=== PATIENT | female | born 1935 | race Caucasian/White ===

== ENCOUNTER → 2023-07-12 11:41 | Outpatient (CLI) | payer MEDICARE, OTHER, SELFPAY ==
[2023-07-12 12:56] LABS: Add Manual Diff / Slide Review NO; Basophils Absolute Auto 100 /uL (0-100); Basophils Percent Auto 1.3 % (0-2); Eosinophils Absolute Auto 200 /uL (0-450); Eosinophils Percent Auto 1.5 % (2-4); Hematocrit 34.6 % (36-46); Lymphocytes Absolute Auto 1600 /uL (1100-4500); Lymphocytes Percent Auto 14.3 % (25-40); Mean Corpuscular HGB Conc 34.7 % (30-36); Mean Corpuscular Hemoglobin 33.3 PG (26-34); Monocytes Absolute Auto 700 /uL (0-900); Monocytes Percent Auto 6.8 % (3-14); Neutrophils Absolute Auto 8300 /uL (1500-7000); Neutrophils Percent Auto 76.1 % (50-75); Platelet Count 394 X10^3/uL (150-400); Red Cell Distribution Width 14.2 % (11.6-14.8)
[2023-07-12 14:11] LABS: Alanine Aminotransferase 10 IU/L (<35); Albumin 4.1 g/dL (3.5-5.0); Albumin Globulin Ratio 1.1 (1.0-2.8); Alkaline Phosphatase 109 U/L (38-126); Aspartate Aminotransferase 23 IU/L (14-36); BUN Creatinine Ratio 25.6 (6-22); Bilirubin Total 0.4 mg/dL (0.2-1.3); Blood Urea Nitrogen 43 mg/dL (7-17); Calcium 9.8 mg/dL (8.4-10.2); Carbon Dioxide 31 mmol/L (22-32); Chloride 95 mmol/L (98-107); Estimated Glomerular Filt Rate 29 mL/min (>60); Globulin 3.7 g/dL (1.7-4.1); Glucose 100 mg/dL (80-110); HEMOLYSIS < 15 (0-50); Potassium 5.2 mmol/L (3.4-5.1); Sodium 134 mmol/L (137-145); Total Protein 7.8 g/dL (6.3-8.2)
[2023-07-13 13:09] LABS: Creatinine Urine Random 20.5 mg/dL
[2023-07-13 13:43] LABS: Microalbumi Creatinin Ratio Ur 1146.3 ug/mg CR (<30); Microalbumin Urine Random 23.5 mg/dL (0-1.6)
== END ==
PROVIDERS: PCP Family Medicine; Referring Provider Family Medicine; Visit Provider Family Medicine
DX: I10 Essential (primary) hypertension (principal); N18.30 Chronic kidney disease, stage 3 unspecified; J44.9 Chronic obstructive pulmonary disease, unspecified; Z00.00 Encounter for general adult medical examination without abnormal findings
CPT/HCPCS: 36415; 80053; 82043; 82570; 85025

== ENCOUNTER → 2023-08-06 11:15 | Outpatient (CLI) | payer MEDICARE, OTHER, SELFPAY ==
[2023-08-06 14:49] LABS: BUN Creatinine Ratio 27.7 (6-22); Blood Urea Nitrogen 41 mg/dL (7-17); Calcium 9.4 mg/dL (8.4-10.2); Carbon Dioxide 28 mmol/L (22-32); Chloride 90 mmol/L (98-107); Estimated Glomerular Filt Rate 34 mL/min (>60); Glucose 85 mg/dL (80-110); HEMOLYSIS < 15 (0-50); Potassium 5.2 mmol/L (3.4-5.1); Sodium 128 mmol/L (137-145)
== END ==
PROVIDERS: PCP Family Medicine; Referring Provider Family Medicine; Visit Provider Family Medicine
DX: E87.5 Hyperkalemia (principal)
CPT/HCPCS: 36415; 80048

== ENCOUNTER → 2024-01-04 09:37 | Outpatient (CLI) | payer MEDICARE, OTHER, SELFPAY ==
[2024-01-04 11:06] LABS: Hematocrit 31.4 % (36-46); Hemoglobin 10.7 g/dL (12.0-16.0)
[2024-01-04 11:26] LABS: BUN Creatinine Ratio 17.3 (6-22); Blood Urea Nitrogen 28 mg/dL (7-17); Calcium 8.9 mg/dL (8.4-10.2); Carbon Dioxide 31 mmol/L (22-32); Chloride 91 mmol/L (98-107); Estimated Glomerular Filt Rate 30 mL/min (>60); Glucose 141 mg/dL (80-110); HEMOLYSIS < 15 (0-50); Potassium 4.5 mmol/L (3.4-5.1); Sodium 127 mmol/L (137-145)
[2024-01-04 14:04] LABS: Creatinine Urine Random 42.2 mg/dL; Protein (Total) Urine Random 116 mg/dL (0-12); Protein Creatinine Ratio Urine 2.74 GRAM/24H
== END ==
PROVIDERS: PCP Physician Assistant; Referring Provider Student in an Organized Health Care Education/Training Program; Visit Provider Student in an Organized Health Care Education/Training Program
DX: N05.9 Unspecified nephritic syndrome with unspecified morphologic changes (principal); D64.9 Anemia, unspecified; R80.9 Proteinuria, unspecified
CPT/HCPCS: 36415; 80048; 82570; 84156; 85014; 85018

== ENCOUNTER → 2024-02-21 09:05 | Outpatient (CLI) | payer MEDICARE, OTHER, SELFPAY ==
[2024-02-21 10:28] LABS: Hematocrit 32.8 % (36-46); Hemoglobin 11.1 g/dL (12.0-16.0); Mean Corpuscular Hemoglobin 32.2 PG (26-34); Mean Corpuscular Volume 94.6 fL (80-100); Platelet Count 396 X10^3/uL (150-400); Red Blood Cell Count 3.46 X10^6/uL (4.0-5.2); Red Cell Distribution Width 14.4 % (11.6-14.8); White Blood Cell Count 7.8 X10^3/uL (4.5-11.0)
[2024-02-21 12:02] LABS: Appearance Urine UA CLEAR; Bilirubin Urine UA NEGATIVE (NEGATIVE); Color Urine UA YELLOW; Glucose Urine UA NEGATIVE (Negative); Ketones Urine UA NEGATIVE (NEGATIVE); Leukocyte Esterase Urine UA TRACE (NEGATIVE); Nitrite Urine UA NEGATIVE (Negative); Occult Blood Urine UA NEGATIVE (Negative); Protein Urine UA 1+ (Negative); Urobilinogen Urine UA 0.2 E.U./dL (0.2)
[2024-02-21 13:49] LABS: Bacteria Urine Few (2-10); RBC Urine 0-1/HPF (0-5/HPF); Urine Volume 10mL (spun)
[2024-02-21 13:50] LABS: Culture Indicated Urine Specimen Cultured; Squamous Epithelial Cell Urine 1-5 /HPF (0-5/HPF); WBC Urine 5-10/HPF (0-5/HPF); White Blood Cell Casts Urine 0-1/LPF
[2024-02-21 17:41] LABS: Creatinine Urine Random 36.28 mg/dL; Protein (Total) Urine Random 101 mg/dL (0-12); Protein Creatinine Ratio Urine 2.78 GRAM/24H; Sodium Urine Random 83 mmol/L (30-90)
[2024-02-21 20:30] LABS: Vitamin D 25 Hydroxy (D3) 51.6 ng/mL (30.0-100.0)
[2024-02-22 13:16] LABS: Albumin 3.9 g/dL (3.5-5.0); BUN Creatinine Ratio 17.5 (6-22); Blood Urea Nitrogen 29 mg/dL (7-17); Calcium 8.9 mg/dL (8.4-10.2); Carbon Dioxide 32 mmol/L (22-32); Chloride 96 mmol/L (98-107); Estimated Glomerular Filt Rate 29 mL/min (>60); Glucose 187 mg/dL (80-110); HEMOLYSIS < 15 (0-50); Phosphorous 3.7 mg/dL (2.8-4.1); Potassium 4.4 mmol/L (3.4-5.1); Sodium 133 mmol/L (137-145)
[2024-02-22 13:19] LABS: HEMOLYSIS < 15 (0-50); Thyroid Stimulating Hormone 3.62 uIU/mL (0.47-4.68)
[2024-02-22 13:38] LABS: Osmolality Urine 304 mOsmol/kg (.); Osmolality, Serum 293 mOsmol/kg (280-301)
[2024-02-22 13:49] LABS: Cortisol AM (Before 10AM) 17.5 ug/dL (4.46-22.7)
[2024-02-22 20:13] LABS: Iron 79 ug/dL (37-170)
[2024-02-22 20:24] LABS: Percent Iron Saturation 27 % (15-50); Total Iron Binding Capacity 295 ug/dL (265-497); Transferrin 226 mg/dL (206-381)
== END ==
PROVIDERS: PCP Physician Assistant; Referring Provider Student in an Organized Health Care Education/Training Program; Visit Provider Internal Medicine Nephrology
DX: E87.1 Hypo-osmolality and hyponatremia (principal); E83.30 Disorder of phosphorus metabolism, unspecified; D70.9 Neutropenia, unspecified; N05.9 Unspecified nephritic syndrome with unspecified morphologic changes; D47.2 Monoclonal gammopathy; N18.4 Chronic kidney disease, stage 4 (severe); N30.00 Acute cystitis without hematuria; E03.9 Hypothyroidism, unspecified; N25.81 Secondary hyperparathyroidism of renal origin; D63.1 Anemia in chronic kidney disease; I12.9 Hypertensive chronic kidney disease with stage 1 through stage 4 chronic kidney disease, or unspecified chronic kidney disease
CPT/HCPCS: 36415; 80069; 81001; 82043; 82306; 82533; 82570; 83540; 83550; 83930; 83935; 83970; 84156; 84300; 84443; 85027; 87086

== ENCOUNTER → 2024-05-20 07:13 | Outpatient (CLI) | payer MEDICARE, OTHER, SELFPAY ==
[2024-05-20 09:16] LABS: Hematocrit 33.6 % (36-46); Hemoglobin 11.4 g/dL (12.0-16.0)
[2024-05-20 09:51] LABS: BUN Creatinine Ratio 15.5 (6-22); Blood Urea Nitrogen 25 mg/dL (7-17); Calcium 9.2 mg/dL (8.4-10.2); Carbon Dioxide 28 mmol/L (22-32); Chloride 94 mmol/L (98-107); Estimated Glomerular Filt Rate 31 mL/min (>60); Glucose 189 mg/dL (80-110); HEMOLYSIS < 15 (0-50); Potassium 4.6 mmol/L (3.4-5.1); Sodium 130 mmol/L (137-145)
[2024-05-20 09:59] LABS: Creatinine Urine Random 76.54 mg/dL; Protein (Total) Urine Random 164 mg/dL (0-12); Protein Creatinine Ratio Urine 2.14 GRAM/24H
== END ==
PROVIDERS: PCP Physician Assistant; Referring Provider Student in an Organized Health Care Education/Training Program; Visit Provider Student in an Organized Health Care Education/Training Program
DX: N05.9 Unspecified nephritic syndrome with unspecified morphologic changes (principal); D70.9 Neutropenia, unspecified; D63.1 Anemia in chronic kidney disease; N25.81 Secondary hyperparathyroidism of renal origin; R80.9 Proteinuria, unspecified
CPT/HCPCS: 36415; 80048; 82570; 83970; 84156; 85014; 85018

== ENCOUNTER 2024-11-05 14:15 | Outpatient (RCR) | payer MEDICARE, OTHER, SELFPAY ==
[2024-06-27 17:15] VITALS: BMI 21.9
== END 2024-11-05 16:15 ==
LOC: PUL 14:15
PROVIDERS: PCP Physician Assistant; Referring Provider Student in an Organized Health Care Education/Training Program; Visit Provider Student in an Organized Health Care Education/Training Program
DX: R09.02 Hypoxemia (principal)
CPT/HCPCS: G0237; G0238

== ENCOUNTER → 2024-12-16 12:01 | Outpatient (CLI) | payer MEDICARE, OTHER, SELFPAY ==
[2024-06-27 17:15] VITALS: BMI 21.9
[2024-12-16 13:19] LABS: Hematocrit 35.6 % (36-46)
[2024-12-16 13:30] LABS: BUN Creatinine Ratio 13.6 (6-22); Blood Urea Nitrogen 19 mg/dL (7-17); Calcium 9.8 mg/dL (8.4-10.2); Carbon Dioxide 31 mmol/L (22-32); Chloride 95 mmol/L (98-107); Estimated Glomerular Filt Rate 36 mL/min (>60); Glucose 105 mg/dL (80-110); HEMOLYSIS 20 (0-50); Sodium 133 mmol/L (137-145)
[2024-12-16 13:48] LABS: Potassium 5.7 mmol/L (3.4-5.1)
[2024-12-16 14:03] LABS: Creatinine Urine Random 52.59 mg/dL; Protein (Total) Urine Random 187 mg/dL (0-12); Protein Creatinine Ratio Urine 3.55 GRAM/24H
== END ==
PROVIDERS: PCP Physician Assistant; Referring Provider Student in an Organized Health Care Education/Training Program; Visit Provider Student in an Organized Health Care Education/Training Program
DX: N05.9 Unspecified nephritic syndrome with unspecified morphologic changes (principal); D70.9 Neutropenia, unspecified; D63.1 Anemia in chronic kidney disease; N25.81 Secondary hyperparathyroidism of renal origin; R80.9 Proteinuria, unspecified
CPT/HCPCS: 36415; 80048; 82570; 83970; 84156; 85014; 85018

== ENCOUNTER → 2024-12-26 07:43 | Outpatient (CLI) | payer MEDICARE, OTHER, SELFPAY ==
[2024-06-27 17:15] VITALS: BMI 21.9
[2024-12-26 08:19] LABS: HEMOLYSIS < 15 (0-50); Potassium 4.4 mmol/L (3.4-5.1)
== END ==
PROVIDERS: PCP Physician Assistant; Referring Provider Student in an Organized Health Care Education/Training Program; Visit Provider Student in an Organized Health Care Education/Training Program
DX: E87.5 Hyperkalemia (principal)
CPT/HCPCS: 36415; 84132

== ENCOUNTER → 2025-02-17 07:17 | Outpatient (CLI) | payer MEDICARE, OTHER, SELFPAY ==
[2024-06-27 17:15] VITALS: BMI 21.9
--- NOTE | 2025-02-17 07:18 | DI.CT.S_ITS ---
PROCEDURE: CT CHEST WO CON INDICATIONS: Hypoxia, XR with possible fibrosis vs edema TECHNIQUE: Noncontrast 5 mm thick sections acquired from the pulmonary apices to the posterior costophrenic angles. 1 mm lung window, 5 mm thick coronal and sagittal and 7 mm axial MIP reformats were then acquired. For radiation dose reduction, the following was used: automated exposure control, adjustment of mA and/or kV according to patient size. COMPARISON: [facility], CR, XR CHEST 2V, 08/07/2024, 12:13. [facility], CR, XR CHEST 2V, 12/02/2024, 16:15. FINDINGS: Image quality: Diagnostic. Lower Neck: No enlarged lymph nodes. Thyroid: No thyroid nodules which require sonographic follow up, per consensus guidelines. Axillae: No enlarged lymph nodes. Chest Wall: Unremarkable. Bones: Unremarkable. Lungs and Pleura: Consolidation of the left lower lobe . Centrilobular nodules in the lower lobes. Diffuse central bronchial thickening with multiple secretions. Volume loss and bronchiectasis in the right middle lobe and lingula. Small pleural effusions. Smooth interstitial thickening. Heart: Heart size is enlarged. No pericardial effusion. Thoracic Vessels: The aorta and pulmonary arteries demonstrate normal size. Mediastinum and Dawn: No enlarged lymph nodes. Esophagus: No wall thickening. Moderate hiatal hernia. Upper Abdomen: Visualized upper abdomen solid organs and bowel loops appear normal. IMPRESSION: Consolidation of the left lower lobe, with associated centrilobular nodules in the lower lobes. Findings may indicate aspiration pneumonia versus community-acquired pneumonia with superimposed infectious/inflammatory bronchiolitis. Recommend short-term follow-up (1-2 months) to ensure resolution and exclude malignancy. 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 Moderate pulmonary edema and small pleural effusions. Dictated by: Irineo Mcginnis M.D. on 02/17/2025 at 9:29 Approved by: Irineo Mcginnis M.D. on 02/17/2025 at 9:32
[2025-02-17 08:19] LABS: Hematocrit 30.5 % (36-46); Hemoglobin 10.3 g/dL (12.0-16.0)
[2025-02-17 08:50] LABS: BUN Creatinine Ratio 16.3 (6-22); Blood Urea Nitrogen 25 mg/dL (7-17); Calcium 8.7 mg/dL (8.4-10.2); Carbon Dioxide 31 mmol/L (22-32); Chloride 96 mmol/L (98-107); Estimated Glomerular Filt Rate 32 mL/min (>60); Glucose 116 mg/dL (70-99); HEMOLYSIS 21 (0-50); Potassium 4.5 mmol/L (3.4-5.1); Sodium 135 mmol/L (137-145)
[2025-02-18 06:39] LABS: Parathyroid Hormone Int 33 pg/mL (15-65)
[2025-02-18 09:04] LABS: Creatinine Urine Random 38.29 mg/dL; Protein (Total) Urine Random 74 mg/dL (0-12); Protein Creatinine Ratio Urine 1.93 GRAM/24H
== END ==
PROVIDERS: PCP Physician Assistant; Referring Provider Student in an Organized Health Care Education/Training Program; Visit Provider Student in an Organized Health Care Education/Training Program
DX: R91.8 Other nonspecific abnormal finding of lung field (principal); J47.9 Bronchiectasis, uncomplicated; J90 Pleural effusion, not elsewhere classified; J81.1 Chronic pulmonary edema; I51.7 Cardiomegaly; K44.9 Diaphragmatic hernia without obstruction or gangrene; R09.02 Hypoxemia; N05.9 Unspecified nephritic syndrome with unspecified morphologic changes; D70.9 Neutropenia, unspecified; D63.1 Anemia in chronic kidney disease; N25.81 Secondary hyperparathyroidism of renal origin; R80.9 Proteinuria, unspecified
CPT/HCPCS: 36415; 71250; 80048; 82570; 83970; 84156; 85014; 85018

== ENCOUNTER → 2025-04-14 08:09 | Outpatient (CLI) | payer MEDICARE, OTHER, SELFPAY ==
[2025-02-20 21:08] VITALS: BMI 19.5
--- NOTE | 2025-04-14 08:12 | DI.RAD.S_ITS ---
PROCEDURE: XR CHEST 2V INDICATIONS: fu pneumonia TECHNIQUE: 2 views of the chest were acquired. COMPARISON: [facility], CR, XR CHEST 1V, 02/20/2025, 13:47. FINDINGS: Surgical changes and devices: For Lungs and pleura: Moderate diffuse increased prominence of the pulmonary vasculature. Chronic appearing scarring of the right costophrenic angle. The lungs are otherwise clear without evidence of focal consolidation. No definite pleural effusions or pneumothorax. Mediastinum: The heart is enlarged. Mediastinal contours are otherwise normal. Bones and chest wall: No suspicious bony abnormalities. Soft tissues appear unremarkable. IMPRESSION: Chronic appearing changes including cardiomegaly and diffuse increased prominence of the pulmonary vasculature as well as scarring of the right lateral costophrenic angle. No definite evidence of acute cardiopulmonary process. Dictated by: Raffi Navarro M.D. on 04/14/2025 at 10:34 Approved by: Raffi Navarro M.D. on 04/14/2025 at 10:35
[2025-04-14 09:54] LABS: NT-proBNP (BNP-Adult 18+) 2950 pg/mL (<450)
== END ==
PROVIDERS: PCP Family Medicine; Referring Provider Internal Medicine; Visit Provider Internal Medicine
DX: I50.9 Heart failure, unspecified (principal); J96.11 Chronic respiratory failure with hypoxia; J15.69 Pneumonia due to other Gram-negative bacteria; J44.9 Chronic obstructive pulmonary disease, unspecified; R13.12 Dysphagia, oropharyngeal phase; I51.7 Cardiomegaly
CPT/HCPCS: 36415; 71046; 83880

== ENCOUNTER → 2025-08-13 09:51 | Outpatient (CLI) | payer MEDICARE, OTHER, SELFPAY ==
[2025-02-20 21:08] VITALS: BMI 19.5
--- NOTE | 2025-08-13 12:26 | ST.SWALLOW ---
Visit Care Team Role Provider Type Harshal Aleman MD Attending Provider Physician Family Provider Primary Care Provider Referring Provider Specialty: Family Practice Address: [address] [place], [place] [address], [address] Email: Modified Barium Swallow Study BRAKE REPAIRER HYDRAULIC Modified Barium Swallow Study Start: 08/13/25 11:01 Freq: Status: Active Protocol: Document 08/13/25 11:02 LNK (Rec: 08/13/25 12:25 LNK Desktop) Modified Barium Swallow Study Total Time Visit Start Time 10:00 Visit Stop Time 10:45 Total Visit Minutes [address] Holly Reason for Referral Dysphagia; silent aspiration Setting Setting Outpatient Care Patient Information Identification Type Name,Date of Patient History 89 y/o with PMH of COPD, hypoxemic respiratory failure since requiring home oxygen, recurrent pneumonia, HTN, anxiety, depression, suspected ILD, 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 Pt had a prior MBSS on while an inpt for recurrent dyspnea. The results of that MBSS indicated moderate to severe oropharyngeal dysphagia. Pt was described as at a high aspiration risk of secretions and residual foods/ liquids within pharynx. Aspiration was observed with out reflexive cough noted. She reported difficulty swallowing liquids, pills and solids. She has a history of recurrent pneumonia and weight loss. pt is currently in swallow therapy for training in preventative exercises and compensatory strategies to improve swallowing safety and efficiency. BRAKE REPAIRER HYDRAULIC requested that pt have repeat MBSS to determine the efficacy of pharyngeal exercises and safe swallow strategies. Subjective Pt was seated in the flouroscopy chair with directions Observations and procedures explained for her. She indicated he understood and agreed to proceed. Patient Positioning Position View Lateral Imaging Lateral View Textures Administered Trials Presented Thin Liquid via Spoon (IDDSI 0),Thin Liquid via Cup ( IDDSI 0),Extremely Thick Liquid via Spoon (IDDSI 4), Regular (IDDSI 7) Barium Tablet Yes The IDDSI Framework Protocol: IDDSI.1 Oral Impairment Source: The Modified Barium Swallow Impairment Profile (MBSImP??) Lip Closure Interlabial escape; no progression to anterior lip Tongue Control Cohesive bolus between tongue to palatal seal During Bolus Hold Bolus Preparation/ Disorganized chewing/mashing with solid pieces of bolus Mastication unchewed Bolus Transport/ Delayed initiation of tongue motion Lingual Motion Oral Residue Residue collection on oral structures Location Tongue,Lateral sulci Initiation of Bolus head at pyriforms Pharyngeal Swallow Additional Oral *OME and DKS were observed to be WFL. Impairment *Dentition consisted a a few upper teeth and 3 lower Observations teeth. *Mastication observed with anterior munching pattern with solid pieces of bolus unchewed *Reduced bolus formation, control and delayed AP transition. *Initiation of swallow delayed Pharyngeal Impairment Source: The Modified Barium Swallow Impairment Profile (MBSImP??) Soft Palate Trace column of contrast between soft palate & Elevation pharyngeal wall Laryngeal Elevation Part.sup.move.thyroid cart/part.approx.arytenoids to epiglot.petiole Anterior Hyoid No anterior movement Excursion Epiglottic Movement Partial inversion Laryngeal Vestibular Incomplete; narrow column air/contrast in laryngeal Closure vestibule Pharyngeal Stripping Present - diminished Wave Pharyngoesophageal Partial distention/partial duration; partial Segment Opening obstruction of flow Tongue Base Wide column of contrast/air betwn tongue base & post. Retraction pharyngeal wall Pharyngeal Residue Minimal to no pharyngeal clearance Location Diffuse (>3 areas) Additional *Weak tongue base retraction and hyolaryngeal elevation Pharyngeal and movement. Weak pharyngeal musculature overall Impairment *Weak posterior pharyngeal strength, reducing bolus Observations control *Epiglottic inversion inconsistent: No inversion to full observed with weak seal of the laryngeal vestibule *Significant diffuse pharyngeal pooling observed *Laryngeal penetration of pharyngeal residue *No tracheal aspiration observed *Reduced extension/duration of UES with partial obstruction of bolus flow *In the lateral position a barium tablet was retained in the valeculla. Cued effortful swallow was effective in clearing tablet to the esophagus *Pt observed to use double swallow strategy as instructed by BRAKE REPAIRER HYDRAULIC A/P View The IDDSI Framework Protocol: IDDSI.1 A/P View Observations Additional A-P No AP trials were attempted Observations Clinical Impressions Dysphagia Type Oral,Pharyngeal Findings *Mild oral dysphagia with moderate pharyngeal phase observed *Laryngeal penetration of pharyngeal residue/secretions observed *Pt is moderate aspiration risk of secretions and residual foods/liquids within pharynx - this is an improvement from MBSS result of 02/24/25 *Double swallow was observed spontaneously with minimal effect on pharyngeal residue (semi-solid and solid trials) *Effortful swallow strategy (repeated) was effective in residue clearance. Multiple swallows were required ( cued) Current safe swallow strategies effective. Recommend to continue *Weak cough Rehabilitation Good Potential Patient Appropriate Yes: Continue current ST POC for Therapy Recommendations Diet Liquids Order Thin (IDDSI 0) Diet Order Soft & Bite-sized (IDDSI 6) Medication Whole in Carrier,Crushed in Carrier Recommendation Aspiration Precautions Recommended Upright at 90 Degrees,Small Bites/Sips Precautions Treatment Plan Therapy Outpatient Speech Therapy Recommendations Therapy Strategy Small Bites and Sips Recommendations Additional Effortful swallow and double swallow strategies Strategies Recommended
== END ==
LOC: RAD 09:52
PROVIDERS: Family Provider Family Medicine; PCP Family Medicine; Referring Provider Family Medicine; Visit Provider Family Medicine
DX: R13.10 Dysphagia, unspecified (principal)
CPT/HCPCS: 74230; 92611

== ENCOUNTER 2025-09-10 13:45 | Outpatient (RCR) | payer MEDICARE, OTHER, SELFPAY ==
[2025-02-20 21:08] VITALS: BMI 19.5
--- NOTE | 2025-07-23 18:34 | ST.OPIE ---
Visit Care Team Role Provider Type Harshal Aleman MD Family Provider Physician Primary Care Provider Specialty: Family Practice Address: [address] [place] [address], [id number] Email: Nahun Jacobs MD Attending Provider Physician Referring Provider Specialty: Pulmonology Address: [address] [place] [address] [address], [place], [address] Email: [email or web address] Speech-Language Pathology Initial Evaluation THIRD RIGGER Clinical Swallow Evaluation Start: 07/23/25 17:52 Freq: Status: Active Protocol: Document 07/23/25 17:52 SS (Rec: 07/23/25 18:34 SS [email or web address]) Clinical Swallow Evaluation Session Time Visit Start Time 14:30 Visit Stop Time 15:15 Total Visit Minutes 45 Visit Information Visit Number 1 Plan of Care Dates 07/23/25-10/22/25 Insurance Medicare (kx modifier after x19 visits) Information Referral Referring Provider Nahun Jacobs MD Reason for Referral Dysphagia Setting Assessment Location Outpatient Care Visit Type Note Type Initial evaluation Next Note Type Next Note Type Treatment Note Patient Information Identification Type Name History Abbie Gray is an 89-year-old female, referred for a clinical swallow evaluation by Dr. Nahun Jacobs following MBSS completed in February 2025. Pt was hospitalized from February 20 to Feb 25 2025 with multifocal pneumonia secondary to ongoing frequent daily aspiration with acute on chronic hypoxic respiratory failure. 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 Chest x-ray showed a large hiatal hernia which is predisposing dysphagia risk factor. Pt denied GERD, esophageal issues, and changes to voice. Pt endorses changes in swallowing around two years ago, which have gradually become worse. She denied overt s/ sx of aspiration of sensation of solids sticking in her throat. She reported unintentional weight loss of about 20 lbs over the past two years. MBSS was completed on 02/24/25 with the following results: ? Moderate to severe oropharyngeal dysphagia. Pt is high aspiration risk of secretions and residual foods/ liquids within pharynx. Double swallow (cued) is beneficial in reducing secretions/residual. Weak cough. ? Additionally, pt demonstrated ?frequent penetration into the laryngeal vestibule of contrast residue/ secretions and tracheal aspiration observed with no reflexive cough; cued cough did not clear aspirated contrast.? Please see full MBSS report. Subjective Pt arrived ot he session on time with her granddaughter Observations . She lives with family. Pt had NC in place of supplemental oxygen. She was alert and oriented and able to relate case history. Reported by Patient/Caregiver Other Symptoms Difficulty swallowing liquids,Difficulty swallowing pills,Difficulty swallowing solids,History of aspiration or pneumonia,Weight loss Comment Pt denied overt s/sx of aspiration and it appears that aspiration is silent given MBSS report. She does not sensate to pharyngeal residue. Pt was seen by home health following hospital stay and has been completing exercises. Additionally, she is careful to cut her food and uses a double-swallow with all intake. BASELINE LEVEL OF FUNCTION Solids: Regular (self-selects softer items) Liquids: Thin Medications: Whole in puree carrier Functional Oral Intake Scale (FOIS): FOIS level 6 FOIS [place]: Level 1 = no oral intake, Level 2 = tube dependent with minimal/inconsistent oral intake, Level 3 = tube supplements with consistent oral intake, Level 4 = total oral intake of a single consistency, Level 5 = total oral intake of multiple consistencies requiring special preparation, Level 6 = total oral intake with no special preparation, but must avoid specific foods or liquid items, Level 7 = total oral intake with no restrictions Current Diet Regular (IDDSI 7) Baseline Feeding Independent in self-feeding Method Type of Patient EAT-10 Questionnaire (e.g., EAT-10, MDADI, etc. ) Results The Eating Assessment Tool (EAT-10) was administered. This tool is a symptom-specific outcome instrument for dysphagia. It consists of ten statements regarding the patient?s swallow and the patient scores each on a scale of 0-4, with 0 indicating no problem and 4 indicating a severe problem. A score of >3/40 could indicate a swallowing impairment that warrants further assessment/treatment. The patient scored a 8/40, indicating the need for further assessment. The IDDSI Framework Protocol: IDDSI.1 Objective Assessment Mental Status Alert,Responsive,Cooperative Oral Integrity WFL Dentition Missing teeth Lip Function Within normal limits Tongue Function Within normal limits Jaw Function Within normal limits Hard/Soft Palate Within normal limits Function Respiratory Mild impairment Sufficiency Comment On supplemental oxygen via NC. Food and Liquid Trials Position During Upright (90 degrees) Assessment Liquids Trialed Thin (IDDSI 0) Solid Trials Purred (IDDSI 4),Soft & Bite-sized (IDDSI 6),Regular ( IDDSI 7) Administration Type Cup single sip,Controlled cup sip,Self-feeding Oral Impairment Mildly impaired Oral Phase Comments Per MBSS report: Lip Closure: Interlabial escape; no progression to anterior lip Tongue Control During Bolus Hold: Cohesive bolus between tongue to palatal seal Bolus Preparation/Mastication: Disorganized chewing/ mashing with solid pieces of bolus unchewed Bolus Transport/Lingual Motion: Delayed initiation of tongue motion Oral Residue: Residue collection on oral structures Initiation of Pharyngeal Swallow: Bolus head at pyriforms During trials, pt demonstrated adequate bolus retrieval and mild anterior loss of liquids. She exhibited mildly prolonged bolus manipulation and reduced oral clearance resulting in moderate oral residue. Pt cleared independently with liquid wash. Pharyngeal Severely impaired Impairment Pharyngeal Phase Per MBSS report: Comments Soft Palate Elevation: No bolus between soft palate & pharyngeal wall Laryngeal Elevation: Partial superior movement of thyroid cartilage and partial approximation of arytenoids to epiglottic petiole Anterior Hyoid Excursion: No anterior movement Epiglottic Movement: No inversion (ranging from partial inversion to no inversion) Laryngeal Vestibular: Closure Incomplete; narrow column air/ contrast in laryngeal vestibule Pharyngeal Stripping Wave: Present - diminished Pharyngoesophageal Segment Opening: Complete distention & complete duration; no obstruction of flow Tongue Base Retraction: Wide column of contrast/air between tongue base & posterior pharyngeal wall Pharyngeal Residue: Collection of residue within/on pharyngeal structures Additionally, frequent penetration into the laryngeal vestibule of contrast residue/secretions was noted. Tracheal aspiration observed with no reflexive cough; cued cough did not clear aspirated contrast. While pt did not demonstrate overt s/sx of aspiration or sensate to pharyngeal residue during trials today, pt has history of reduced pharyngeal sensation and silent aspiration given MBSS results. Fatigue/Endurance Mild fatigue Strategies Attempted Other Response/Comments Use of multiple swallows was effective during MBSS in reducing pharyngeal residue, though not completely. Neela Swallow No Protocol Results Known silent aspiration The IDDSI Framework Protocol: IDDSI.1 Findings Swallowing Function Oropharyngeal phase dysphagia Severity of Swallow Moderately-severely impaired Impairment Contributing Factors Reduced oral strength/coordination/sensation, to Swallow Mastication inefficiency,Impaired oral-pharyngeal Impairment transport,Delayed swallow initiation,Reduced laryngeal excursion,Impaired airway protection,Excessive pharyngeal residue Prognosis Fair Based on Age,History of aspiration/aspiration pneumonia, Comorbidities,Duration of symptoms/severity Comment Pt presents with mild oral dysphagia and moderate- severe pharyngeal dysphagia. Oral phase of swallow characterized by interlabial escape, disorganized mastication, delayed initiation of tongue motion, and oral residue. Pharyngeal phase of swallow was characterized by diminished pharyngeal stripping wave, reduced tongue base retraction, reduced laryngeal elevation and excursion, and inconsistent epiglottic inversion. This resulted in collection of pharyngeal residue primarily at the base of tongue, posterior pharyngeal wall, valleculae, and pyriform sinuses, frequent penetration, and silent aspiration. Swallow safety and efficiency are compromised. Based on pt?s current fair oral health status and compromised immune function, pt remains at a high risk of pulmonary compromise associated with aspiration at this time. Pt appears to be at a moderate risk for malnutrition/ dehydration given reduced appetite and weight loss. Diet modification/nonoral nutrition not indicated. Swallow prognosis is fair, given chronic nature of pt?s dysphagia and present comorbidities. Pt appears to be a good candidate for behavioral swallow rehabilitation for training in preventative exercises and compensatory strategies to improve swallowing safety and efficiency . Impact on Safety and Risk for aspiration,Risk for inadequate nutrition/ Functioning hydration Recommendations Instrumental Yes Assessment Swallowing Treatment Yes Frequency 1x/week Duration 3 months Recommended Solids Regular (IDDSI 7) Recommended Liquids Thin (IDDSI 0) Other Pt would benefit from repeat MBSS, though pt is Recommendations reluctant to complete at this time. Safety Precautions/ Remain upright (90 degrees) during all oral intake, Swallowing Upright position at least 30 minutes after meals,Small Recommendations bites and sips when eating,Slow rate; swallow between bites,No straw,Multiple swallows,Alternate liquids and solids,Strict oral care after intake,Check for pocketing Medication As Tolerated,Whole in Carrier,Crushed in Carrier Recommendations Referrals Recommended Dietary Referrals Education Patient/Caregiver Described results of evaluation,Patient expressed Education understanding of evaluation,Patient expressed agreement with goals & treatment plans Goals Short-term Goals 1. Patient will complete pharyngeal swallowing exercises as instructed by the THIRD RIGGER with the use of written supports and verbal cueing in order to improve swallow function and efficiency; including, but not limited to, effortful swallow, Michel, Chin Tuck Against Resistance (CTAR), Shaker, and supraglottic swallow to improve pharyngeal contraction. 2. Patient will complete daily exercises as evidenced by patient report and/or HEP tracker in order to improve swallow function. 3. Patient will use compensatory meal strategies with 90% accuracy to increase safety with PO intake per pt report. Long-term Goals 1. Patient will safely tolerate least restrictive diet consistency to allow for safe consumption of daily meals without s/sx of aspiration. 2. Patient will improve self-perception of swallowing from a baseline of on the EAT-10 following participation in [facility] rehabilitative [facility]
--- NOTE | 2025-07-23 18:34 | ST.OPPOC ---
Physical, Occupational & Speech Therapy At [facility] Visit Care Team Role Provider Type Harshal Aleman MD Family Provider Physician Primary Care Provider Address: [address] [place] [address], [place], [address] Nahun Jacobs MD Attending Provider Physician Referring Provider Address: [address] [place] [address] [address], [place], [address] Speech Pathology Plan of Care Plan of Care Dates 07/23/25-10/22/25 Referring Provider Nahun Jacobs MD Patient History Abbie Gray is an 89-year-old female, referred for a clinical swallow evaluation by Dr Yuni Jacobs following MBSS completed in February 2025. Pt was hospitalized from February 20 to Feb 25 2025 with multifocal pneumonia secondary to ongoing frequent daily aspiration with acute on chronic hypoxic respiratory failure. 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 Chest x-ray showed a large hiatal hernia which is predisposing dysphagia risk factor. Pt denied GERD, esophageal issues, and changes to voice. Pt endorses changes in swallowing around two years ago, which have gradually become worse. She denied overt s/sx of aspiration of sensation of solids sticking in her throat. She reported unintentional weight loss of about 20 lbs over the past two years. MBSS was completed on 02/24/25 with the following results: ?Moderate to severe oropharyngeal dysphagia. Pt is high aspiration risk of secretions and residual foods/liquids within pharynx. Double swallow (cued) is beneficial in reducing secretions/residual. Weak cough.? Additionally, pt demonstrated ?frequent penetration into the laryngeal vestibule of contrast residue/secretions and tracheal aspiration observed with no reflexive cough; cued cough did not clear aspirated contrast.? Please see full MBSS report. MBS Comments *Moderate to severe oropharyngeal dysphagia *Pt is high aspiration risk of secretions and residual foods/liquids within pharynx *Double swallow (cued) is beneficial in reducing secretions/residual *Weak cough ST/swallow therapy recommended targeting base of tongue and safe swallow strategies Short-term Goals 1. Patient will complete pharyngeal swallowing exercises as instructed by the BUCKSHOT SWAGE OPERATOR with the use of written supports and verbal cueing in order to improve swallow function and efficiency; including, but not limited to, effortful swallow , Michel, Chin Tuck Against Resistance (CTAR ), Shaker, and supraglottic swallow to improve pharyngeal contraction. 2. Patient will complete daily exercises as evidenced by patient report and/or HEP tracker in order to improve swallow function. 3. Patient will use compensatory meal strategies with 90% accuracy to increase safety with PO intake per pt report. Long-term Goals 1. Patient will safely tolerate least restrictive diet consistency to allow for safe consumption of daily meals without s/sx of aspiration. 2. Patient will improve self-perception of swallowing from a baseline of on the EAT-10 following participation in skilled rehabilitative services Comment: Electronically Signed by: CAROLINA Blanton 07/23/25 1821 If you are in agreement with this Plan of Care, please return a signed and dated copy. I have reviewed this Plan of Care and certify that the skilled therapy services above are required to meet the patient?s needs. Physician Signature Date Printed Name and Credentials Clinical Instructor Signature Printed Name and Credentials
--- NOTE | 2025-07-23 18:43 | ST.OPPOC ---
Addendum entered and electronically signed by Daryl Nielsen 07/23/25 18:45: POC sent to referring provider. Original Note: Physical, Occupational & Speech Therapy At [facility] Visit Care Team Role Provider Type Harshal Aleman MD Family Provider Physician Primary Care Provider Address: [address] [place] [address], [address] Nahun Jacobs MD Attending Provider Physician Referring Provider Address: [address] [place] [address] [address], [place], [address] Speech Pathology Plan of Care Plan of Care Dates 07/23/25-10/22/25 Referring Provider Nahun Jacobs MD Patient History Abbie Gray is an 89-year-old female, referred for a clinical swallow evaluation by Dr Yuni Jacobs following MBSS completed in February 2025. Pt was hospitalized from February 20 to Feb 25 2025 with multifocal pneumonia secondary to ongoing frequent daily aspiration with acute on chronic hypoxic respiratory failure. 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 Chest x-ray showed a large hiatal hernia which is predisposing dysphagia risk factor. Pt denied GERD, esophageal issues, and changes to voice. Pt endorses changes in swallowing around two years ago, which have gradually become worse. She denied overt s/sx of aspiration of sensation of solids sticking in her throat. She reported unintentional weight loss of about 20 lbs over the past two years. MBSS was completed on 02/24/25 with the following results: ?Moderate to severe oropharyngeal dysphagia. Pt is high aspiration risk of secretions and residual foods/liquids within pharynx. Double swallow (cued) is beneficial in reducing secretions/residual. Weak cough.? Additionally, pt demonstrated ?frequent penetration into the laryngeal vestibule of contrast residue/secretions and tracheal aspiration observed with no reflexive cough; cued cough did not clear aspirated contrast.? Please see full MBSS report. MBS Comments *Moderate to severe oropharyngeal dysphagia *Pt is high aspiration risk of secretions and residual foods/liquids within pharynx *Double swallow (cued) is beneficial in reducing secretions/residual *Weak cough ST/swallow therapy recommended targeting base of tongue and safe swallow strategies Short-term Goals 1. Patient will complete pharyngeal swallowing exercises as instructed by the MAINTAINABILITY ENGINEER with the use of written supports and verbal cueing in order to improve swallow function and efficiency; including, but not limited to, effortful swallow , Michel, Chin Tuck Against Resistance (CTAR ), Shaker, and supraglottic swallow to improve pharyngeal contraction. 2. Patient will complete daily exercises as evidenced by patient report and/or HEP tracker in order to improve swallow function. 3. Patient will use compensatory meal strategies with 90% accuracy to increase safety with PO intake per pt report. Long-term Goals 1. Patient will safely tolerate least restrictive diet consistency to allow for safe consumption of daily meals without s/sx of aspiration. 2. Patient will improve self-perception of swallowing from a baseline of on the EAT-10 following participation in skilled rehabilitative services Comment: Electronically Signed by: CAROLINA Blanton 07/23/25 [id number] If you are in agreement with this Plan of Care, please return a signed and dated copy. I have reviewed this Plan of Care and certify that the skilled therapy services above are required to meet the patient?s needs. Physician Signature Date Printed Name and Credentials Clinical Instructor Signature Printed Name and Credentials
--- NOTE | 2025-07-30 15:09 | ST.IPDYTX ---
Visit Care Team Role Provider Type Harshal Aleman MD Family Provider Physician Primary Care Provider Specialty: Family Practice Address: [address] [place] [address], [place], [address] Email: Nahun Jacobs MD Attending Provider Physician Referring Provider Specialty: Pulmonology Address: [address] [place] [address] [address], [place], [address] Email: [email or web address] Dysphagia Treatment UNDER PRESSER Dysphagia Treatment Start: 07/23/25 17:52 Freq: Status: Active Protocol: Document 07/30/25 14:53 SS (Rec: 07/30/25 15:05 SS [email or web address]) Dysphagia Treatment Session Time Visit Start Time 13:45 Visit Stop Time 14:20 Total Visit Minutes 35 Visit Information Visit Number 2 Plan of Care Dates 07/23/25-10/22/25 Insurance Medicare (kx modifier after x19 visits) Information Setting Assessment Location Outpatient Care Visit Type Note Type Treatment Note Next Note Type Next Note Type Treatment Note Patient Information Identification Type Name Subjective Pt arrived to the session on time with her Observations granddaughter. Pt had NC in place for supplemental oxygen. She was engaged and motivated to participate in the session. Treatment Liquids Trialed Thin (IDDSI 0) Solids Trialed Purred (IDDSI 4) Administration Type Tea Spoon,Cup Single Sip,Controlled Cup Sip,Self- Feeding Pharyngeal Double Swallow,Effortful Swallow,Alternate Liquids/ Strategies Solids Treatment Activities Education re: MBSS results and safe swallowing strategies. Introduced rehabilitative exercises on this date to target oropharyngeal dysphagia. Reviewed HEP at end of session and provided handouts for improved understanding and recall. Initiated form for EMST-75 Medicare coverage. The IDDSI Framework Protocol: IDDSI.1 Assessment Patient Response to Good Treatment Rehab Potential Fair Assessment of UNDER PRESSER provided education re: normal swallow anatomy and Improvement physiology and the results of the MBSS. Utilized a visual diagram to improve pt?s understanding. Pt expressed understanding re: results. Educated pt re: recommended safe swallow precautions to reduce the risk of aspiration, including small bites/ sips, slow rate, alternating liquids and solids, upright positioning during PO intake, limiting distractions, and avoiding talking while eating. Pt verbalized understanding. Introduced rehabilitative exercises on this date to target oropharyngeal dysphagia. Instructed pt in the Effortful Swallow to improve tongue to palate contact, base of tongue retraction, hyolaryngeal elevation and excursion, pharyngeal constriction, and opening of the upper esophageal sphincter for improved swallowing safety and efficiency . Provided education re: form and goal of the exercise for decreased pharyngeal residue and improved laryngeal vestibule closure. Bolus-driven effortful swallows completed with the following consistencies: Thin (about 5 ml): 21/21 successful swallows; average of 1-2 swallows per bolus. Puree (about 5 ml): 35/35 successful swallows; average of 2-3 swallows per bolus. No strong post-swallow cough was observed; however, overt s/sx of aspiration cannot be ruled out as pt presented with silent aspiration on MBSS. Pt benefited from UNDER PRESSER cueing and modeling during the exercise to slow her rate and press her tongue against the roof of his mouth. UNDER PRESSER provided education in utilizing 2 swallows if needed. Utilized visual diagram to explain how residue could build and the importance of clearing materials prior to taking another bite. Reviewed HEP at the conclusion of the session, with pt verbalizing understanding. HEP Recommendation: use safe swallowing strategies with intake, oral care TID (before and after meals), effortful swallow 30-50 reps with thin liquid and/or puree. Completed about half of the form required for Medicare coverage of EMST-75 for increased cough strength and airway protection. Plan to complete in next session. Additionally, pt expressed interest in repeat MBSS to trial strategies to reduce aspiration and determine most effective strategies. UNDER PRESSER to request PCP place order. Pt participated well in the treatment session on this date. Extensive education re: MBSS results, recommendations, and rehabilitative exercises provided. Pt expressed understanding and motivation to participate in HEP. Plan for pt to implement HEP and report back progress in the following session. Plan to complete EMST-75 form and advance effortful swallows if pt is consistent with exercises provided today. Continue targeting oropharyngeal dysphagia at a frequency of once a week given pt report and progress with HEP. Recommendations Liquids Order Thin (IDDSI 0) Diet Order Regular (IDDSI 7) Medication As Tolerated,Whole in Carrier,Crushed in Carrier Recommendations Additional Dietary No Straws Needs Aspiration Precautions Recommended Upright at 90 Degrees,Frequent Rest Periods,Small Bites Precautions /Sips,Effortful Swallow,Double Swallow,Check for Pocketing Treatment Plan Appropriate for Yes Continued Therapy Dysphagia Goals STG1. Patient will complete pharyngeal swallowing exercises as instructed by the UNDER PRESSER with the use of written supports and verbal cueing in order to improve swallow function and efficiency; including, but not limited to, effortful swallow, Michel, Chin Tuck Against Resistance (CTAR), Shaker, and supraglottic swallow to improve pharyngeal contraction. STG2. Patient will complete daily exercises as evidenced by patient report and/or HEP tracker in order to improve swallow function. STG3. Patient will use compensatory meal strategies with 90% accuracy to increase safety with PO intake per pt report. LTG1. Patient will safely tolerate least restrictive diet consistency to allow for safe consumption of daily meals without s/sx of aspiration. LTG2. Patient will improve self-perception of swallowing from a baseline of on the EAT-10 following participation in [facility] rehabilitative services.
--- NOTE | 2025-08-06 16:11 | ST.IPDYTX ---
Visit Care Team Role Provider Type Harshal Aleman MD Family Provider Physician Primary Care Provider Specialty: Family Practice Address: [address] [place], [place] [address], [place], [address] Email: Nahun Jacobs MD Attending Provider Physician Referring Provider Specialty: Pulmonology Address: [address] [place] [address] [address], [place], [address] Email: [email or web address] Dysphagia Treatment DEPARTMENT MGR Dysphagia Treatment Start: 07/23/25 17:52 Freq: Status: Active Protocol: Document 08/06/25 16:03 SS (Rec: 08/06/25 16:11 SS [email or web address]) Dysphagia Treatment Session Time Visit Start Time 14:30 Visit Stop Time 14:55 Total Visit Minutes 25 Visit Information Visit Number 3 Plan of Care Dates 07/23/25-10/22/25 Insurance Medicare (kx modifier after x19 visits) Information Setting Assessment Location Outpatient Care Visit Type Note Type Treatment Note Next Note Type Next Note Type Treatment Note Patient Information Identification Type Name Subjective Pt arrived to the session on time with her Observations granddaughter. Pt had NC in place for supplemental oxygen. She was engaged and motivated to participate in the session. Treatment Liquids Trialed Thin (IDDSI 0) Administration Type Cup Single Sip,Controlled Cup Sip,Self-Feeding Pharyngeal Double Swallow,Effortful Swallow Strategies Treatment Activities Continued rehabilitative exercises on this date to target oropharyngeal dysphagia, specifically effortful swallows. Reviewed HEP at end of session and provided handouts for improved understanding and recall. Completed form for EMST-75 Medicare coverage. The IDDSI Framework Protocol: IDDSI.1 Assessment Patient Response to Good Treatment Rehab Potential Fair Assessment of DEPARTMENT MGR facilitated discussion re: pt?s swallowing since Improvement the last session. Pt reported she has been cognizant of using recommended swallowing strategies. She was able to complete effortful swallows every other day. Encouraged pt to complete HEP twice a day, which she was agreeable to. Continued rehabilitative exercises on this date to target oropharyngeal dysphagia. Instructed pt in the Effortful Swallow to improve tongue to palate contact, base of tongue retraction, hyolaryngeal elevation and excursion, pharyngeal constriction, and opening of the upper esophageal sphincter for improved swallowing safety and efficiency . Provided education re: form and goal of the exercise for decreased pharyngeal residue and improved laryngeal vestibule closure. Bolus-driven effortful swallows completed with the following consistencies: Thin (about 5 ml): 4/4 successful swallows; average of 1-2 swallows per bolus. After 4 repetitions, pt?s oxygen dropped from mid 90 to mid 70 SpO2, which is abnormal for her. It took about 3-4 minutes for it to return to baseline. Attempted another repetition, though oxygen level dropped again. Discontinued exercise and stopped session early. Completed form for Medicare coverage of EMST-75 for increased cough strength and airway protection. Plan for pt to sign and submit next session. Additionally, called PCP re: repeat MBSS order, but unable to get through. Provided family with name of study to request and will re-attempt. Reviewed HEP at the conclusion of the session, with pt verbalizing understanding. HEP Recommendation: use safe swallowing strategies with intake, oral care TID (before and after meals), effortful swallow 30-50 reps with thin liquid and/or puree. Limited session today given reduced oxygen levels and pt expressed increased stridor with inhalation. Recommended pt and family bring this up to PCP, which they were agreeable to. Pt expressed understanding and motivation to participate in HEP. Plan for pt to implement HEP and report back progress in the following session. Continue targeting oropharyngeal dysphagia at a frequency of once a week given pt report and progress with HEP. Recommendations Liquids Order Thin (IDDSI 0) Diet Order Regular (IDDSI 7) Medication As Tolerated,Whole in Carrier,Crushed in Carrier Recommendations Additional Dietary No Straws Needs Aspiration Precautions Recommended Upright at 90 Degrees,Frequent Rest Periods,Small Bites Precautions /Sips,Effortful Swallow,Double Swallow,Check for Pocketing Treatment Plan Placement [facility] Recommendation after Discharge Appropriate for Yes Continued Therapy Dysphagia Goals STG1. Patient will complete pharyngeal swallowing exercises as instructed by the DEPARTMENT MGR with the use of written supports and verbal cueing in order to improve swallow function and efficiency; including, but not limited to, effortful swallow, Michel, Chin Tuck Against Resistance (CTAR), Shaker, and supraglottic swallow to improve pharyngeal contraction. STG2. Patient will complete daily exercises as evidenced by patient report and/or HEP tracker in order to improve swallow function. STG3. Patient will use compensatory meal strategies with 90% accuracy to increase safety with PO intake per pt report. LTG1. Patient will safely tolerate least restrictive diet consistency to allow for safe consumption of daily meals without s/sx of aspiration. LTG2. Patient will improve self-perception of swallowing from a baseline of on the EAT-10 following participation in [facility] rehabilitative services.
--- NOTE | 2025-08-13 16:09 | ST.IPDYTX ---
Visit Care Team Role Provider Type Harshal Aleman MD Family Provider Physician Primary Care Provider Specialty: Family Practice Address: [address] [place], [place] [address], [place], [address] Email: Nahun Jacobs MD Attending Provider Physician Referring Provider Specialty: Pulmonology Address: [address] [place] [address] [address], [place], [address] Email: [email or web address] LOG CUT OFF SAWYER Dysphagia Treatment LOG CUT OFF SAWYER Dysphagia Treatment Start: 07/23/25 17:52 Freq: Status: Active Protocol: Document 08/13/25 15:17 SS (Rec: 08/13/25 15:19 SS [email or web address]) Dysphagia Treatment Session Time Visit Start Time 13:45 Visit Stop Time 14:28 Total Visit Minutes 43 Visit Information Visit Number 4 Plan of Care Dates 07/23/25-10/22/25 Insurance Medicare (kx modifier after x19 visits) Information Setting Assessment Location Outpatient Care Visit Type Note Type Treatment Note Next Note Type Next Note Type Treatment Note Patient Information Identification Type Name Subjective Pt arrived to the session on time with her daughter and Observations granddaughter. Pt had NC in place for supplemental oxygen. She was engaged and motivated to participate in the session. Treatment Liquids Trialed Thin (IDDSI 0) Solids Trialed Purred (IDDSI 4) Administration Type Cup Single Sip,Controlled Cup Sip,Self-Feeding Pharyngeal Double Swallow,Effortful Swallow Strategies Treatment Activities Reviewed repeat MBSS results. Continued rehabilitative exercises on this date to target oropharyngeal dysphagia, specifically effortful swallows. Reviewed HEP at end of session and provided handouts for improved understanding and recall. Submitted form for [facility] Medicare coverage. The IDDSI Framework Protocol: IDDSI.1 Assessment Patient Response to Good Treatment Rehab Potential Fair Assessment of LOG CUT OFF SAWYER reviewed results from repeat MBSS. No change with Improvement oral phase function, but pt did demonstrate increased epiglottic movement. Additionally, while frequent penetration into the laryngeal vestibule was observed, no aspiration was observed across the study. Pt was able to independently utilize multiple swallows to clear pharyngeal residue. When she utilized effortful swallows, she demonstrated increased pharyngeal clearance. Recommendations were to continue current diet level and utilize multiple swallows and effortful swallows to increase swallowing safety and efficiency. Pt and family expressed understanding of education. Continued rehabilitative exercises on this date to target oropharyngeal dysphagia. Instructed pt in the Effortful Swallow to improve tongue to palate contact, base of tongue retraction, hyolaryngeal elevation and excursion, pharyngeal constriction, and opening of the upper esophageal sphincter for improved swallowing safety and efficiency . Provided education re: form and goal of the exercise for decreased pharyngeal residue and improved laryngeal vestibule closure. Bolus-driven effortful swallows completed with the following consistencies: Thin (small sips via cup): 10/11 successful swallows; average of 1-2 swallows per bolus. 1x immediate post- swallow weak cough. Encouraged pt to utilize strong cough to improve airway clearance. Given cueing, she was bale to produce subjectively stronger cough. Puree via tsp: 15/15 successful swallows; average of 2- 3 swallows per bolus. Pt was able to independently utilize multiple swallows to increase clearing of pharyngeal residue. Submitted form for Medicare coverage of EMST-75 for increased cough strength and airway protection. Will initiate use once pt receives the device. Reviewed HEP at the conclusion of the session, with pt verbalizing understanding. HEP Recommendation: use safe swallowing strategies with intake, oral care TID (before and after meals), effortful swallow 30-50 reps with thin liquid and/or puree. Pt is demonstrating some improvement with swallowing safety and efficiency as indicated during repeat MBSS, with no aspiration and reduced pharyngeal residue noted . Pt expressed understanding and motivation to participate in HEP. Plan for pt to implement HEP and report back progress in the following session. Plan to introduce CTAR next session as pt reported she completes effortful swallows at least twice a day. Continue targeting oropharyngeal dysphagia at a frequency of once a week given pt report and progress with HEP. Recommendations Liquids Order Thin (IDDSI 0) Diet Order Regular (IDDSI 7) Medication Whole in Carrier,Crushed in Carrier Recommendations Additional Dietary No Straws Needs Aspiration Precautions Recommended Upright at 90 Degrees,Frequent Rest Periods,Small Bites Precautions /Sips,Effortful Swallow,Double Swallow,Check for Pocketing Treatment Plan Placement [facility] Recommendation after Discharge Appropriate for Yes Continued Therapy Dysphagia Goals STG1. Patient will complete pharyngeal swallowing exercises as instructed by the LOG CUT OFF SAWYER with the use of written supports and verbal cueing in order to improve swallow function and efficiency; including, but not limited to, effortful swallow, Michel, Chin Tuck Against Resistance (CTAR), Shaker, and supraglottic swallow to improve pharyngeal contraction. STG2. Patient will complete daily exercises as evidenced by patient report and/or HEP tracker in order to improve swallow function. STG3. Patient will use compensatory meal strategies with 90% accuracy to increase safety with PO intake per pt report. LTG1. Patient will safely tolerate least restrictive diet consistency to allow for safe consumption of daily meals without s/sx of aspiration. LTG2. Patient will improve self-perception of swallowing from a baseline of on the EAT-10 following participation in [facility] rehabilitative services.
--- NOTE | 2025-08-20 12:56 | ST.IPDYTX ---
Visit Care Team Role Provider Type Harshal Aleman MD Family Provider Physician Primary Care Provider Specialty: Family Practice Address: [address] [place], [place] [address], [address] Email: Nahun Jacobs MD Attending Provider Physician Referring Provider Specialty: Pulmonology Address: [address] [place] [address] [address], [place], [address] Email: [email or web address] AWNING [email or web address] Dysphagia Treatment AWNING ERECTOR Dysphagia Treatment Start: 07/23/25 17:52 Freq: Status: Active Protocol: Document 08/20/25 12:47 SS (Rec: 08/20/25 12:56 SS [email or web address]) Dysphagia Treatment Session Time Visit Start Time 12:05 Visit Stop Time 12:42 Total Visit Minutes 37 Visit Information Visit Number 5 Plan of Care Dates 07/23/25-10/22/25 Insurance Medicare (kx modifier after x19 visits) Information Setting Assessment Location Outpatient Care Visit Type Note Type Treatment Note Next Note Type Next Note Type Treatment Note Patient Information Identification Type Name Subjective Pt arrived to the session on time with her daughter, Observations granddaughter, and son. Pt had NC in place for supplemental oxygen. She was engaged and motivated to participate in the session. Treatment Liquids Trialed Thin (IDDSI 0) Solids Trialed Purred (IDDSI 4),Soft & Bite-sized (IDDSI 6) Administration Type Cup Single Sip,Controlled Cup Sip,Self-Feeding Pharyngeal Double Swallow,Effortful Swallow Strategies Treatment Activities Continued rehabilitative exercises on this date to target oropharyngeal dysphagia, specifically effortful swallows. Advanced to soft and bite-sized texture. Reviewed HEP at end of session. The IDDSI Framework Protocol: IDDSI.1 Assessment Patient Response to Good Treatment Rehab Potential Fair Assessment of Facilitated discussion re: oral intake and HEP since Improvement the last session. Pt reported she has been consistently using multiple swallows with all PO intake and has noticed reduced sensation of pharyngeal residue. She has been competing her HEP sporadically throughout the day. Encouraged pt to complete all reps in one sitting to maximize benefits. Pt agreeable. Additionally, pt with intermittent wet vocal quality throughout the session, with and without intake. Encouraged pt to use a strong throat clear to clear mucous or residue likely contacting her vocal folds. Pt with clear vocal quality following TC, with material likely cleared. Continued rehabilitative exercises on this date to target oropharyngeal dysphagia. Instructed pt in the Effortful Swallow to improve tongue to palate contact, base of tongue retraction, hyolaryngeal elevation and excursion, pharyngeal constriction, and opening of the upper esophageal sphincter for improved swallowing safety and efficiency . Bolus-driven effortful swallows completed with the following consistencies: Thin (small sips via cup): 20/20 successful swallows; average of 1-2 swallows per bolus. Puree via tsp: 28/28 successful swallows; average of 2 swallows per bolus. Soft and bite-sized via tsp: 34/34 successful swallows; average of 2-3 swallows per bolus. Pt was again able to independently utilize multiple swallows to increase clearing of pharyngeal residue. Reviewed HEP at the conclusion of the session, with pt verbalizing understanding. HEP Recommendation: use safe swallowing strategies with intake, oral care TID (before and after meals), effortful swallow 30-50 reps with thin liquid, puree, and soft and bite-sized. Pt was motivated to participate today and has been implementing AWNING ERECTOR recommendations at home. Plan for pt to implement HEP daily and report back progress in the following session. AWNING ERECTOR reached out to [employer] to inquire about order status for EMST-75. Continue targeting oropharyngeal dysphagia at a frequency of once a week given pt report and progress with HEP. Recommendations Recommendations Continue Current Diet Liquids Order Thin (IDDSI 0) Diet Order Soft & Bite-sized (IDDSI 6) Medication Whole in Carrier,Crushed in Carrier Recommendations Additional Dietary No Straws Needs Aspiration Precautions Recommended Upright at 90 Degrees,Frequent Rest Periods,Small Bites Precautions /Sips,Effortful Swallow,Double Swallow,Check for Pocketing Treatment Plan Placement [facility] Recommendation after Discharge Appropriate for Yes Continued Therapy Dysphagia Goals STG1. Patient will complete pharyngeal swallowing exercises as instructed by the AWNING ERECTOR with the use of written supports and verbal cueing in order to improve swallow function and efficiency; including, but not limited to, effortful swallow, Michel, Chin Tuck Against Resistance (CTAR), Shaker, and supraglottic swallow to improve pharyngeal contraction. STG2. Patient will complete daily exercises as evidenced by patient report and/or HEP tracker in order to improve swallow function. STG3. Patient will use compensatory meal strategies with 90% accuracy to increase safety with PO intake per pt report. LTG1. Patient will safely tolerate least restrictive diet consistency to allow for safe consumption of daily meals without s/sx of aspiration. LTG2. Patient will improve self-perception of swallowing from a baseline of on the EAT-10 following participation in [facility] rehabilitative services.
--- NOTE | 2025-08-27 14:49 | ST.PROG ---
Visit Care Team Role Provider Type Harshal Aleman MD Family Provider Physician Primary Care Provider Address: [address] [place] [id number] Nahun Jacobs MD Attending Provider Physician Referring Provider Address: [address] [place] [address] [address] [address] Visit Care Team Role Provider Type Harshal Aleman MD Family Provider Physician Primary Care Provider Specialty: Family Practice Address: [address] [place] [address] Email: Nahun Jacobs MD Attending Provider Physician Referring Provider Specialty: Pulmonology Address: [address] [place] [address] [address] [address] Email: [email or web address] [email or web address] PORTFOLIO MANAGER Dysphagia Treatment CREDIT PORTFOLIO MANAGER Dysphagia Treatment Start: 07/23/25 17:52 Freq: Status: Active Protocol: Document 08/27/25 14:30 SS (Rec: 08/27/25 14:49 SS [email or web address]) Dysphagia Treatment Session Time Visit Start Time 13:45 Visit Stop Time 14:25 Total Visit Minutes 40 Visit Information Visit Number 6 Plan of Care Dates 07/23/25-10/22/25 Insurance Medicare (kx modifier after x19 visits) Information Setting Assessment Location Outpatient Care Visit Type Note Type Progress Note Next Note Type Next Note Type Treatment Note Patient Information Identification Type Name Subjective Pt arrived to the session on time with her Observations granddaughter. Pt had NC in place for supplemental oxygen. She was engaged and motivated to participate in the session. Treatment Solids Trialed Soft & Bite-sized (IDDSI 6) Administration Type Self-Feeding Pharyngeal Double Swallow,Effortful Swallow,Small Bites and Sips, Strategies Alternate Liquids/Solids Treatment Activities Continued rehabilitative exercises on this date to target oropharyngeal dysphagia, specifically effortful swallows with soft and bite-sized texture. Introduced Chin Tuck against Resistance. Reviewed HEP at end of session. Progress note completed today. The IDDSI Framework Protocol: IDDSI.1 Assessment Patient Response to Good Treatment Rehab Potential Fair Assessment of Facilitated discussion re: swallowing function and HEP Improvement since the last session. Pt reported she has been consistently using recommended strategies and has noticed reduced globus sensation and no coughing with intake. She has been completing effortful swallows with all intake which she finds very helpful. Clear vocal quality today. Continued rehabilitative exercises on this date to target oropharyngeal dysphagia. Instructed pt in the Effortful Swallow to improve tongue to palate contact, base of tongue retraction, hyolaryngeal elevation and excursion, pharyngeal constriction, and opening of the upper esophageal sphincter for improved swallowing safety and efficiency . Bolus-driven effortful swallows completed with the following consistencies: Soft and bite-sized via tsp: 37/37 successful swallows; average of 2-3 swallows per bolus. Pt was able to independently utilize multiple swallows to increase clearing of pharyngeal residue. No overt s/ sx of laryngeal penetration/aspiration. Introduced isometric and isokinetic Chin Tuck Against Resistance (CTAR) with the goal of strengthening suprahyoid and submental musculature for improved hyolaryngeal elevation and excursion. Provided education re: accurate form for completing the exercise . Provided pt with a ball to complete the exercises. Pt completed isometric CTAR for 10-seconds x 5 reps. Pt completed isokinetic CTAR 10 reps x 3 sets. One minute of rest completed between each set. Pt endorsed feeling appropriately challenged at the end of both exercises. She benefited from CREDIT PORTFOLIO MANAGER cueing, modeling, and verbal instruction during the task. Reviewed HEP at the conclusion of the session, with pt verbalizing understanding. Encouraged pt/family to reach out to [employer] to inquire about order status for EMST-75 as CREDIT PORTFOLIO MANAGER has not received a response yet. Pt has been seen for 5 treatment sessions since initiation of care. Treatment has included education re : normal swallow anatomy and physiology, the results of the MBSS, recommended safe swallow precautions to reduce the risk of aspiration. Additionally, it included rehabilitative exercises to target oropharyngeal dysphagia including Effortful Swallow. Completed form for EMST-75 targeting cough strength and airway protection and awaiting confirmation/shipment of device. Chin Tuck Against Resistance introduced today. Pt has benefited from education re: form and goal of exercises and CREDIT PORTFOLIO MANAGER cueing and modeling during exercises. Since the start of care, pt has improved in self- perception of swallowing. Pt also endorses reduced overt s/sx of aspiration during meals and decreased instances of solids sticking in her throat. This is consistent with results of repeat MBSS completed on demonstrating reduced aspiration risk (no laryngeal aspiration observed) and increased pharyngeal clearance with use of multiple swallows. Additionally, pt has been participating in HEP, although continues to require reinforcement to implement exercises daily. Pt continues to present with oropharyngeal dysphagia. She would benefit from continues speech therapy services at a frequency of 1x/week for 8-10 weeks to address oropharyngeal dysphagia, improve swallowing safety and efficiency, and improve overall quality of life. Prognosis for treatment continues to be good given pt motivation and progress made since initiation of care. Recommendations Recommendations Continue Current Diet Liquids Order Thin (IDDSI 0) Diet Order Soft & Bite-sized (IDDSI 6) Medication Whole in Carrier,Crushed in Carrier Recommendations Additional Dietary No Straws Needs Aspiration Precautions Recommended Upright at 90 Degrees,Frequent Rest Periods,Small Bites Precautions /Sips,Effortful Swallow,Double Swallow,Check for Pocketing Treatment Plan Placement [facility] Facility,[facility] Care Facility Recommendation after Discharge Appropriate for Yes Continued Therapy Therapy See above. Recommendations Dysphagia Goals STG1. Patient will complete pharyngeal swallowing exercises as instructed by the CREDIT PORTFOLIO MANAGER with the use of written supports and verbal cueing in order to improve swallow function and efficiency; including, but not limited to, effortful swallow, Michel, Chin Tuck Against Resistance (CTAR), Shaker, and supraglottic swallow to improve pharyngeal contraction. 08/27/25: Goal progressing. STG2. Patient will complete daily exercises as evidenced by patient report and/or HEP tracker in order to improve swallow function. 08/27/25: Goal progressing. STG3. Patient will use compensatory meal strategies with 90% accuracy to increase safety with PO intake per pt report. 08/27/25: Goal progressing. LTG1. Patient will safely tolerate least restrictive diet consistency to allow for safe consumption of daily meals without s/sx of aspiration. 08/27/25: Goal progressing. LTG2. Patient will improve self-perception of swallowing from a baseline of on the EAT-10 following participation in [facility] rehabilitative services. 08/27/25: Goal progressing.
--- NOTE | 2025-09-02 16:59 | ST.IPDYTX ---
Visit Care Team Role Provider Type Harshal Aleman MD Family Provider Physician Primary Care Provider Specialty: Family Practice Address: [address] [place], [place] [address], [place], [address] Email: Nahun Jacobs MD Attending Provider Physician Referring Provider Specialty: Pulmonology Address: [address] [place] [address] [address], [place], [address] Email: [email or web address] FISHING TOOL SUPERVISOR Dysphagia Treatment FISHING TOOL SUPERVISOR Dysphagia Treatment Start: 07/23/25 17:52 Freq: Status: Active Protocol: Document 09/02/25 16:51 SS (Rec: 09/02/25 16:59 SS [email or web address]) Dysphagia Treatment Session Time Visit Start Time 16:15 Visit Stop Time 16:45 Total Visit Minutes 30 Visit Information Visit Number 7 Plan of Care Dates 07/23/25-10/22/25 Insurance Medicare (kx modifier after x19 visits) Information Setting Assessment Location Outpatient Care Visit Type Note Type Treatment Note Next Note Type Next Note Type Treatment Note Patient Information Identification Type Name Subjective Pt arrived to the session on time with her Observations granddaughter. Pt had NC in place for supplemental oxygen. She was engaged and motivated to participate in the session. She reported she felt more fatigued than usual today, so session length was shorter. Treatment Liquids Trialed Thin (IDDSI 0) Solids Trialed Purred (IDDSI 4),Soft & Bite-sized (IDDSI 6) Administration Type Self-Feeding Pharyngeal Double Swallow,Effortful Swallow,Small Bites and Sips, Strategies Alternate Liquids/Solids Treatment Activities Continued rehabilitative exercises on this date to target oropharyngeal dysphagia, specifically effortful swallows with puree soft and bite-sized texture. Reviewed HEP at end of session. FISHING TOOL SUPERVISOR reached out to [employer] to inquire re: EMST75 progress and sent DME Prescription Form to pt's PCP as it has not been signed yet. The IDDSI Framework Protocol: IDDSI.1 Assessment Patient Response to Good Treatment Rehab Potential Fair Assessment of Facilitated discussion re: swallowing function and HEP Improvement since the last session. Pt reported she has been consistently and has been completing effortful swallows with most intake. She continues to notice minimal overt s/sx of laryngeal penetration/aspiration or sensation of laryngeal residue Continued rehabilitative exercises on this date to target oropharyngeal dysphagia. Instructed pt in the Effortful Swallow to improve tongue to palate contact, base of tongue retraction, hyolaryngeal elevation and excursion, pharyngeal constriction, and opening of the upper esophageal sphincter for improved swallowing safety and efficiency . Bolus-driven effortful swallows completed with the following consistencies: Thin via cup sip: 51/51 successful swallows; average of 2 swallows per bolus. Puree via tsp: 35/35 successful swallows; average of 2 swallows per bolus. Soft and bite-sized via tsp: 37/37 successful swallows; average of 2-3 swallows per bolus. Pt was able to independently utilize multiple swallows to increase clearing of pharyngeal residue. No overt s/ sx of laryngeal penetration/aspiration. Pt politely declined to participate in Chin Tuck Against Resistance (CTAR) stating that it was too fatiguing for her to complete two exercises. FISHING TOOL SUPERVISOR send DME prescription form to pt?s PCP per [employer] customer account manager who stated order has been received, but prescription has not been signed yet. Discussed reducing frequency of treatment to every other week as pt is now independently completing HEP daily. Pt will consider as it is very fatiguing for her to travel from her home, especially with her current oxygen needs. Continue current protocol at frequency of once a week given pt progress. Recommendations Recommendations Continue Current Diet Liquids Order Thin (IDDSI 0) Diet Order Soft & Bite-sized (IDDSI 6) Medication Whole in Carrier,Crushed in Carrier Recommendations Additional Dietary No Straws Needs Aspiration Precautions Recommended Upright at 90 Degrees,Frequent Rest Periods,Small Bites Precautions /Sips,Effortful Swallow,Double Swallow,Check for Pocketing Treatment Plan Placement [facility] Facility,[facility] Care Facility Recommendation after Discharge Appropriate for Yes Continued Therapy Therapy See above. Recommendations Dysphagia Goals STG1. Patient will complete pharyngeal swallowing exercises as instructed by the FISHING TOOL SUPERVISOR with the use of written supports and verbal cueing in order to improve swallow function and efficiency; including, but not limited to, effortful swallow, Michel, Chin Tuck Against Resistance (CTAR), Shaker, and supraglottic swallow to improve pharyngeal contraction. 08/27/25: Goal progressing. STG2. Patient will complete daily exercises as evidenced by patient report and/or HEP tracker in order to improve swallow function. 08/27/25: Goal progressing. STG3. Patient will use compensatory meal strategies with 90% accuracy to increase safety with PO intake per pt report. 08/27/25: Goal progressing. LTG1. Patient will safely tolerate least restrictive diet consistency to allow for safe consumption of daily meals without s/sx of aspiration. 08/27/25: Goal progressing. LTG2. Patient will improve self-perception of swallowing from a baseline of on the EAT-10 following participation in [facility] rehabilitative services. 08/27/25: Goal progressing.
--- NOTE | 2025-09-10 15:15 | ST.IPDYTX ---
Visit Care Team Role Provider Type Harshal Aleman MD Family Provider Physician Primary Care Provider Specialty: Family Practice Address: [address] [place], [place] [address], [address] Email: Nahun Jacobs MD Attending Provider Physician Referring Provider Specialty: Pulmonology Address: [address] [place] [address] [address], [address] Email: [email or web address] SONOGRAPHER Dysphagia Treatment CARDIOVASCULAR SONOGRAPHER Dysphagia Treatment Start: 07/23/25 17:52 Freq: Status: Active Protocol: Document 09/10/25 14:20 SS (Rec: 09/10/25 14:28 SS [email or web address]) Dysphagia Treatment Session Time Visit Start Time 13:45 Visit Stop Time 14:15 Total Visit Minutes 30 Visit Information Visit Number 8 Plan of Care Dates 07/23/25-10/22/25 Insurance Medicare (kx modifier after x19 visits) Information Setting Assessment Location Outpatient Care Visit Type Note Type Treatment Note Next Note Type Next Note Type Treatment Note Patient Information Identification Type Name Subjective Pt arrived to the session on time with her Observations granddaughter. Pt had NC in place for supplemental oxygen. She was engaged and motivated to participate in the session. She reported she has been more tired the past month or so and asked for shorter duration. Treatment Treatment Activities Reviewed safe swallowing strategies and recommended rehabilitative exercises on this date. Re-administered EAT-10. Discussed POC as pt expressed it conitnues to be difficult for her to leave her home and attend sessions in-person. The IDDSI Framework Protocol: IDDSI.1 Assessment Patient Response to Good Treatment Rehab Potential Fair Assessment of Facilitated discussion re: swallowing function and HEP Improvement since the last session. Pt reported she has been consistently completing effortful swallows with most of her intake. She denied overt s/sx of laryngeal penetration/aspiration or sensation of laryngeal residue over the past week. Pt stated it takes her a great deal of effort to attend in-person sessions, and would like to potentially discontinue services while continuing to implement strategies and exercises at home. CARDIOVASCULAR SONOGRAPHER in agreement with plan. Pt asked for POC to remain open until she can discuss this with family. CARDIOVASCULAR SONOGRAPHER reviewed recommended safe swallow precautions to reduce the risk of aspiration, including small bites/ sips, slow rate, alternating liquids and solids, upright positioning during PO intake, limiting distractions, and avoiding talking while eating. Reviewed rationale and form of recommended rehabilitative exercises, including the Effortful Swallow and Chin Tuck Against Resistance (CTAR). Pt verbalized understanding. Handouts provided to ensure recall of information. Pt has been seen for 8 speech therapy visits addressing oropharyngeal dysphagia in since the start of care. She has attended at a frequency of once a week and has been motivated and engaged throughout. Treatment included education re: normal swallowing anatomy and physiology, results of her MBSS, and training in safe swallow precautions to reduce the risk of aspiration. Additionally, treatment has included training in rehabilitative exercises to target oropharyngeal dysphagia including isometric and isokinetic Chin Tuck Against Resistance (CTAR) and the Effortful Swallow. CARDIOVASCULAR SONOGRAPHER has been attempting to obtain EMST-75, though insurance processing has been delayed. Pt has benefited from education re: form and goal of the exercises and CARDIOVASCULAR SONOGRAPHER cueing and modeling during the exercises. Since the start of care, pt has improved in self- perception of swallowing to a current perception of 4/ 40 (previously 8/40). Pt also endorses improvement in swallowing during meals, which is consistent with results of recent repeat MBSS (see full report). Pt has been diligent in daily HEP practice and plans to continue competing her HEP daily to maintain the gains she had made. The plan is to discharge the pt from speech therapy services as she has met her LTG and STG goals targeting dysphagia. Recommend she request a referral from her PCP if she notes changes with her swallowing, which pt was agreeable to. Recommendations Recommendations Continue Current Diet Liquids Order Thin (IDDSI 0) Diet Order Soft & Bite-sized (IDDSI 6) Medication Whole in Carrier,Crushed in Carrier Recommendations Additional Dietary No Straws Needs Aspiration Precautions Recommended Upright at 90 Degrees,Frequent Rest Periods,Small Bites Precautions /Sips,Effortful Swallow,Double Swallow,Check for Pocketing Treatment Plan Placement [facility] Recommendation after Discharge Appropriate for Yes Continued Therapy Therapy See above. Recommendations Dysphagia Goals STG1. Patient will complete pharyngeal swallowing exercises as instructed by the CARDIOVASCULAR SONOGRAPHER with the use of written supports and verbal cueing in order to improve swallow function and efficiency; including, but not limited to, effortful swallow, Michel, Chin Tuck Against Resistance (CTAR), Shaker, and supraglottic swallow to improve pharyngeal contraction. 08/27/25: Goal progressing. 09/10/25: Goal met. STG2. Patient will complete daily exercises as evidenced by patient report and/or HEP tracker in order to improve swallow function. 08/27/25: Goal progressing. 09/10/25: Goal met. STG3. Patient will use compensatory meal strategies with 90% accuracy to increase safety with PO intake per pt report. 08/27/25: Goal progressing. 09/10/25: Goal met. LTG1. Patient will safely tolerate least restrictive diet consistency to allow for safe consumption of daily meals without s/sx of aspiration. 08/27/25: Goal progressing. 09/10/25: Goal met. LTG2. Patient will improve self-perception of swallowing from a baseline of on the EAT-10 following participation in [facility] rehabilitative services. 08/27/25: Goal progressing. 09/10/25: Goal met.
--- NOTE | 2025-10-06 15:44 | ST.OPDC.SWTH ---
Visit Care Team Role Provider Type Harshal Aleman MD Family Provider Physician Primary Care Provider Specialty: Family Practice Address: [address] [place], [place] [address], [address] Email: Nauhn Jacobs MD Attending Provider Physician Referring Provider Specialty: Pulmonology Address: [address] [place] [address] [id number], [address] Email: [email or web address] Dysphagia Treatment [employer] Dysphagia Treatment Start: 07/23/25 17:52 Freq: Status: Active Protocol: Document 09/10/25 14:20 SS (Rec: 09/10/25 14:28 SS [email or web address]) Dysphagia Treatment Session Time Visit Start Time 13:45 Visit Stop Time 14:15 Total Visit Minutes 30 Visit Information Visit Number 8 Plan of Care Dates 07/23/25-10/22/25 Insurance Medicare (kx modifier after x19 visits) Information Setting Assessment Location Outpatient Care Visit Type Note Type Treatment Note Next Note Type Next Note Type Treatment Note Patient Information Identification Type Name Subjective Pt arrived to the session on time with her Observations granddaughter. Pt had NC in place for supplemental oxygen. She was engaged and motivated to participate in the session. She reported she has been more tired the past month or so and asked for shorter duration. Treatment Treatment Activities Reviewed safe swallowing strategies and recommended rehabilitative exercises on this date. Re-administered EAT-10. Discussed POC as pt expressed it conitnues to be difficult for her to leave her home and attend sessions in-person. The IDDSI Framework Protocol: IDDSI.1 Assessment Patient Response to Good Treatment Rehab Potential Fair Assessment of Facilitated discussion re: swallowing function and HEP Improvement since the last session. Pt reported she has been consistently completing effortful swallows with most of her intake. She denied overt s/sx of laryngeal penetration/aspiration or sensation of laryngeal residue over the past week. Pt stated it takes her a great deal of effort to attend in-person sessions, and would like to potentially discontinue services while continuing to implement strategies and exercises at home. EM[employer]OYMENT INSTRUCTIONAL ASSOCIATE in agreement with plan. Pt asked for POC to remain open until she can discuss this with family. EM[employer]MENT INSTRUCTIONAL ASSOCIATE reviewed recommended safe swallow precautions to reduce the risk of aspiration, including small bites/ sips, slow rate, alternating liquids and solids, upright positioning during PO intake, limiting distractions, and avoiding talking while eating. Reviewed rationale and form of recommended rehabilitative exercises, including the Effortful Swallow and Chin Tuck Against Resistance (CTAR). Pt verbalized understanding. Handouts provided to ensure recall of information. Pt has been seen for 8 speech therapy visits addressing oropharyngeal dysphagia in since the start of care. She has attended at a frequency of once a week and has been motivated and engaged throughout. Treatment included education re: normal swallowing anatomy and physiology, results of her MBSS, and training in safe swallow precautions to reduce the risk of aspiration. Additionally, treatment has included training in rehabilitative exercises to target oropharyngeal dysphagia including isometric and isokinetic Chin Tuck Against Resistance (CTAR) and the Effortful Swallow. EMPLOYMENT INSTRUCTIONAL ASSOCIATE has been attempting to obtain EMST-75, though insurance processing has been delayed. Pt has benefited from education re: form and goal of the exercises and EM[employer]OYMENT INSTRUCTIONAL ASSOCIATE cueing and modeling during the exercises. Since the start of care, pt has improved in self- perception of swallowing to a current perception of 4/ 40 (previously 8/40). Pt also endorses improvement in swallowing during meals, which is consistent with results of recent repeat MBSS (see full report). Pt has been diligent in daily HEP practice and plans to continue competing her HEP daily to maintain the gains she had made. The plan is to discharge the pt from speech therapy services as she has met her LTG and STG goals targeting dysphagia. Recommend she request a referral from her PCP if she notes changes with her swallowing, which pt was agreeable to. * EM[employer]OYMENT INSTRUCTIONAL ASSOCIATE called pt's daughter to follow up on whether pt would like to continue services. Pt is currently seeing a home health [employer]OY[employer] INSTRUCTIONAL [employer]OCIATE following her hospitalization and is using EMST-75 device that had arrived. Pt's daughter is aware that pt may request new order from PCP and resume services as needed in the future. Pt account discharged at this time.* Recommendations Recommendations Continue Current Diet Liquids Order Thin (IDDSI 0) Diet Order Soft & Bite-sized (IDDSI 6) Medication Whole in Carrier,Crushed in Carrier Recommendations Additional Dietary No Straws Needs Aspiration Precautions Recommended Upright at 90 Degrees,Frequent Rest Periods,Small Bites Precautions /Sips,Effortful Swallow,Double Swallow,Check for Pocketing Treatment Plan Placement [facility] Recommendation after Discharge Appropriate for Yes Continued Therapy Therapy See above. Recommendations Dysphagia Goals STG1. Patient will complete pharyngeal swallowing exercises as instructed by the EMPLOYMENT INSTRUCTIONAL ASSOCIATE with the use of written supports and verbal cueing in order to improve swallow function and efficiency; including, but not limited to, effortful swallow, Michel, Chin Tuck Against Resistance (CTAR), Shaker, and supraglottic swallow to improve pharyngeal contraction. 08/27/25: Goal progressing. 09/10/25: Goal met. STG2. Patient will complete daily exercises as evidenced by patient report and/or HEP tracker in order to improve swallow function. 08/27/25: Goal progressing. 09/10/25: Goal met. STG3. Patient will use compensatory meal strategies with 90% accuracy to increase safety with PO intake per pt report. 08/27/25: Goal progressing. 09/10/25: Goal met. LTG1. Patient will safely tolerate least restrictive diet consistency to allow for safe consumption of daily meals without s/sx of aspiration. 08/27/25: Goal progressing. 09/10/25: Goal met. LTG2. Patient will improve self-perception of swallowing from a baseline of on the EAT-10 following participation in [facility] rehabilitative services. 08/27/25: Goal progressing. 09/10/25: Goal met.
== END 2025-10-07 11:12 | disposition home or self-care (01) ==
LOC: SP 13:45
PROVIDERS: Family Provider Family Medicine; PCP Family Medicine; Referring Provider Internal Medicine; Visit Provider Internal Medicine
DX: R13.12 Dysphagia, oropharyngeal phase (principal); J15.69 Pneumonia due to other Gram-negative bacteria
CPT/HCPCS: 92526; 92610

== ENCOUNTER 2025-09-14 16:56 | Inpatient (IN) | payer MEDICARE, OTHER, SELFPAY ==
[2025-08-25 13:23] VITALS: BMI 19.5
[2025-09-14] VITALS (19 sets, daily range): BP systolic 99–133; BP diastolic 55–64; PULSE 54–65; RESP 13–27; TEMP 36.7; O2SAT 90–98; BMI 19.5; BMI 20.8
--- NOTE | 2025-09-14 17:18 | DI.RAD.S_ITS ---
PROCEDURE: XR CHEST 1V INDICATIONS: Chest Pain TECHNIQUE: One view of the chest was acquired. COMPARISON: [facility], CR, XR CHEST 1V, 06/29/2025, 15:58. [facility], CR, XR CHEST 2V, 04/14/2025, 7:20. FINDINGS: Surgical changes and devices: None. Lungs and pleura: Interval increase of bilateral hilar fullness with new patchy left airspace opacities. Left greater than right costophrenic angle blunting suggestive of small pleural effusions. No pneumothorax. Mediastinum: Mediastinal contours appear normal. Similar prominence of the heart on portable imaging. Bones and chest wall: No suspicious bony lesions. Overlying soft tissues appear unremarkable. IMPRESSION: Interval worsening of bilateral hilar fullness and left greater than right patchy airspace opacities with suggestion of small left greater than right pleural effusions, which is concerning for an infectious or inflammatory. Dictated by: Ciro Hanks M.D. on 09/14/2025 at 18:36 Approved by: Ciro Hanks M.D. on 09/14/2025 at 18:40
[2025-09-14 18:17] LABS: Base Excess VBG 4.7 mmol/L (0-4); HCO3 VBG 30 mmol/L (24-28); Oxygen Saturation VBG 76 % (70-75); PCO2 VBG 46.1 mmHg (45-50); PO2 VBG 41 mmHg (35-45); Total CO2 VBG 29 mmol/L (24-29); pH VBG 7.42 (7.33-7.43)
--- NOTE | 2025-09-14 18:39 | ED.SOB ---
HPI - SOB/Dyspnea General Chief Complaint: Weakness Stated Complaint: Couch x 3 days Time Seen by Provider: 09/14/25 18:29 Source: family and EMS Mode of arrival: Family Vehicle Limitations: no limitations History of Present Illness HPI Narrative: This 89-year-old female with a history of COPD respiratory failure CHF who presents to the emergency room with 2-3 days of increasing shortness of breath with a nonproductive cough of dark green sputum. Patient denied any fever and hemoptysis any orthopnea or pedal edema. Emergency department patient is able to speak in full sentences. Related Data Home Medications ?Medication ?Instructions ?Recorded ?Confirmed mirtazapine 15 mg tablet (Remeron) 15 mg PO BEDTIME 07/12/23 08/27/25 amlodipine 5 mg tablet (Norvasc) 5 mg PO 2XD 06/27/24 08/27/25 mv-mn-folic 200 mcg-vit K 15 2 cap PO DAILY 06/27/24 08/27/25 mcg-lutein 5 mg-zeaxanthin 1 mg capsule (PreserVision AREDS 2 Plus Multivit) lorazepam 0.5 mg tablet (Ativan) 0.5 mg PO BEDTIME PRN Sleep 06/28/24 08/27/25 carvedilol 25 mg tablet 25 mg PO BID 02/10/25 08/27/25 candesartan 16 mg tablet 16 mg PO DAILY 02/20/25 08/27/25 hydralazine 25 mg tablet 50 mg PO BEDTIME 07/13/25 08/27/25 acetazolamide 125 mg tablet 125 mg PO DAILY 08/27/25 08/27/25 Previous Rx's ?Medication ?Instructions ?Recorded furosemide 40 mg tablet 40 mg PO DAILY #30 tabs 06/29/25 Supplemental oxygen 2 - 4 l inhalation DAILY #1 ea 08/21/25 Oxygen #1 ea 08/27/25 Allergies Allergy/AdvReac Type Severity Reaction Status Date / Time levofloxacin Allergy Intermediate Rash Verified 09/14/25 17:09 amoxicillin (From Augmentin) AdvReac stomach Verified 09/14/25 17:09 ache clavulanic acid (From AdvReac stomach Verified 09/14/25 17:09 Augmentin) ache Review of Systems Review of Systems Narrative: GENERAL: Denies chills, fatigue, malaise, fever, sweats. HEENT: Denies sinus pain, ear pain, sore throat, difficulty swallowing, dizziness. RESPIRATORY: See HPI CARDIOVASCULAR: Denies chest pain, palpitations, orthopnea, edema, GASTROINTESTINAL: Denies nausea, vomiting, abdominal pain, diarrhea, constipation, melena. : Denies dysuria, frequency, incontinence, hematuria, urinary retention. MUSCULOSKELETAL: denies weakness, joint pain, or bony pain SKIN: Denies rash, skin lesions, or other NEUROLOGIC: Denies weakness, headache, numbness, change in speech, confusion, seizures, incoordination. PSYCHIATRIC: No concerning psychosocial issues. 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 Hypertension (~2018) MGUS (monoclonal gammopathy of unknown significance) COPD (chronic obstructive pulmonary disease) CKD (chronic kidney disease) stage 3, GFR 30-59 ml/min Surgical History Anesthesia History of colonoscopy (~2006) History of section History of nasal septoplasty (~2015) History of hysterectomy (~1981) History of exploratory laparotomy (~1984) Family History Father COPD (chronic obstructive pulmonary disease) Mother Cancer Sister Diabetes mellitus Grandfather Stroke Grandmother History of heart disease Grandfather History of heart disease Grandmother History of heart disease Social History household members: children Smoking Status: Never smoker alcohol intake: never Smoking Status: Never smoker alcohol intake frequency: holidays/special occasions only Exam Narrative Exam Narrative: GENERAL: [] year old patient appears stated age. Well-developed patient, in mild distress. HEAD: Atraumatic. Normocephalic. EYES: Pupils equal round and reactive. Extraocular motions intact. No scleral icterus. No injection or drainage. ENT: Nose without bleeding, purulent drainage. Throat without erythema, tonsillar hypertrophy or exudate. Airway patent. NECK: Trachea midline. Non tender CARDIOVASCULAR: Regular rate and rhythm without murmurs, gallops, or rubs. RESPIRATORY: Lungs with diminished breath sounds GASTROINTESTINAL: Abdomen soft, non-tender, nondistended. EXTREMITIES: No edema or joint tenderness. BACK: Nontender without deformity or crepitance. No flank tenderness. NEURO: AOx3. SKIN: No rash or erythema of visible areas Initial Vital Signs Initial Vital Signs: Vital Signs Temperature 98.0 F 09/14/25 17:09 Pulse Rate 61 09/14/25 17:09 Respiratory Rate 22 09/14/25 17:09 Blood Pressure 131/62 09/14/25 17:09 Pulse Oximetry 96 09/14/25 17:09 Oxygen Delivery Method Room Air 09/14/25 17:09 Course Orders Ordered: ED Orders 09/14/25 17:17 Urinalysis and Microscopic Stat 09/14/25 17:18 XR chest 1V Stat EKG-12 Lead Stat 09/14/25 18:08 Complete Blood Count AUTO DIFF Stat Comprehensive Metabolic Panel Stat Lactate (Lactic Acid) Stat Lipase Stat Magnesium Stat NT-proBNP (BNP-Adult 18+) Stat PTT Partial Thromboplastin Jay Stat Prothrombin Time INR Stat Troponin & CK Cardiac Panel Stat 09/14/25 18:12 Venous Blood Gas Routine 09/14/25 18:37 Blood Culture Stat 09/14/25 18:41 Covid-19 + FLU A/B + RSV - PCR Stat 09/14/25 19:58 CT chest wo con Stat 09/14/25 21:00 Packed Cells Stat Type and Screen Stat Discontinued Medications Albuterol/Ipratropium (Albuterol/Ipratropium 3 Ml Ampul) 3 ml INH NOW ONE Stop: 09/14/25 18:37 Last Admin: 09/14/25 19:12 Dose: 3 ml Documented By: CHETAN Aspirin (Aspirin 81 Mg Chew Tab) 324 mg PO NOW ONE Stop: 09/14/25 17:18 Last Admin: 09/14/25 18:32 Dose: Not Given Documented By: ELODIA Benzocaine (Benzocaine/Menthol 1 [place] Pkt) 1 each PO NOW ONE Stop: 09/14/25 18:47 Last Admin: 09/14/25 19:00 Dose: Not Given Documented By: CHETAN Dexamethasone (Dexamethasone 10 Mg/Ml Vial) 10 mg IV NOW ONE Stop: 09/14/25 18:37 Last Admin: 09/14/25 19:13 Dose: 10 mg Documented By: CHETAN Ceftriaxone Sodium 1,000 mg/ (Sodium Chloride) 100 mls @ 200 mls/hr IV NOW ONE Stop: 09/14/25 21:02 Azithromycin 500 mg/ Dextrose 250 mls @ 250 mls/hr IV NOW ONE Stop: 09/14/25 21:02 Vital Signs Vital signs: Vital Signs - 8 hr 09/14/25 17:09 09/14/25 17:53 09/14/25 17:54 Temperature 98.0 F Pulse Rate 61 61 Respiratory Rate 22 Blood Pressure 131/62 128/60 Pulse Oximetry 96 92 Oxygen Delivery Method Room Air 09/14/25 18:00 09/14/25 18:00 09/14/25 18:30 Temperature Pulse Rate 61 59 L Respiratory Rate Blood Pressure 129/60 Pulse Oximetry 97 95 Oxygen Delivery Method 09/14/25 18:31 09/14/25 18:31 09/14/25 19:00 Temperature Pulse Rate 60 Respiratory Rate Blood Pressure 116/56 L 133/64 Pulse Oximetry 93 Oxygen Delivery Method 09/14/25 19:00 Temperature Pulse Rate 61 Respiratory Rate 20 Blood Pressure Pulse Oximetry 90 L Oxygen Delivery Method MDM - SOB/Dyspnea Lab Data 09/14/25 18:08 09/14/25 18:08 Labs: Lab Results 09/14/25 09/14/25 09/14/25 Range/Units 18:08 18:12 18:41 WBC 12.6 H (4.5-11.0) X10^3/uL RBC 2.14 L (4.0-5.2) X10^6/uL Hgb 6.8 L* (12.0-16.0) g/dL Hct 19.6 L* (36-46) % MCV 91.6 (80-100) fL MCH 31.7 (26-34) PG MCHC 34.6 (30-36) % RDW 15.1 H (11.6-14.8) % Plt Count 424 H (150-400) X10^3/uL Neut % (Auto) 90.3 H (50-75) % Lymph % (Auto) 3.7 L (25-40) % [place] % (Auto) 4.9 (3-14) % Eos % (Auto) 0.6 L (2-4) % Baso % (Auto) 0.5 (0-2) % Neut # (Auto) 63081 H (1111-5381) /uL Lymph # (Auto) 500 L (8726-6527) /uL [place] # (Auto) 600 (0-900) /uL Eos # (Auto) 100 (0-450) /uL Baso # (Auto) 100 (0-100) /uL RBC Morphology See below Anisocytosis 1+ H PT 10.0 (9.4-12.5) SECONDS INR 0.9 (0.9-1.3) APTT 29 (25.1-36.5) SECONDS VBG pH 7.42 (7.33-7.43) VBG pCO2 46.1 (45-50) mmHg VBG pO2 41 (35-45) mmHg VBG HCO3 30 H (24-28) mmol/L VBG Total CO2 29 (24-29) mmol/L VBG O2 Saturation 76 H (70-75) % VBG Base Excess 4.7 H (0-4) mmol/L Sodium 122 L (137-145) mmol/L Potassium 4.1 (3.4-5.1) mmol/L Chloride 83 L (98-107) mmol/L Carbon Dioxide 33 H (22-32) mmol/L BUN 45 H (7-17) mg/dL Creatinine 2.35 H (0.52-1.04) mg/dL Estimated GFR 19 L (>60) mL/min BUN/Creatinine Ratio 19.1 (6-22) Glucose 112 H (70-99) mg/dL Lactate 0.6 L (0.7-2.1) mmol/L Calcium 8.3 L (8.4-10.2) mg/dL Magnesium 2.5 H (1.6-2.3) mg/dL Total Bilirubin 0.2 (0.2-1.3) mg/dL AST 22 (14-36) IU/L ALT 5 (<35) IU/L Alkaline Phosphatase 101 (38-126) U/L Total Creatine Kinase < 20 L (30-135) U/L Troponin I 0.013 (0.01-0.034) ng/mL NT-Pro-B Natriuret Pep 79278 H (<450) pg/mL Total Protein 7.0 (6.3-8.2) g/dL Albumin 3.6 (3.5-5.0) g/dL Globulin 3.4 (1.7-4.1) g/dL Albumin/Globulin Ratio 1.1 (1.0-2.8) Lipase 58 (23-300) U/L SARS-CoV-2 (PCR) Negative (Negative) Influenza A (RT-PCR) Flu a negative (NEGATIVE) Influenza B (RT-PCR) Flu b negative (NEGATIVE) RSV (PCR) Negative (Negative) MDM Narrative Medical decision making narrative: Patient had a 12 lead EKG reveals sinus rhythm with nonspecific STT wave changes patient had a chest x-ray read by the radiologist as interstitial changes. Patient had a CT of the chest read by the radiologist as multifocal bronchopneumonia and also superimposed moderate pulmonary edema with small pleural effusions. Patient had a CBC remarkable for a white count of 12.6 and hemoglobin 6.8 kg in the chemistry remarkable for a sodium of 122 [place] was [id number] lactic acid was normal troponin was negative COVID and flu were negative. In the emergency department the patient was given a bolus of fluid. When I got back results of the test patient was given Rocephin and Zithromax for community-acquired pneumonia patient also received a DuoNeb treatment and IV dexamethasone. I will also give the patient 40 of IV Lasix for her underlying CHF. Patient is typed and crossed for 1 unit of packed red blood cells. At this point the patient will need to be admitted to the hospital for further evaluation and treatment I will speak to the hospitalist to admit the patient differential diagnosis pneumonia CHF pleural effusion Discharge Plan Departure Patient Disposition: Admitted as Observation Clinical Impression: Multifocal pneumonia, CHF exacerbation, Symptomatic anemia, Hyponatremia
[2025-09-14 18:50] LABS: INR 0.9 (0.9-1.3); Prothrombin Time 10.0 SECONDS (9.4-12.5)
[2025-09-14 18:53] LABS: PTT Partial Thromboplastin Tim 29 SECONDS (25.1-36.5)
[2025-09-14 18:54] LABS: Alanine Aminotransferase 5 IU/L (<35); Albumin 3.6 g/dL (3.5-5.0); Albumin Globulin Ratio 1.1 (1.0-2.8); Alkaline Phosphatase 101 U/L (38-126); Blood Urea Nitrogen 45 mg/dL (7-17); Calcium 8.3 mg/dL (8.4-10.2); Carbon Dioxide 33 mmol/L (22-32); Chloride 83 mmol/L (98-107); Creatine Kinase < 20 U/L (30-135); Estimated Glomerular Filt Rate 19 mL/min (>60); Globulin 3.4 g/dL (1.7-4.1); Glucose 112 mg/dL (70-99); HEMOLYSIS 17 (0-50); Lactate (Lactic Acid) 0.6 mmol/L (0.7-2.1); Lipase 58 U/L (23-300); Magnesium 2.5 mg/dL (1.6-2.3); Potassium 4.1 mmol/L (3.4-5.1); Sodium 122 mmol/L (137-145); Total Protein 7.0 g/dL (6.3-8.2)
[2025-09-14 18:55] LABS: Lymphocytes Absolute Auto 500 /uL (1100-4500); Mean Corpuscular HGB Conc 34.6 % (30-36); Mean Corpuscular Hemoglobin 31.7 PG (26-34); Mean Corpuscular Volume 91.6 fL (80-100); Platelet Count 424 X10^3/uL (150-400)
[2025-09-14 19:06] LABS: NT-proBNP (BNP-Adult 18+) 10300 pg/mL (<450); Troponin I 0.013 ng/mL (0.01-0.034)
[2025-09-14 19:09] LABS: Add Manual Diff / Slide Review SLIDE REVIEW
[2025-09-14 19:10] LABS: Hematocrit 19.6 % (36-46); Hemoglobin 6.8 g/dL (12.0-16.0)
[2025-09-14 19:11] LABS: Anisocytosis 1+
[2025-09-14] MEDS: ALBUTEROL/IPRATROPIUM 3 ML AMPUL INH ×2 (19:12→23:35)
[2025-09-14 19:29] LABS: Influenza A - CEPHEID Flu A NEGATIVE (NEGATIVE); Influenza B - CEPHEID Flu B NEGATIVE (NEGATIVE)
[2025-09-14 19:38] LABS: COVID-19 CEPHEID 4-PLEX PCR Negative (Negative)
--- NOTE | 2025-09-14 19:58 | DI.CT.S_ITS ---
PROCEDURE: CT CHEST WO CON INDICATIONS: pneumonia vs effusion TECHNIQUE: Noncontrast 5 mm thick sections acquired from the pulmonary apices to the posterior costophrenic angles. 1 mm lung window, 5 mm thick coronal and sagittal and 7 mm axial MIP reformats were then acquired. For radiation dose reduction, the following was used: automated exposure control, adjustment of mA and/or kV according to patient size. COMPARISON: [facility], CT, CT ANGIO CHEST PE PROTOCOL, 06/29/2025, 16:23. [facility], CR, XR CHEST 1V, 06/29/2025, 15:58. [facility], CR, XR CHEST 1V, 09/14/2025, 17:32. [facility], CT, CT CHEST WO CON, 02/24/2025, 9:38. FINDINGS: Image quality: Diagnostic. Lower Neck: No enlarged lymph nodes. Thyroid: No thyroid nodules which require sonographic follow up, per consensus guidelines. Axillae: No enlarged lymph nodes. Chest Wall: Unremarkable. Bones: Unremarkable. Lungs and Pleura: There is smooth interstitial thickening with central bronchial thickening. Superimposed multifocal consolidation, with tree-in-bud nodules and centrilobular nodules. This is in a non dependent distribution. Small pleural effusions. Heart: Heart size is enlarged. No pericardial effusion. Thoracic Vessels: The aorta and pulmonary arteries demonstrate normal size. Mediastinum and Dawn: No enlarged lymph nodes. Esophagus: No wall thickening. Moderate hiatal hernia. Upper Abdomen: Visualized upper abdomen solid organs and bowel loops appear normal. IMPRESSION: Multifocal bronchopneumonia. Differential includes aspiration pneumonia, but is less likely given the non dependent distribution. Superimposed moderate pulmonary edema and small pleural effusions. Dictated by: Irineo Mcginnis M.D. on 09/14/2025 at 20:34 Approved by: Irineo Mcginnis M.D. on 09/14/2025 at 20:36
--- NOTE | 2025-09-14 21:28 | PC.NURSE ---
Assumed pt care from MEGAN Dahl. pt a/ox4, ABC's intact on 2L nasal cannula, pt on cardiac technologist, updated on POC, pt agreeable to blood transfusion, call light within reach
[2025-09-14] MEDS: FUROSEMIDE 40 MG/4 ML VIAL IV (21:38)
[2025-09-14] MEDS: AZITHROMYCIN 500 MG in DEXTROSE 5% IN WATER 250 ML 250 MG IV (21:50)
[2025-09-14 22:20] LABS: Appearance Urine UA CLEAR; Bilirubin Urine UA NEGATIVE (NEGATIVE); Color Urine UA YELLOW; Glucose Urine UA NEGATIVE (Negative); Ketones Urine UA NEGATIVE (NEGATIVE); Leukocyte Esterase Urine UA NEGATIVE (NEGATIVE); Nitrite Urine UA NEGATIVE (Negative); Occult Blood Urine UA NEGATIVE (Negative); Protein Urine UA NEGATIVE (Negative); Specific Gravity Urine UA 1.010 (1.000-1.035); Urobilinogen Urine UA 0.2 E.U./dL (0.2)
[2025-09-14 22:21] LABS: pH Urine UA 6.0 (4.5-8.0)
[2025-09-15] VITALS (36 sets, daily range): BP systolic 101–150; BP diastolic 52–68; PULSE 53–92; RESP 13–24; TEMP 36.7–36.9; O2SAT 93–99
[2025-09-15 00:28] LABS: Culture Indicated Urine Cult Not Indicated
--- NOTE | 2025-09-15 01:31 | PC.NURSE ---
pt tolerating blood transfusion
[2025-09-15] MEDS: FUROSEMIDE 40 MG/4 ML VIAL IV ×3 (04:39→21:16)
[2025-09-15 05:26] LABS: Add Manual Diff / Slide Review NO; Hematocrit 25.1 % (36-46); Hemoglobin 8.8 g/dL (12.0-16.0); Lymphocytes Absolute Auto 200 /uL (1100-4500); Mean Corpuscular HGB Conc 35.2 % (30-36); Mean Corpuscular Hemoglobin 31.7 PG (26-34); Mean Corpuscular Volume 90.1 fL (80-100); Platelet Count 391 X10^3/uL (150-400)
[2025-09-15 05:51] LABS: Blood Urea Nitrogen 42 mg/dL (7-17); Calcium 8.4 mg/dL (8.4-10.2); Carbon Dioxide 33 mmol/L (22-32); Chloride 86 mmol/L (98-107); Estimated Glomerular Filt Rate 21 mL/min (>60); Glucose 121 mg/dL (70-99); HEMOLYSIS < 15 (0-50); Potassium 4.0 mmol/L (3.4-5.1); Sodium 124 mmol/L (137-145)
--- NOTE | 2025-09-15 06:27 | PM.HP.1 ---
History of Present Illness History of Present Illness Date Patient Seen: 09/14/25 Time Patient Seen: 23:15 Chief complaint: Cough x 3 days Narrative: 89-year-old female medical history of MDS, chronic anemia COPD not oxygen dependent, CHF, hypertension, presents with complaint of shortness of breath. Per the patient report, over the last 2 to 3 days, the patient has been having increased shortness of breath and a productive cough with some greenish sputum. The patient also has increasing wheezing and lower extreme edema. The patient however denies any fever, chills, nausea, vomiting, diarrhea, chest p productive cough ain or syncope. In the emergency room, the patient was hemodynamically stable but was requiring 1 to 2 L oxygen per nasal cannula. Labs shows a WBC of 12.6 hemoglobin 6.8 sodium 122 creatinine 2.35 BNP of 10,300 troponin 0.01. Influenza and COVID RSV are negative. The patient was given IV Lasix along with 1 unit of packed red blood cells. IV dexamethasone milligram as well as DuoNebs were given. Rocephin and azithromycin given. 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 Hypertension (~2018) MGUS (monoclonal gammopathy of unknown significance) COPD (chronic obstructive pulmonary disease) CKD (chronic kidney disease) stage 3, GFR 30-59 ml/min Surgical History Anesthesia History of colonoscopy (~2006) History of section History of nasal septoplasty (~2015) History of hysterectomy (~1981) History of exploratory laparotomy (~1984) Family History Father COPD (chronic obstructive pulmonary disease) Mother Cancer Sister Diabetes mellitus Grandfather Stroke Grandmother History of heart disease Grandfather History of heart disease Grandmother History of heart disease Social History household members: children Smoking Status: Never smoker alcohol intake: never Meds Home Medications and Allergies Home Medications ?Medication ?Instructions ?Recorded ?Confirmed ?Type mirtazapine 15 mg tablet (Remeron) 15 mg PO BEDTIME 07/12/23 08/27/25 History amlodipine 5 mg tablet (Norvasc) 5 mg PO 2XD 06/27/24 08/27/25 History mv-mn-folic 200 mcg-vit K 15 2 cap PO DAILY 06/27/24 08/27/25 History mcg-lutein 5 mg-zeaxanthin 1 mg capsule (PreserVision AREDS 2 Plus Multivit) lorazepam 0.5 mg tablet (Ativan) 0.5 mg PO BEDTIME PRN Sleep 06/28/24 08/27/25 History carvedilol 25 mg tablet 25 mg PO BID 02/10/25 08/27/25 History candesartan 16 mg tablet 16 mg PO DAILY 02/20/25 08/27/25 History furosemide 40 mg tablet 40 mg PO DAILY #30 tabs 06/29/25 08/27/25 Rx hydralazine 25 mg tablet 50 mg PO BEDTIME 07/13/25 08/27/25 History Supplemental oxygen 2 - 4 l inhalation DAILY #1 ea 08/21/25 08/27/25 Rx Oxygen #1 ea 08/27/25 08/27/25 Rx acetazolamide 125 mg tablet 125 mg PO DAILY 08/27/25 08/27/25 History Allergies Allergy/AdvReac Type Severity Reaction Status Date / Time levofloxacin Allergy Intermediate Rash Verified 09/14/25 17:09 amoxicillin (From Augmentin) AdvReac stomach Verified 09/14/25 17:09 ache clavulanic acid (From AdvReac stomach Verified 09/14/25 17:09 Augmentin) ache Review of Systems Review of Systems ROS: Yes All systems reviewed with the patient and are negative except as otherwise documented Exam Vital Signs (past 8 hours): - 09/14/25 22:30 09/14/25 22:30 09/14/25 23:00 Temperature Pulse Rate 58 L 54 L Respiratory Rate 15 13 Blood Pressure 111/56 L Pulse Oximetry 96 96 Oxygen Delivery Method Nasal Cannula Oxygen Flow Rate 2 Fraction of Inspired Oxygen 09/14/25 23:00 09/14/25 23:30 09/14/25 23:30 Temperature Pulse Rate 60 Respiratory Rate 15 Blood Pressure 99/55 L 117/56 L Pulse Oximetry 94 Oxygen Delivery Method Nasal Cannula Oxygen Flow Rate 2 Fraction of Inspired Oxygen 09/14/25 23:35 09/15/25 00:00 09/15/25 00:00 Temperature Pulse Rate 59 L 56 L Respiratory Rate 20 14 Blood Pressure 111/53 L Pulse Oximetry 95 96 Oxygen Delivery Method Nasal Cannula Oxygen Flow Rate 2 Fraction of Inspired Oxygen 28 09/15/25 00:30 09/15/25 00:30 09/15/25 01:00 Temperature Pulse Rate 55 L Respiratory Rate 13 Blood Pressure 106/54 L 101/52 L Pulse Oximetry 96 Oxygen Delivery Method Nasal Cannula Oxygen Flow Rate 2 Fraction of Inspired Oxygen 09/15/25 01:00 09/15/25 01:13 09/15/25 01:13 Temperature 98.1 F Pulse Rate 53 L 54 L Respiratory Rate 13 17 Blood Pressure 104/54 L 104/54 L Pulse Oximetry 95 Oxygen Delivery Method Oxygen Flow Rate Fraction of Inspired Oxygen 09/15/25 01:13 09/15/25 01:30 09/15/25 01:30 Temperature 98.1 F Pulse Rate 54 L 61 61 Respiratory Rate 14 16 16 Blood Pressure 128/61 Pulse Oximetry 95 94 Oxygen Delivery Method Oxygen Flow Rate Fraction of Inspired Oxygen 09/15/25 01:30 09/15/25 02:00 09/15/25 02:00 Temperature Pulse Rate 62 Respiratory Rate 15 Blood Pressure 128/61 129/62 Pulse Oximetry 94 Oxygen Delivery Method Nasal Cannula Oxygen Flow Rate 2 Fraction of Inspired Oxygen 09/15/25 02:30 09/15/25 02:30 09/15/25 03:00 Temperature Pulse Rate 61 Respiratory Rate 15 Blood Pressure 127/60 131/63 Pulse Oximetry 96 Oxygen Delivery Method Oxygen Flow Rate Fraction of Inspired Oxygen 09/15/25 03:00 09/15/25 03:30 09/15/25 03:30 Temperature Pulse Rate 62 62 Respiratory Rate 15 16 Blood Pressure 131/60 Pulse Oximetry 95 95 Oxygen Delivery Method Nasal Cannula Nasal Cannula Oxygen Flow Rate 2 2 Fraction of Inspired Oxygen 09/15/25 04:00 09/15/25 04:00 09/15/25 04:09 Temperature 98.1 F Pulse Rate 62 Respiratory Rate 16 Blood Pressure 134/61 Pulse Oximetry 95 Oxygen Delivery Method Oxygen Flow Rate Fraction of Inspired Oxygen 09/15/25 04:30 09/15/25 04:30 09/15/25 05:00 Temperature Pulse Rate 62 Respiratory Rate 15 Blood Pressure 130/61 129/63 Pulse Oximetry 95 Oxygen Delivery Method Oxygen Flow Rate Fraction of Inspired Oxygen 09/15/25 05:00 09/15/25 05:30 09/15/25 05:30 Temperature Pulse Rate 62 62 Respiratory Rate 16 18 Blood Pressure 132/63 Pulse Oximetry 95 94 Oxygen Delivery Method Nasal Cannula Oxygen Flow Rate 2 Fraction of Inspired Oxygen 09/15/25 06:00 09/15/25 06:00 Temperature Pulse Rate 62 Respiratory Rate 16 Blood Pressure 133/64 Pulse Oximetry 96 Oxygen Delivery Method Nasal Cannula Oxygen Flow Rate 2 Fraction of Inspired Oxygen Fraction of Inspired Oxygen 28 SaO2/FiO2 Ratio 339 Oxygen Delivery Method Nasal Cannula Oxygen Flow Rate 2 Narrative Exam Narrative: Physical Exam: GENERAL: The patient is not in any acute distressed. Awake and alert. HEENT: Nonicteric sclerae, PERRLA, EOMI. Oropharynx clear. Moist mucous membranes. Conjunctivae appear well perfused. HEART: Regular rate and rhythm without murmurs. 1+ lower extremities edema. LUNGS: Clear to auscultation bilaterally. No wheezing, crackles or rhonchi ABDOMEN: Soft, positive bowel sounds, nontender. SKIN: No rash, no excessive bruising, petechiae, or purpura. NEUROLOGIC: AxO x 3. Cranial nerves II-XII intact without motor/sensory deficit. Objective Labs 09/15/25 05:15 09/15/25 05:15 Labs: Laboratory Results - last 24 hr 09/14/25 09/14/25 09/14/25 18:08 18:12 18:41 WBC 12.6 H RBC 2.14 L Hgb 6.8 L* Hct 19.6 L* MCV 91.6 MCH 31.7 MCHC 34.6 RDW 15.1 H Plt Count 424 H Neut % (Auto) 90.3 H Lymph % (Auto) 3.7 L [place] % (Auto) 4.9 Eos % (Auto) 0.6 L Baso % (Auto) 0.5 Neut # (Auto) 01153 H Lymph # (Auto) 500 L [place] # (Auto) 600 Eos # (Auto) 100 Baso # (Auto) 100 RBC Morphology See below Anisocytosis 1+ H PT 10.0 INR 0.9 APTT 29 VBG pH 7.42 VBG pCO2 46.1 VBG pO2 41 VBG HCO3 30 H VBG Total CO2 29 VBG O2 Saturation 76 H VBG Base Excess 4.7 H Sodium 122 L Potassium 4.1 Chloride 83 L Carbon Dioxide 33 H BUN 45 H Creatinine 2.35 H Estimated GFR 19 L BUN/Creatinine Ratio 19.1 Glucose 112 H Lactate 0.6 L Calcium 8.3 L Magnesium 2.5 H Total Bilirubin 0.2 AST 22 ALT 5 Alkaline Phosphatase 101 Total Creatine Kinase < 20 L Troponin I 0.013 NT-Pro-B Natriuret Pep 04515 H Total Protein 7.0 Albumin 3.6 Globulin 3.4 Albumin/Globulin Ratio 1.1 Lipase 58 Urine Color Urine Appearance Urine pH Ur Specific [place] Urine Protein Urine Glucose (UA) Urine Ketones Urine Occult Blood Urine Nitrate Urine Bilirubin Urine Urobilinogen Ur Leukocyte Esterase Urine RBC Urine WBC Ur Squamous Epith Cells Urine Bacteria Ur Culture Indicated? Vol Urine Centrifuged SARS-CoV-2 (PCR) Negative Influenza A (RT-PCR) Flu a negative Influenza B (RT-PCR) Flu b negative RSV (PCR) Negative Blood Type Antibody Screen Antibody Identification Crossmatch 09/14/25 09/14/25 09/14/25 21:21 21:21 22:14 WBC RBC Hgb Hct MCV MCH MCHC RDW Plt Count Neut % (Auto) Lymph % (Auto) [place] % (Auto) Eos % (Auto) Baso % (Auto) Neut # (Auto) Lymph # (Auto) [place] # (Auto) Eos # (Auto) Baso # (Auto) RBC Morphology Anisocytosis PT INR APTT VBG pH VBG pCO2 VBG pO2 VBG HCO3 VBG Total CO2 VBG O2 Saturation VBG Base Excess Sodium Potassium Chloride Carbon Dioxide BUN Creatinine Estimated GFR BUN/Creatinine Ratio Glucose Lactate Calcium Magnesium Total Bilirubin AST ALT Alkaline Phosphatase Total Creatine Kinase Troponin I NT-Pro-B Natriuret Pep Total Protein Albumin Globulin Albumin/Globulin Ratio Lipase Urine Color Yellow Urine Appearance Clear Urine pH 6.0 Ur Specific [place] 1.010 Urine Protein Negative Urine Glucose (UA) Negative Urine Ketones Negative Urine Occult Blood Negative Urine Nitrate Negative Urine Bilirubin Negative Urine Urobilinogen 0.2 Ur Leukocyte Esterase Negative Urine RBC None seen Urine WBC 0-1/hpf Ur Squamous Epith Cells None seen Urine Bacteria Few (2-10) H Ur Culture Indicated? Cult not indicated Vol Urine Centrifuged 10ml (spun) SARS-CoV-2 (PCR) Influenza A (RT-PCR) Influenza B (RT-PCR) RSV (PCR) Blood Type O Negative Antibody Screen Positive A Antibody Identification Anti-C Anti-D Crossmatch See Detail 09/15/25 05:15 WBC 10.7 RBC 2.79 L Hgb 8.8 L Hct 25.1 L MCV 90.1 MCH 31.7 MCHC 35.2 RDW 14.9 H Plt Count 391 Neut % (Auto) 97.5 H Lymph % (Auto) 2.1 L [place] % (Auto) 0.3 L Eos % (Auto) 0.0 L Baso % (Auto) 0.1 Neut # (Auto) 82241 H Lymph # (Auto) 200 L [place] # (Auto) 0 Eos # (Auto) 0 Baso # (Auto) 0 RBC Morphology Anisocytosis PT INR APTT VBG pH VBG pCO2 VBG pO2 VBG HCO3 VBG Total CO2 VBG O2 Saturation VBG Base Excess Sodium 124 L Potassium 4.0 Chloride 86 L Carbon Dioxide 33 H BUN 42 H Creatinine 2.22 H Estimated GFR 21 L BUN/Creatinine Ratio 18.9 Glucose 121 H Lactate Calcium 8.4 Magnesium Total Bilirubin AST ALT Alkaline Phosphatase Total Creatine Kinase Troponin I NT-Pro-B Natriuret Pep Total Protein Albumin Globulin Albumin/Globulin Ratio Lipase Urine Color Urine Appearance Urine pH Ur Specific [place] Urine Protein Urine Glucose (UA) Urine Ketones Urine Occult Blood Urine Nitrate Urine Bilirubin Urine Urobilinogen Ur Leukocyte Esterase Urine RBC Urine WBC Ur Squamous Epith Cells Urine Bacteria Ur Culture Indicated? Vol Urine Centrifuged SARS-CoV-2 (PCR) Influenza A (RT-PCR) Influenza B (RT-PCR) RSV (PCR) Blood Type Antibody Screen Antibody Identification Crossmatch Assessment & Plan Assessment & Plan narrative: Acute on chronic heart failure exacerbation. Unclear type. The patient to medical telemetry as inpatient. Continue IV Lasix with strict I's and O and daily weight. Monitor renal function. Multifocal pneumonia. Continue IV azithromycin and ceftriaxone. Of note the patient is septic at this time. Possible COPD exacerbation. Continue Solu-Medrol and DuoNebs. Patient received IV Decadron in the ER. Acute respiratory failure with hypoxemia. Likely due to above. Treat as above and wean oxygen as able. Currently patient is on 1 to 2 L of oxygen. Hyponatremia. Likely secondary to hypervolemia. IV Lasix and monitor sodium level. Chronic anemia. Hemoglobin 8.6 at baseline. Today 6.9. Likely due to underlying MDS. Patient got 1 unit packed red blood cell in the ER. In addition patient does have chronic renal insufficiency. Will monitor for any bleeding and recheck hemoglobin after transfusion. Hypertension. Monitor blood pressure and resume home medication accordingly DVT prophylaxis SCDs. CODE STATUS full code. Disposition likely home in 2 to 3 days. - As the provider of this telehealth evaluation, requested by the patient's evaluating physician, I attest that I introduced myself to the patient, provided my credentials and determined that telemedicine via a real-time, 2 way interactive audio and video platform is an appropriate and effective means of providing this service. - I reviewed the patient's chart and had a discussion with the member of the patient's treatment team. - The patient and I mutually agreed with continuation of this evaluation via telemedicine. The patient consented for the telemedicine evaluation. - This virtual encounter was taken place from [place] by Dr. Kurt Rodriguez. The patient was evaluated at [facility]. The encounter was approximately 35 minutes. The nurse was present during the entire time of the encounter and was able to assists with exam/stethoscope. Time-Based Coding :: [TOTAL MINUTES] spent with patient and on the chart (including review of chart, obtaining history, exam, reviewing outside data, placing orders, documenting exam and treatment plan, and counseling patient) on [DATE].
--- NOTE | 2025-09-15 07:23 | PC.NURSE ---
report given to MEGAN Keller
[2025-09-15] MEDS: methylPREDNISolone succ 125 MG/2 ML VIAL 40 MG IV ×3 (08:23→21:22)
[2025-09-15] MEDS: ALBUTEROL/IPRATROPIUM 3 ML AMPUL INH ×2 (12:18→19:20)
--- NOTE | 2025-09-15 14:05 | PC.NURSE ---
Pt arrived from ED on stretcher at 1325, transferred to bed with help of slider board. A&Ox4, VSS on 4L NC. No c/o pain, breath sounds diminished, bowel sounds present, CMS+ throughout. Purewick connected. Patient and family oriented to room and call light. Bed in low position, bed alarm activated, call light within reach.
--- NOTE | 2025-09-15 15:44 | ST.IPCSEOM ---
Visit Care Team Role Provider Type Harshal Aleman MD Family Provider Physician Primary Care Provider Specialty: Family Practice Address: [address] [place] [address], [id number] Email: Oscar Bonilla MD Emergency Provider Physician Referring Provider Specialty: Emergency Medicine Address: [address] [place] [address], [facility] Phone: Fax: Email: [email or web address] Rodriguez MD Admit Provider Physician Attending Provider Specialty: Internal Medicine Address: [address] [place] [address], [id number] Email: [email or web address] Current Diagnoses Heart failure, unspecified (09/14/25) Past Medical History (Last Reviewed 02/25/25 @ 08:47 by Mao Ball MD) Anemia (Medical) Cataracts, bilateral (Medical ~2018) Chronic cough (Medical ~1985) CKD (chronic kidney disease) stage 3, GFR 30-59 ml/min (Medical) CKD stage G4/A3, 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 (Medical) 07/12/2023: GFR 29, microalbumin/Cr ug/mg COPD (chronic obstructive pulmonary disease) (Medical) Hearing loss (Medical ~2017) History of recurrent ear infection (Medical) Hypertension (Medical ~2018) MGUS (monoclonal gammopathy of unknown significance) (Medical) Recurrent sinusitis (Medical) Speech-Language Pathology Swallow Evaluation [employer] [facility] Clinical Swallow Evaluation Start: 09/15/25 15:06 Freq: Status: Active Protocol: Document 09/15/25 15:07 SS (Rec: 09/15/25 15:44 SS [email or web address]) Clinical Swallow Evaluation Session Time Visit Start Time 14:25 Visit Stop Time 14:55 Total Visit Minutes 30 Visit Information Visit Number [address] Otoniel Hinojosa MD Reason for Referral Chronic dysphagia Setting Assessment Location Acute Care Visit Type Note Type Initial evaluation Next Note Type Next Note Type Treatment Note Patient Information Identification Type Name,Date of History Per H&P: 89-year-old female medical history of MDS, chronic anemia COPD not oxygen dependent, CHF, hypertension, presents with complaint of shortness of breath. Per the patient report, over the last 2 to 3 days, the patient has been having increased shortness of breath and a productive cough with some greenish sputum. The patient also has increasing wheezing and lower extreme edema. The patient however denies any fever, chills, nausea, vomiting, diarrhea, chest p productive cough ain or syncope. In the emergency room, the patient was hemodynamically stable but was requiring 1 to 2 L oxygen per nasal cannula. Labs shows a WBC of 12.6 hemoglobin 6.8 sodium 122 creatinine 2.35 BNP of 10,300 troponin 0.01. Influenza and COVID RSV are negative. The patient was given IV Lasix along with 1 unit of packed red blood cells. IV dexamethasone milligram as well as DuoNebs were given. Rocephin and azithromycin given. Pt admitted for multifocal pneumonia. She is well known to this [employer] [facility]. Previously completed treatment targeting dysphagia from 07/23 to 09/10/25. Over the course of treatment, pt had improved in self-perception of swallowing to a perception of 4/40 at time of discharge (previously 8/40) on EAT-10. Pt also endorses improvement in swallowing during meals. Repeat MBSS completed on 08/13. Per MBSS report, pt demonstrated mild oral dysphagia with moderate pharyngeal phase. Laryngeal penetration of pharyngeal residue/secretions observed. Pt at moderate aspiration risk of secretions and residual foods/liquids within pharynx, though this is an improvement from MBSS result of 02/24/25. Double swallow and Effortful swallows were effective in clearing pharyngeal residue. Cough was observed to be weak. Subjective Pt reclined in bed upon [employer] [facility] arrival with daughter at Observations bedside. pt agreeable to [employer] [facility] evaluation and remembers this [employer] [facility], stating I've been making sure to swallow hard a few times like you told me. Pt had NC in place for supplemental oxygen (2L 99%). Reported by Patient/Caregiver Other Symptoms Coughing,Difficulty swallowing liquids,Difficulty swallowing solids,History of aspiration or pneumonia, Weight loss Comment BASELINE LEVEL OF FUNCTION Solids: Soft and bite-sized Liquids: Thin Medications: Whole with liquid wash Functional Oral Intake Scale (FOIS): FOIS level 5 FOIS [place]: Level 1 = no oral intake, Level 2 = tube dependent with minimal/inconsistent oral intake, Level 3 = tube supplements with consistent oral intake, Level 4 = total oral intake of a single consistency, Level 5 = total oral intake of multiple consistencies requiring special preparation, Level 6 = total oral intake with no special preparation, but must avoid specific foods or liquid items, Level 7 = total oral intake with no restrictions Pt reported occasional coughing with thin liquids, particularly if she forgets to use single small sips. She reported ongoing globus sensation, but is able to recall to use multiple swallows and effortful swallow most of the time. Current Diet Soft & Bite-sized (IDDSI 6) Baseline Feeding Independent in self-feeding Method The IDDSI Framework Protocol: IDDSI.1 Objective Assessment Mental Status Alert,Responsive,Cooperative Oral Integrity WFL Dentition Missing teeth,Inadequate dentition for mastication Lip Function Within normal limits Tongue Function Within normal limits Jaw Function Within normal limits Hard/Soft Palate Within normal limits Function Respiratory Mild impairment Sufficiency Comment On supplemental oxygen at baseline. See above. Oral health is good. Pt reports completing oral care 2-3 times daily. Food and Liquid Trials Position During Upright (90 degrees) Assessment Liquids Trialed Thin (IDDSI 0) Solid Trials Purred (IDDSI 4),Soft & Bite-sized (IDDSI 6) Administration Type Cup single sip,Controlled cup sip,Self-feeding Oral Impairment Mildly impaired Oral Phase Comments Per MBSS report on 08/13/25: Lip Closure: Interlabial escape; no progression to anterior lip Tongue Control During Bolus Hold: Cohesive bolus between tongue to palatal seal Bolus Preparation/Mastication: Disorganized chewing/ mashing with solid pieces of bolus unchewed Bolus Transport/Lingual Motion: Delayed initiation of tongue motion Oral Residue: Residue collection on oral structures Initiation of Pharyngeal Swallow: Bolus head at pyriforms During trials, pt demonstrated adequate bolus retrieval without anterior loss of liquids. She exhibited mildly prolonged bolus manipulation with soft and bite-sized texture and reduced oral clearance resulting in small amount of oral residue with solids. Pt cleared independently with liquid wash. Pharyngeal Moderately impaired Impairment Pharyngeal Phase Per MBSS report: Comments Soft Palate Elevation: Trace column of contrast between soft palate & pharyngeal wall Laryngeal Elevation: Partial superior movement of thyroid cartilage and partial approximation of arytenoids to epiglottic petiole Anterior Hyoid Excursion: No anterior movement Epiglottic Movement: partial inversion Laryngeal Vestibular Closure: Incomplete; narrow column air/ contrast in laryngeal vestibule Pharyngeal Stripping Wave: Present - diminished Pharyngoesophageal Segment Opening: Partial distention & partial duration; partial obstruction of flow Tongue Base Retraction: Wide column of contrast/air between tongue base & posterior pharyngeal wall Pharyngeal Residue: Minimal to no pharyngeal clearance Laryngeal penetration of pharyngeal residue observed without tracheal aspiration. Across trials, pt did not demonstrate overt s/sx of aspiration, though reported occasional globus sensation . She intuitively took single small sips of thin liquid and used slow rate across trials. She was able to use effortful swallows and swallow multiple times independently as previously recommended by [employer] [facility]. Fatigue/Endurance Mild fatigue The IDDSI Framework Protocol: IDDSI.1 Findings Swallowing Function Oropharyngeal phase dysphagia Severity of Swallow Moderately impaired Impairment Contributing Factors Reduced oral strength/coordination/sensation, to Swallow Mastication inefficiency,Impaired oral-pharyngeal Impairment transport,Delayed swallow initiation,Reduced laryngeal excursion,Impaired airway protection,Excessive pharyngeal residue Prognosis Fair Based on Bed bound,Age,History of aspiration/aspiration pneumonia,Comorbidities,Duration of symptoms/severity Comment Pt presents with mild oral dysphagia and moderate pharyngeal dysphagia per MBSS results on 08/13/25. Subjectively, no change in overall swallowing function noted since pt was discharged for [employer] [facility] services. Oral phase of swallow characterized by disorganized mastication (2/2 dentition), delayed initiation of tongue motion, and oral residue. Pharyngeal phase of swallow was characterized by diminished pharyngeal stripping wave, reduced tongue base retraction, reduced laryngeal elevation and excursion, and inconsistent epiglottic inversion. This resulted in collection of pharyngeal residue and frequent penetration. Use of Effortful swallows and double swallows to clear residue and increase airway protection were shown to be effective on MBSS. Swallow safety and efficiency are compromised. Based on pt?s current good oral health status and compromised immune function, pt remains at a moderate- high risk of pulmonary compromise associated with aspiration at this time. Pt appears to be at a moderate risk for malnutrition/dehydration given reduced appetite and weight loss. Dietitian order placed. Recommend pt continue to consume soft and bite-sized solids and thin liquids. Given no change to swallowing function since MBSS was completed a month ago, chronic nature of pt?s dysphagia, and present comorbidities, recommend 1-2 additional treatment sessions to ensure diet tolerance and completion of HEP. Pt may benefit from initiation of use of EMST-75 to improve airway protection and cough strength. Impact on Safety and Risk for aspiration,Risk for inadequate nutrition/ Functioning hydration Recommendations Instrumental No Assessment Swallowing Treatment Yes Frequency Daily (1-2 times) Duration During admission Recommended Solids Soft & Bite-sized (IDDSI 6) Recommended Liquids Thin (IDDSI 0) Other Recommend expiratory muscle strength training (EMST) Recommendations with pressure threshold device to increase activation of submental musculature and improve airway protection. Safety Precautions/ 1 to 1 distant supervision,Reduce distractions,Remain Swallowing upright (90 degrees) during all oral intake,Upright Recommendations position at least 30 minutes after meals,Small bites and sips when eating,Slow rate; swallow between bites, Multiple swallows Medication Whole in Carrier,Crushed in Carrier Recommendations Discharge Home with Home Health,Outpatient therapy Recommendations Referrals Recommended Dietary Referrals Education Patient/Caregiver Described results of evaluation,Patient expressed Education understanding of evaluation,Patient expressed agreement with goals & treatment plans,Family/caregivers expressed understanding of evaluation,Family/caregivers expressed agreement with goals & treatment plans Goals Short-term Goals 1. Patient will use compensatory meal strategies with 90% accuracy to increase safety with PO intake per pt report. 2. Patient will complete EMST-75 training with correct technique at a prescribed resistance level, completing 5 sets of 5 repetitions with min verbal/visual cues, to improve airway protection and cough strength. Long-term Goals 1. Patient will safely tolerate least restrictive diet consistency to allow for safe consumption of daily meals without s/sx of aspiration.
--- NOTE | 2025-09-15 16:11 | PM.PN.1 ---
Subjective Subjective Date Patient Seen: 09/15/25 Time Patient Seen: 16:11 Interval history: This is an 89-year-old female with a medical history of MDS, chronic anemia COPD not oxygen dependent, CHF, hypertension who presents with shortness of breath. Per the patient report, over the last 2 to 3 days, the patient has been having increased shortness of breath and a productive cough with some greenish sputum. The patient also has increasing wheezing and lower extreme edema. The patient however denies any fever, chills, nausea, vomiting, diarrhea, chest pain, productive cough or syncope. In the emergency room, the patient was hemodynamically stable but was requiring 1 to 2 L oxygen per nasal cannula. Labs shows a WBC of 12.6 hemoglobin 6.8 sodium 122 creatinine 2.35 BNP of 10,300 troponin 0.01. Influenza and COVID RSV are negative. The patient was given IV Lasix along with 1 unit of packed red blood cells. IV dexamethasone milligram as well as DuoNebs were given. Rocephin and azithromycin given. 09/15: She is quite distracted today by her family visit. She says she is feeling better and has no other questions. The hemoglobin has risen from 6.8 up to 8.8 after the blood transfusion. The sodium level is improving at 124. The creatinine is also improving at 2.22. The magnesium level remains high at 2.5. She already follows up with Nephrology for her CKD. She lives with her family here in [facility]. Assessment & Plan Acute on chronic heart failure exacerbation. -Continue IV Lasix with strict I's and O and daily weight. -Monitor renal function. Multifocal pneumonia. -Continue IV azithromycin and ceftriaxone. Possible COPD exacerbation. -Continue Solu-Medrol and DuoNebs. Patient received IV Decadron in the ER. Acute respiratory failure with hypoxemia. Likely due to above. -Treat as above and wean oxygen as able. Currently patient is on 1 to 2 L of oxygen. Hyponatremia. -Likely secondary to hypervolemia. -IV Lasix and monitor sodium level. Chronic anemia. -Hemoglobin 8.6 at baseline. On admission at 6.9. Likely due to underlying MDS. -Patient got 1 unit packed red blood cell in the ER. In addition patient does have chronic renal insufficiency. -Will monitor for any bleeding and recheck hemoglobin after transfusion. Hypertension. Monitor blood pressure and resume home medication accordingly DVT prophylaxis SCDs. CODE STATUS full code. Disposition likely home in 2 to 3 days Exam Vital Signs (past 8 hours): - 09/15/25 08:30 09/15/25 08:30 09/15/25 09:00 Temperature Pulse Rate 70 71 Respiratory Rate 19 24 Blood Pressure 150/68 H Pulse Oximetry 97 97 Oxygen Delivery Method Room Air Nasal Cannula Oxygen Flow Rate 3 Fraction of Inspired Oxygen 09/15/25 09:00 09/15/25 09:30 09/15/25 09:30 Temperature Pulse Rate 69 Respiratory Rate 23 Blood Pressure 127/65 136/63 Pulse Oximetry 99 Oxygen Delivery Method Oxygen Flow Rate 3 Fraction of Inspired Oxygen 09/15/25 09:35 09/15/25 10:00 09/15/25 10:00 Temperature Pulse Rate 68 66 Respiratory Rate 19 Blood Pressure 136/63 133/60 Pulse Oximetry 99 Oxygen Delivery Method Nasal Cannula Oxygen Flow Rate 3 Fraction of Inspired Oxygen 09/15/25 10:30 09/15/25 10:30 09/15/25 11:00 Temperature Pulse Rate 64 Respiratory Rate 20 Blood Pressure 135/63 130/61 Pulse Oximetry 99 Oxygen Delivery Method Oxygen Flow Rate Fraction of Inspired Oxygen 09/15/25 11:00 09/15/25 11:30 09/15/25 11:30 Temperature Pulse Rate 63 62 Respiratory Rate 18 20 Blood Pressure 131/67 Pulse Oximetry 97 98 Oxygen Delivery Method Nasal Cannula Oxygen Flow Rate 2 Fraction of Inspired Oxygen 09/15/25 12:00 09/15/25 12:00 09/15/25 12:20 Temperature Pulse Rate 61 63 Respiratory Rate 16 18 Blood Pressure 127/60 Pulse Oximetry 99 99 Oxygen Delivery Method Nasal Cannula Oxygen Flow Rate 2 Fraction of Inspired Oxygen 28 09/15/25 12:30 09/15/25 12:30 09/15/25 13:00 Temperature 98.1 F Pulse Rate 66 64 Respiratory Rate 17 16 Blood Pressure 129/60 125/60 Pulse Oximetry 97 98 Oxygen Delivery Method Oxygen Flow Rate Fraction of Inspired Oxygen 09/15/25 13:00 09/15/25 13:00 09/15/25 13:25 Temperature 98.4 F Pulse Rate 64 71 Respiratory Rate 16 21 Blood Pressure 125/60 150/59 H Pulse Oximetry 98 96 Oxygen Delivery Method Oxygen Flow Rate 4 Fraction of Inspired Oxygen 09/15/25 13:40 Temperature Pulse Rate Respiratory Rate Blood Pressure Pulse Oximetry Oxygen Delivery Method Nasal Cannula Oxygen Flow Rate Fraction of Inspired Oxygen Fraction of Inspired Oxygen 28 SaO2/FiO2 Ratio 353 Oxygen Delivery Method Nasal Cannula Oxygen Flow Rate 4 Narrative Exam Narrative: Alert and oriented x3. No apparent distress. Heart is regular rate and rhythm without murmur. Lungs are clear to auscultation bilaterally. Abdomen is soft, bowel sounds positive, nontender, no organomegaly. Extremities have no ankle edema. Objective Labs 09/15/25 05:15 09/15/25 05:15 Labs: Laboratory Results - last 24 hr 09/14/25 09/14/25 09/14/25 18:08 18:12 18:41 WBC 12.6 H RBC 2.14 L Hgb 6.8 L* Hct 19.6 L* MCV 91.6 MCH 31.7 MCHC 34.6 RDW 15.1 H Plt Count 424 H Neut % (Auto) 90.3 H Lymph % (Auto) 3.7 L Cecil % (Auto) 4.9 Eos % (Auto) 0.6 L Baso % (Auto) 0.5 Neut # (Auto) 95473 H Lymph # (Auto) 500 L Cecil # (Auto) 600 Eos # (Auto) 100 Baso # (Auto) 100 RBC Morphology See below Anisocytosis 1+ H PT 10.0 INR 0.9 APTT 29 VBG pH 7.42 VBG pCO2 46.1 VBG pO2 41 VBG HCO3 30 H VBG Total CO2 29 VBG O2 Saturation 76 H VBG Base Excess 4.7 H Sodium 122 L Potassium 4.1 Chloride 83 L Carbon Dioxide 33 H BUN 45 H Creatinine 2.35 H Estimated GFR 19 L BUN/Creatinine Ratio 19.1 Glucose 112 H Lactate 0.6 L Calcium 8.3 L Magnesium 2.5 H Total Bilirubin 0.2 AST 22 ALT 5 Alkaline Phosphatase 101 Total Creatine Kinase < 20 L Troponin I 0.013 NT-Pro-B Natriuret Pep 45199 H Total Protein 7.0 Albumin 3.6 Globulin 3.4 Albumin/Globulin Ratio 1.1 Lipase 58 Urine Color Urine Appearance Urine pH Ur Specific Spencer Urine Protein Urine Glucose (UA) Urine Ketones Urine Occult Blood Urine Nitrate Urine Bilirubin Urine Urobilinogen Ur Leukocyte Esterase Urine RBC Urine WBC Ur Squamous Epith Cells Urine Bacteria Ur Culture Indicated? Vol Urine Centrifuged SARS-CoV-2 (PCR) Negative Influenza A (RT-PCR) Flu a negative Influenza B (RT-PCR) Flu b negative RSV (PCR) Negative Blood Type Antibody Screen Antibody Identification Crossmatch 09/14/25 09/14/25 09/14/25 21:21 21:21 22:14 WBC RBC Hgb Hct MCV MCH MCHC RDW Plt Count Neut % (Auto) Lymph % (Auto) Cecil % (Auto) Eos % (Auto) Baso % (Auto) Neut # (Auto) Lymph # (Auto) Cecil # (Auto) Eos # (Auto) Baso # (Auto) RBC Morphology Anisocytosis PT INR APTT VBG pH VBG pCO2 VBG pO2 VBG HCO3 VBG Total CO2 VBG O2 Saturation VBG Base Excess Sodium Potassium Chloride Carbon Dioxide BUN Creatinine Estimated GFR BUN/Creatinine Ratio Glucose Lactate Calcium Magnesium Total Bilirubin AST ALT Alkaline Phosphatase Total Creatine Kinase Troponin I NT-Pro-B Natriuret Pep Total Protein Albumin Globulin Albumin/Globulin Ratio Lipase Urine Color Yellow Urine Appearance Clear Urine pH 6.0 Ur Specific Spencer 1.010 Urine Protein Negative Urine Glucose (UA) Negative Urine Ketones Negative Urine Occult Blood Negative Urine Nitrate Negative Urine Bilirubin Negative Urine Urobilinogen 0.2 Ur Leukocyte Esterase Negative Urine RBC None seen Urine WBC 0-1/hpf Ur Squamous Epith Cells None seen Urine Bacteria Few (2-10) H Ur Culture Indicated? Cult not indicated Vol Urine Centrifuged 10ml (spun) SARS-CoV-2 (PCR) Influenza A (RT-PCR) Influenza B (RT-PCR) RSV (PCR) Blood Type O Negative Antibody Screen Positive A Antibody Identification Anti-C Anti-D Crossmatch See Detail 09/15/25 05:15 WBC 10.7 RBC 2.79 L Hgb 8.8 L Hct 25.1 L MCV 90.1 MCH 31.7 MCHC 35.2 RDW 14.9 H Plt Count 391 Neut % (Auto) 97.5 H Lymph % (Auto) 2.1 L Cecil % (Auto) 0.3 L Eos % (Auto) 0.0 L Baso % (Auto) 0.1 Neut # (Auto) 63362 H Lymph # (Auto) 200 L Cecil # (Auto) 0 Eos # (Auto) 0 Baso # (Auto) 0 RBC Morphology Anisocytosis PT INR APTT VBG pH VBG pCO2 VBG pO2 VBG HCO3 VBG Total CO2 VBG O2 Saturation VBG Base Excess Sodium 124 L Potassium 4.0 Chloride 86 L Carbon Dioxide 33 H BUN 42 H Creatinine 2.22 H Estimated GFR 21 L BUN/Creatinine Ratio 18.9 Glucose 121 H Lactate Calcium 8.4 Magnesium Total Bilirubin AST ALT Alkaline Phosphatase Total Creatine Kinase Troponin I NT-Pro-B Natriuret Pep Total Protein Albumin Globulin Albumin/Globulin Ratio Lipase Urine Color Urine Appearance Urine pH Ur Specific Spencer Urine Protein Urine Glucose (UA) Urine Ketones Urine Occult Blood Urine Nitrate Urine Bilirubin Urine Urobilinogen Ur Leukocyte Esterase Urine RBC Urine WBC Ur Squamous Epith Cells Urine Bacteria Ur Culture Indicated? Vol Urine Centrifuged SARS-CoV-2 (PCR) Influenza A (RT-PCR) Influenza B (RT-PCR) RSV (PCR) Blood Type Antibody Screen Antibody Identification Crossmatch [facility] Medical History Chronic cough (~1985) Anemia Recurrent sinusitis History of recurrent ear infection Hearing loss (~2017) Cataracts, bilateral (~2018) CKD stage G4/A3, 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 Hypertension (~2018) MGUS (monoclonal gammopathy of unknown significance) COPD (chronic obstructive pulmonary disease) CKD (chronic kidney disease) stage 3, GFR 30-59 ml/min Surgical History Anesthesia History of colonoscopy (~2006) History of section History of nasal septoplasty (~2015) History of hysterectomy (~1981) History of exploratory laparotomy (~1984) Family History Father COPD (chronic obstructive pulmonary disease) Mother Cancer Sister Diabetes mellitus Grandfather Stroke Grandmother History of heart disease Grandfather History of heart disease Grandmother History of heart disease Social History household members: children Smoking Status: Never smoker alcohol intake: never Assessment & Plan Time-Based Coding :: [TOTAL MINUTES] spent with patient and on the chart (including review of chart, obtaining history, exam, reviewing outside data, placing orders, documenting exam and treatment plan, and counseling patient) on [DATE].
[2025-09-15] MEDS: AZITHROMYCIN 500 MG in DEXTROSE 5% IN WATER 250 ML 250 MG IV (21:15)
[2025-09-15] MEDS: MIRTAZAPINE 15 MG TABLET PO (21:16)
[2025-09-15] MEDS: MELATONIN 3 MG TABLET 6 MG PO (21:16)
[2025-09-16] VITALS (10 sets, daily range): BP systolic 117–136; BP diastolic 50–93; PULSE 64–69; RESP 17–32; TEMP 36–36.8; O2SAT 91–96
[2025-09-16] MEDS: methylPREDNISolone succ 125 MG/2 ML VIAL 40 MG IV ×4 (01:53→18:26)
[2025-09-16] MEDS: FUROSEMIDE 40 MG/4 ML VIAL IV ×3 (04:18→21:40)
[2025-09-16] MEDS: SODIUM CHLORIDE 0.9% FLUSH 10 ML IV ×3 (04:19→21:41)
[2025-09-16 06:49] LABS: Add Manual Diff / Slide Review NO; Hematocrit 25.2 % (36-46); Hemoglobin 8.7 g/dL (12.0-16.0); Lymphocytes Absolute Auto 300 /uL (1100-4500); Mean Corpuscular HGB Conc 34.5 % (30-36); Mean Corpuscular Hemoglobin 31.5 PG (26-34); Mean Corpuscular Volume 91.2 fL (80-100); Platelet Count 405 X10^3/uL (150-400)
[2025-09-16 07:06] LABS: Blood Urea Nitrogen 52 mg/dL (7-17); Calcium 8.5 mg/dL (8.4-10.2); Carbon Dioxide 34 mmol/L (22-32); Chloride 86 mmol/L (98-107); Estimated Glomerular Filt Rate 22 mL/min (>60); Glucose 144 mg/dL (70-99); HEMOLYSIS < 15 (0-50); Potassium 3.9 mmol/L (3.4-5.1); Sodium 126 mmol/L (137-145)
[2025-09-16] MEDS: ALBUTEROL/IPRATROPIUM 3 ML AMPUL INH ×3 (08:54→19:47)
--- NOTE | 2025-09-16 10:07 | PM.PN.1 ---
Subjective Subjective Interval history: Summary: This is an 89-year-old female with a medical history of MDS, chronic anemia COPD not oxygen dependent, CHF, hypertension who presents with shortness of breath. Per the patient report, over the last 2 to 3 days, the patient has been having increased shortness of breath and a productive cough with some greenish sputum. The patient also has increasing wheezing and lower extreme edema. The patient however denies any fever, chills, nausea, vomiting, diarrhea, chest pain, productive cough or syncope. In the emergency room, the patient was hemodynamically stable but was requiring 1 to 2 L oxygen per nasal cannula. Labs shows a WBC of 12.6 hemoglobin 6.8 sodium 122 creatinine 2.35 BNP of 10,300 troponin 0.01. Influenza and COVID RSV are negative. The patient was given IV Lasix along with 1 unit of packed red blood cells. IV dexamethasone milligram as well as DuoNebs were given. Rocephin and azithromycin given. 09/15: She is quite distracted today by her family visit. She says she is feeling better and has no other questions. The hemoglobin has risen from 6.8 up to 8.8 after the blood transfusion. The sodium level is improving at 124. The creatinine is also improving at 2.22. The magnesium level remains high at 2.5. She already follows up with Nephrology for her CKD. She lives with her family here in [facility]. 09/16: A little confused per her daughter. Received medication overnight to help sleep. S: She is feeling a little better, she denies any chest pain. Her cough has improved. Her cough is what brought her in. Her hemoglobin is improved after 1 unit of blood. O: T 97.2?, BP 136/67, pulse 66, respiration 18, SpO2 96% 2 L. NAD, alert and oriented. Fluent speech. Frail, comfortable. Lungs are clear, normal rate and effort. Heart is regular, no murmur gallop or rub. Abdomen is soft, non distended. Extremities are free of edema. IMAGING: CXR: Interval worsening of bilateral hilar fullness and left greater than right patchy airspace opacities with suggestion of small left greater than right pleural effusions, which is concerning for an infectious or inflammatory. Chest CT: Multifocal bronchopneumonia. Differential includes aspiration pneumonia, but is less likely given the non dependent distribution. Superimposed moderate pulmonary edema and small pleural effusions. A/P: 1. Acute on chronic heart failure exacerbation. Active. -Continue IV Lasix with strict I's and O and daily weight. -Monitor renal function. 2. Multifocal pneumonia. Active. -Continue IV azithromycin and ceftriaxone. 3. Possible COPD exacerbation. Active. -Continue Solu-Medrol and DuoNebs. Patient received IV Decadron in the ER. 4. Acute respiratory failure with hypoxemia. Likely due to above. Active. -Treat as above and wean oxygen as able. Currently patient is on 1 to 2 L of oxygen. 5. Hyponatremia. -Likely secondary to hypervolemia. -IV Lasix and monitor sodium level. 6. Acute on chronic anemia. Active. -Hemoglobin 8.6 at baseline. On admission at 6.9. Likely due to underlying MDS. -Patient got 1 unit packed red blood cell in the ER. In addition patient does have chronic renal insufficiency. -Will monitor for any bleeding and recheck hemoglobin after transfusion. 7. Hypertension. Monitor blood pressure and resume home medication accordingly. Stable. 8. Acute encephalopathy likely related to medications, new. PLAN: -monitor labs -gentle diuresis -can you steroids and antibiotics -avoid sedating medications -monitor sodium DVT prophylaxis SCDs. CODE STATUS full code. Exam Vital Signs (past 8 hours): - 09/16/25 05:08 09/16/25 09:03 09/16/25 09:10 Temperature 96.8 F L 97.2 F L Pulse Rate 69 66 64 Respiratory Rate 17 18 18 Blood Pressure 125/93 H 136/67 Pulse Oximetry 93 96 95 Oxygen Delivery Method Nasal Cannula Oxygen Flow Rate 2.5 2 2 Fraction of Inspired Oxygen 28 09/16/25 09:24 Temperature 97.2 F L Pulse Rate 66 Respiratory Rate 18 Blood Pressure 136/67 Pulse Oximetry 96 Oxygen Delivery Method Oxygen Flow Rate 2 Fraction of Inspired Oxygen Fraction of Inspired Oxygen 28 SaO2/FiO2 Ratio 339 Oxygen Delivery Method Nasal Cannula Oxygen Flow Rate 2 Objective Labs 09/16/25 06:20 09/16/25 06:20 Labs: Laboratory Results - last 24 hr 09/16/25 06:20 WBC 11.6 H RBC 2.76 L Hgb 8.7 L Hct 25.2 L MCV 91.2 MCH 31.5 MCHC 34.5 RDW 15.1 H Plt Count 405 H Neut % (Auto) 96.7 H Lymph % (Auto) 2.6 L [place] % (Auto) 0.6 L Eos % (Auto) 0.0 L Baso % (Auto) 0.1 Neut # (Auto) 85338 H Lymph # (Auto) 300 L [place] # (Auto) 100 Eos # (Auto) 0 Baso # (Auto) 0 Sodium 126 L Potassium 3.9 Chloride 86 L Carbon Dioxide 34 H BUN 52 H Creatinine 2.14 H Estimated GFR 22 L BUN/Creatinine Ratio 24.3 H Glucose 144 H Calcium 8.5 PFSH Medical History Chronic cough (~1985) Anemia Recurrent sinusitis History of recurrent ear infection Hearing loss (~2017) Cataracts, bilateral (~2018) CKD stage G4/A3, 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 Hypertension (~2018) MGUS (monoclonal gammopathy of unknown significance) COPD (chronic obstructive pulmonary disease) CKD (chronic kidney disease) stage 3, GFR 30-59 ml/min Surgical History Anesthesia History of colonoscopy (~2006) History of section History of nasal septoplasty (~2015) History of hysterectomy (~1981) History of exploratory laparotomy (~1984) Family History Father COPD (chronic obstructive pulmonary disease) Mother Cancer Sister Diabetes mellitus Grandfather Stroke Grandmother History of heart disease Grandfather History of heart disease Grandmother History of heart disease Social History household members: children Smoking Status: Never smoker alcohol intake: never Assessment & Plan Time-Based Coding :: [TOTAL MINUTES] spent with patient and on the chart (including review of chart, obtaining history, exam, reviewing outside data, placing orders, documenting exam and treatment plan, and counseling patient) on [DATE].
--- NOTE | 2025-09-16 10:38 | ST.IPDYTX ---
Visit Care Team Role Provider Type Harshal Aleman MD Family Provider Physician Primary Care Provider Specialty: Family Practice Address: [address] [place] [address], [facility] [place], [address] Email: Oscar Bonilla MD Emergency Provider Physician Referring Provider Specialty: Emergency Medicine Address: [address] [place] [address], [address] Phone: Fax: Email: [email or web address] Kurt Rodriguez MD Admit Provider Physician Attending Provider Specialty: Internal Medicine Address: [address] [place] [address], [address] Email: [email or web address] RECREATION CENTER DIRECTOR Dysphagia Treatment RECREATION CENTER DIRECTOR Dysphagia Treatment Start: 09/16/25 10:16 Freq: Status: Active Protocol: Document 09/16/25 10:16 SS (Rec: 09/16/25 10:38 SS [id number]) Dysphagia Treatment Session Time Visit Start Time 09:45 Visit Stop Time 10:15 Total Visit Minutes 30 Visit Information Visit Number 2 Setting Assessment Location Acute Care Visit Type Note Type Treatment Note Next Note Type Next Note Type Treatment Note Patient Information Identification Type Name,Date of Subjective Pt upright in bed upon RECREATION CENTER DIRECTOR arrival with daughter at Observations bedside. Pt's daughter reported pt had received a sleeping medication last night and seemed confused and disoriented. Pt had NC in place for supplemental oxygen (2L 95%). Treatment Liquids Trialed Thin (IDDSI 0) Solids Trialed Soft & Bite-sized (IDDSI 6) Administration Type Self-Feeding Pharyngeal Double Swallow,Effortful Swallow,Small Bites and Sips, Strategies Alternate Liquids/Solids Treatment Activities Education re: EMST-75 to increase cough strength and improve airway protection. Therapeutic trials of thin liquids and soft and bite-sized solids from breakfast tray with dynamic assessment for s/sx of dysphagia. Discussed pt progress with RN and MD and requested MD sign DME form for EMST-75 so it can be faxed to [employer]. The IDDSI Framework Protocol: IDDSI.1 Assessment Patient Response to Fair Treatment Rehab Potential Fair Assessment of RECREATION CENTER DIRECTOR reviewed recommended safe swallow precautions to Improvement reduce the risk of aspiration, including small bites/ sips, slow rate, alternating liquids and solids, upright positioning during PO intake, limiting distractions, and avoiding talking while eating. Additionally, discussed importance of using Effortful swallows and multiple swallows per bolus to optimize swallowing safety and efficiency. While pt is normally able to recall these precautions/strategies, she was less alert/oriented today, and had difficulty recalling to use them during intake. During intake, pt had significant difficulty recalling to use effortful swallows and multiple dry swallows to clear pharyngeal residue without additional cueing. When pt took single small sips of thin liquid without use of effortful swallows and multiple dry swallows, she demonstrated immediate coughing. Given results of prior MBSS, suspect penetration/aspiration of residual material remaining in the pharynx or that had entered the airway. However, given consistent cueing to use effortful swallows and multiple dry swallows when pt sensed globus sensation, no overt s/sx of aspiration were observed across trials of thin liquids and SB solids. As session progressed, she was able to recall to do so without additional cueing. At this time, recommend 1:1 supervision to ensure pt utilizes above strategies as pt is unable to recall to do so independently without cueing, despite that being her baseline. Plan to monitor clinical symptoms and if no improvement, strongly recommend repeat MBSS to objectively assess swallowing pathophysiology and further guide POC. Recommendations as follows: *1:1 supervision with all PO intake *No straws to control bolus flow/rate *Cueing to take single small sips/bites, use multiple swallows, and utilize a big squeeze *Fully upright during intake and for at least 30 minutes after *Oral care TID to minimize colonization or oral pathogens and further complications if material aspirated Pt and family expressed understanding of recommendations. RECREATION CENTER DIRECTOR discussed recommendations with RN and updated pt swallowing sign at bedside. signed DME prescription form for MEST-75 (RECREATION CENTER DIRECTOR to fax). Overall , pt with increased difficulty recalling recommended swallowing strategies and precautions independently and will benefit from supervision until overall mentation improves. RECREATION CENTER DIRECTOR to continue to follow up to asses diet tolerance and need for repeat MBSS. Recommendations Recommendations Continue Current Diet Liquids Order Thin (IDDSI 0) Diet Order Soft & Bite-sized (IDDSI 6) Medication Whole in Carrier Recommendations Additional Dietary No Straws Needs Aspiration Precautions Recommended Upright at 90 Degrees,Frequent Rest Periods,Small Bites Precautions /Sips,Effortful Swallow,Double Swallow,Liquids from Cup Treatment Plan Placement Home with Home Health,Outpatient Therapy Recommendation after Discharge Appropriate for Yes Continued Therapy Therapy See above. Recommendations Dysphagia Goals STG1. Patient will use compensatory meal strategies with 90% accuracy to increase safety with PO intake per pt report. STG2. Patient will complete EMST-75 training with correct technique at a prescribed resistance level, completing 5 sets of 5 repetitions with min verbal/ visual cues, to improve airway protection and cough strength. LTG1. Patient will safely tolerate least restrictive diet consistency to allow for safe consumption of daily meals without s/sx of aspiration. Referrals/Other Recommended Dietary Consult Referrals
--- NOTE | 2025-09-16 11:39 | DIET.CONS ---
Dietary Consultation Note Admission Date: 09/14/2025 21:22 Assessment: 89 y F admitted for CHF. Dietitian consulted for weight loss. Met with pt and daughter at bedside. Daughter reports pt is a little more confused than usual today, assessment done primarily with daughter. Reports seeing a dietitian years ago at [facility] and being recc'd a lower protein lower K+ diet to help manage CKD. 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 Since then, pt has been extremely limited in what she allows herself to eat. Pt has been seen by nephro. and other doctors multiple times who tell her to eat whatever she wants to help with her weight. However, pt continues to limit herself. Diet recall is just pasta, olive oil, store bought muffins and sometimes 1 egg or cereal in morning. NFPE with severe loss in temples and deltoids and moderate to severe loss in orbital fat pads Ht: 162.56 cm Wt: 55.111 kg BMI: 20.8 UBW: 49.8 kg on 09/23/24, 51.5 kg on 02/20/25, pt currently on lasix Last BM: 09/10/25 (09/14/25 23:30) MNA: 11 Karl Score: 17 Diet: 09/15/25 Lunch Dysphagia Diet Diet Modifications: Heart Healthy Food Texture: Level 6-Soft & Bite-sized Liquid Consistency: Level 0 - Thin Labs: RBC 2.76 X10^6/uL (4.0-5.2) L 09/16/25 06:20 Hgb 8.7 g/dL (12.0-16.0) L 09/16/25 06:20 Hct 25.2 % (36-46) L 09/16/25 06:20 Creatinine 2.14 mg/dL (0.52-1.04) H 09/16/25 06:20 Lactate 0.6 mmol/L (0.7-2.1) L 09/14/25 18:08 NT-Pro-B Natriuret Pep 06431 pg/mL (<450) H 09/14/25 18:08 Nutrition Diagnosis: Severe protein calorie malnutrition in context of chronic illness related to restrictive diet as evidenced by <60% of estimated energy protein intake for >3 months per diet recall, BMI underweight for age (20.9), severe muscle wasting in temples and deltoids, patient following overly restrictive renal diet Interventions: Spoke to pt about importance of getting more intake, pt willing to avoid restricting self while in hospital Suggested high protein pasta/tian pasta if pasta continues to be her only food intake and homemade muffins with added ingredients like fruits, eggs, healthy fats Provided educ to daughter that lab values for K+ are WNL right now and no need to restrict whole foods, rather focus on avoiding processed foods where potassium is added in by the filament tester as these are more highly absorbed than ones from plant based foods; pt also seeing nephro. monthly Provided educ on appropriate protein intake considering CHF, underweight BMI, CKD 4 Provided grocery list handout Provided information for getting OP dietitian referral and for telehealth visit and kidney classes at [facility]: 1650 kcals (30 kcals/kg per BMI) 45-50 g protein (.8 g/kg at normal weight for age of 60 kg per CKD4, CHF Monitoring/Evaluations: PO intakes Electronically Signed by: Emeli Borges 09/16/25 11:39 Clinical Dietitian [address] [address]
[2025-09-16] MEDS: AZITHROMYCIN 500 MG in DEXTROSE 5% IN WATER 250 ML 250 MG IV (21:39)
[2025-09-16] MEDS: MIRTAZAPINE 15 MG TABLET PO (21:41)
[2025-09-17] VITALS (10 sets, daily range): BP systolic 109–141; BP diastolic 59–88; PULSE 59–130; RESP 15–24; TEMP 36.2–36.9; O2SAT 93–99
[2025-09-17] MEDS: methylPREDNISolone succ 125 MG/2 ML VIAL 40 MG IV ×4 (00:58→18:52)
[2025-09-17] MEDS: MELATONIN 3 MG TABLET 6 MG PO ×2 (02:58→21:03)
[2025-09-17] MEDS: FUROSEMIDE 40 MG/4 ML VIAL IV ×3 (04:35→20:58)
[2025-09-17] MEDS: ALBUTEROL/IPRATROPIUM 3 ML AMPUL INH ×3 (07:55→18:32)
[2025-09-17] MEDS: SODIUM CHLORIDE 0.9% FLUSH 10 ML IV ×2 (08:25→21:04)
--- NOTE | 2025-09-17 09:02 | P.PN_ITS ---
Subjective Subjective Interval history: Summary: This is an 89-year-old female with a medical history of MDS, chronic anemia COPD not oxygen dependent, CHF, hypertension who presents with shortness of breath. Per the patient report, over the last 2 to 3 days, the patient has been having increased shortness of breath and a productive cough with some greenish sputum. The patient also has increasing wheezing and lower extreme edema. The patient however denies any fever, chills, nausea, vomiting, diarrhea, chest pain, productive cough or syncope. In the emergency room, the patient was hemodynamically stable but was requiring 1 to 2 L oxygen per nasal cannula. Labs shows a WBC of 12.6 hemoglobin 6.8 sodium 122 creatinine 2.35 BNP of 10,300 troponin 0.01. Influenza and COVID RSV are negative. The patient was given IV Lasix along with 1 unit of packed red blood cells. IV dexamethasone milligram as well as DuoNebs were given. Rocephin and azithromycin given. 09/15: She is quite distracted today by her family visit. She says she is feeling better and has no other questions. The hemoglobin has risen from 6.8 up to 8.8 after the blood transfusion. The sodium level is improving at 124. The creatinine is also improving at 2.22. The magnesium level remains high at 2.5. She already follows up with Nephrology for her CKD. She lives with her family here in [facility]. 09/16: A little confused per her daughter. Received medication overnight to help sleep. 09/17: Appears to be improving overall, more interactive and not confused. Less coughing. S: Comfortable on oxygen, no issues with pain or severe cough today. O: T 98.2, BP 141/71, pulse 65, respirations 17, SpO2 95% 3 L. NAD, alert and oriented. Fluent speech. Frail, comfortable. Interactive. Lungs are clear, normal rate and effort. Heart is regular, no murmur gallop or rub. Abdomen is soft, non distended. Extremities are free of edema. IMAGING: CXR: Interval worsening of bilateral hilar fullness and left greater than right patchy airspace opacities with suggestion of small left greater than right pleural effusions, which is concerning for an infectious or inflammatory. Chest CT: Multifocal bronchopneumonia. Differential includes aspiration pneumonia, but is less likely given the non dependent distribution. Superimposed moderate pulmonary edema and small pleural effusions. A/P: 1. Acute on chronic heart failure exacerbation. Improving. -Continue IV Lasix with strict I's and O and daily weight. -Monitor renal function. 2. Multifocal pneumonia. Improving. -Continue IV azithromycin and ceftriaxone. 3. Possible COPD exacerbation. Improving. -Continue Solu-Medrol and DuoNebs. Patient received IV Decadron in the ER. 4. Acute respiratory failure with hypoxemia. Active. -Treat as above and wean oxygen as able. Currently patient is on 1 to 2 L of oxygen. 5. Hyponatremia. Labs pending. -Likely secondary to hypervolemia. -IV Lasix and monitor sodium level. 6. Acute on chronic anemia. Active. -Hemoglobin 8.6 at baseline. On admission at 6.9. Likely due to underlying MDS. -Patient got 1 unit packed red blood cell in the ER. In addition patient does have chronic renal insufficiency. -Will monitor for any bleeding and recheck hemoglobin after transfusion. 7. Hypertension. Monitor blood pressure and resume home medication accordingly. Stable. 8. Acute encephalopathy likely related to medications, resolved. PLAN: -monitor labs (pending). -gentle diuresis -stop steroids and continue antibiotics (5 days). -avoid sedating medications -monitor sodium SUAD: 09/18. DVT prophylaxis SCDs. CODE STATUS full code. Exam Vital Signs (past 8 hours): - 09/17/25 05:00 09/17/25 07:37 09/17/25 07:44 Temperature 98.4 F 97.2 F L 98.2 F Pulse Rate 59 L 130 H 65 Respiratory Rate 15 17 17 Blood Pressure 118/59 L 134/88 141/71 H Pulse Oximetry 96 95 95 Oxygen Flow Rate 3 2 3 Fraction of Inspired Oxygen 28 SaO2/FiO2 Ratio 332 Oxygen Delivery Method Nasal Cannula Oxygen Flow Rate 3 Objective Labs 09/16/25 06:20 09/16/25 06:20 [facility] Medical History Chronic cough (~1985) Anemia Recurrent sinusitis History of recurrent ear infection Hearing loss (~2017) Cataracts, bilateral (~2018) CKD stage G4/A3, 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 Hypertension (~2018) MGUS (monoclonal gammopathy of unknown significance) COPD (chronic obstructive pulmonary disease) CKD (chronic kidney disease) stage 3, GFR 30-59 ml/min Surgical History Anesthesia History of colonoscopy (~2006) History of section History of nasal septoplasty (~2015) History of hysterectomy (~1981) History of exploratory laparotomy (~1984) Family History Father COPD (chronic obstructive pulmonary disease) Mother Cancer Sister Diabetes mellitus Grandfather Stroke Grandmother History of heart disease Grandfather History of heart disease Grandmother History of heart disease Social History household members: children Smoking Status: Never smoker alcohol intake: never Assessment & Plan Time-Based Coding :: [TOTAL MINUTES] spent with patient and on the chart (including review of chart, obtaining history, exam, reviewing outside data, placing orders, documenting exam and treatment plan, and counseling patient) on [DATE].
[2025-09-17 09:40] LABS: Add Manual Diff / Slide Review NO; Hematocrit 26.3 % (36-46); Hemoglobin 9.0 g/dL (12.0-16.0); Lymphocytes Absolute Auto 300 /uL (1100-4500); Mean Corpuscular HGB Conc 34.1 % (30-36); Mean Corpuscular Hemoglobin 31.2 PG (26-34); Mean Corpuscular Volume 91.5 fL (80-100); Platelet Count 424 X10^3/uL (150-400)
[2025-09-17 10:01] LABS: Blood Urea Nitrogen 61 mg/dL (7-17); Calcium 8.5 mg/dL (8.4-10.2); Carbon Dioxide 34 mmol/L (22-32); Chloride 83 mmol/L (98-107); Estimated Glomerular Filt Rate 20 mL/min (>60); Glucose 180 mg/dL (70-99); HEMOLYSIS < 15 (0-50); Potassium 4.6 mmol/L (3.4-5.1); Sodium 123 mmol/L (137-145)
[2025-09-17] MEDS: HEPARIN 5,000 UNIT/ML VIAL 5000 UNIT SUBCUT ×2 (12:00→21:02)
--- NOTE | 2025-09-17 14:19 | PT.IIE ---
Current Diagnoses Heart failure, unspecified (09/14/25) Surgical History (Last Reviewed 02/25/25 @ 08:47 by Mao Ball MD) Anesthesia History of section History of colonoscopy (~2006) History of exploratory laparotomy (~1984) History of hysterectomy (~1981) History of nasal septoplasty (~2015) Medical History (Last Reviewed 02/25/25 @ 08:47 by Mao Ball MD) Anemia Cataracts, bilateral (~2018) Chronic cough (~1985) CKD (chronic kidney disease) stage 3, GFR 30-59 ml/min CKD stage G4/A3, 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 COPD (chronic obstructive pulmonary disease) Hearing loss (~2017) History of recurrent ear infection Hypertension (~2018) MGUS (monoclonal gammopathy of unknown significance) Recurrent sinusitis Physical Therapy Inpatient Evaluation/Re-Eval M1 PT IP Prior Functional Status Start: 09/17/25 13:27 Freq: NEEDED Status: Active Protocol: Document 09/17/25 13:27 [facility] (Rec: 09/17/25 14:19 [facility] [id number]) Medical Review Prior Functional Status Medical History Yes Reviewed Diet/Fluid Regular Consistency Communication [place] Mobility and Gait didn't use anything at home until she had a fall 8-9 days ago and since then using a cane. Activities of Daily indep w/dressing and bathing. Helps with some cleaning Living and IADL's and some cooking Social History Household Members children Living Arrangements House Number of Floors ( One Floor Floors) Number of Stairs To 5 COOPER w/rail Enter/Railing? Home Environment Standard Height Toilet,Walk in Shower Home Equipment Front Wheel Walker,Four Wheel Walker,Straight Cane, Shower Seat without Backrest,Grab Bars In Shower Additional Social lives w/granddgt (30) and dgt and KYLER, typically on 2- History Comment 3L O2 at home M2 PT-IP Current Condition Start: 09/17/25 13:27 Freq: NEEDED Status: Active Protocol: Document 09/17/25 13:27 [facility] (Rec: 09/17/25 14:19 [facility] [id number]) Physical Therapy Current Condition Current Condition Evaluation Date 09/17/25 Treatment Diagnosis CHF exacerbation, weakness M3 PT-IP Subjective Start: 09/17/25 13:27 Freq: NEEDED Status: Active Protocol: Document 09/17/25 13:27 [facility] (Rec: 09/17/25 14:19 [facility] [id number]) Subjective Physical Therapy Visit Type Type Initial Evaluation Visit Start Time 13:45 Visit Stop Time 14:10 Number of FRUIT GRADING SUPERVISOR Visits 0 Physical Therapy Visit Comments Patient Goals get home Therapy Pain Assessment Pain Present Pain Present Denied Pain M4 PT-IP Mobility and Gait Start: 09/17/25 13:27 Freq: NEEDED Status: Active Protocol: Document 09/17/25 13:27 [facility] (Rec: 09/17/25 14:19 [facility] [id number]) PT-Bed Mobility Assessment Supine to Sit Supine to Sit Standby Assistance,Head of Bed Elevated Sit to Supine Sit to Supine Standby Assistance,Head of Bed Elevated Scooting Scooting to Edge of Standby Assistance Bed Scooting Up and Down Standby Assistance in Bed PT-Transfer Assessment Sit to and From Stand Sit to and from Standby Assistance,Use of Upper Extremities Stand Equipment Transfer Assistive Gait Belt,Front Wheeled Walker Device Orthotic/Prosthetic No Devices or Brace: Comments Mobility Comments min cues for sequence supine to sit and scoot to EOB. O2 91% and on 2 L O2. Sit to stand SBA to FWW w/cues for hand placement. Amb in room 35ft w/FWW w/occ mild LOB w/self recovery and slow gait. cues for breath in nose and out mouth. sit to supine SBA and cues for scoot up the bed. Adjusted bed to pt comfort and pt slid down so dependent w/METAL CASTING TRADES WORKER and PT scoot up bed when inclined. She was left w/METAL CASTING TRADES WORKER to set her back up. Encouraged pt to do leg lifts in bed Gait Assessment Gait Gait Assistance Contact Guard Assist Required: Distance (Feet) 35 Able to Maintain Yes Weight Bearing Status During Gait Assistive Devices Assistive Device Gait Belt,Front Wheeled Walker Gait Deviations General Gait Pattern Decreased Stride Length,Decreased Feet Clearance,Flexed Trunk Factors Limiting Gait Function Factors Limiting Decreased Activity Tolerance,Decreased Strength,Poor Gait Function Balance PT-Balance Assessment Sitting Balance and Reactions Static Sitting Good Balance Ability Dynamic Sitting Good Balance Ability Standing Balance and Reactions Static Standing Fair Balance Ability Dynamic Standing Poor Balance Ability Device Used FWW M5 PT-IP Objective Assessments Start: 09/17/25 13:27 Freq: NEEDED Status: Active Protocol: Document 09/17/25 13:27 [facility] (Rec: 09/17/25 14:19 [facility] [id number]) Orientation Orientation/Cognition Level of Alertness Alert Language Function Hard of Hearing Ability Memory Description No Deficits Noted Gross Range of Motion Lower Extremity ROM Assessment Within Functional Limits Strength Lower Extremity Strength Assessment Bilaterally Impaired Hip groslly 4/5 Knee 4/5 Ankle 4+/5 M6 PT-IP Treatment Start: 09/17/25 13:27 Freq: NEEDED Status: Active Protocol: Document 09/17/25 13:27 [facility] (Rec: 09/17/25 14:19 [facility] [id number]) Physical Therapy Treatment Education Education Provided Safety M7 PT-IP Assessment and Plan Start: 09/17/25 13:27 Freq: NEEDED Status: Active Protocol: Document 09/17/25 13:27 [facility] (Rec: 09/17/25 14:19 [facility] [id number]) PT Summary Assessment and Plan Potential Rehabilitation Good Potential Status of Condition Evolving at Evaluation Summary Impairments Strength,Balance,Bed Mobility,Transfers,Gait,Activity Tolerance Assessment Summary Pt presents w/COPD and CHF exacerbation and PNA with dec activity tolerance and weakness. She lives with supportive family and plans to return home after hospital stay. Due to recent weakness and fall and current dec activity tolerance, pt would benefit from when returning home to improve her strength and function to return to greater independence and safety. Goals Bed Mobility Goal Independent Transfer Goal Independent Gait Goal Independent Gait Distance 150ft w/LRAD Other Goals up/down 5 stairs w/rail SBA Days to Meet Goals 10 Frequency of Treatment Frequency Of Once a Day Treatment Treatment Plan Physical Therapy Bed Mobility Training,Transfer Training,Gait Training, Treatment Plan Therapeutic Exercise,Balance Retraining,Discharge Planning,Neuromuscular Re-ed,Coordination Retraining, Manual Therapy Weight Bearing Status Weight Bearing Full Weight Bearing Status Recommendations To Nursing Amount of Assist 1 Person Assist Needed Discharge Recommendations PT Discharge Home with Assistance,Home Health Recommendations Transportation Needs Private Vehicle at Discharge - PT assist 1
--- NOTE | 2025-09-17 14:28 | CM.DANOTE ---
Initial DCP Assessment Visit Note Reviewed EMR and team rounds for pt's medical status and updates. Went to meet with pt, however she was sleeping at the time of this visit. Called and left a message for her dtr re: wanting to connect and discuss d/c preferences and needs. Pt resides mostly independently with her dtr, son-in-law, and adult granddaughter. Pt's dtr will be able to transport pt at d/c. Payor: Medicare PCP: Dr. Aleman Pt is a 89 year-old F with a PMH of COPD, respiratory failure, and CHF with c/o worsening SOB and cough for the last 2-[address] of the chest was positive for multifocal pneumonia, pulmonary edema, and small pleural effusions. Pt was strted on IV fluids, IV antibiotics, and IV dexamethasone, and admitted to the floor for further tx and symptom management. Per PT eval, pt will need Home Health PT/OT at discharge. DCP will plan to call family tomorrow and discuss their HH preferences, and make referral for care post-d/c. Monitoring for any further evolving needs. Discharge Planning/Care Management CM Discharge Assessment Start: 09/14/25 23:30 Freq: Status: Active Protocol: Document 09/17/25 14:25 [facility] (Rec: 09/17/25 14:28 [facility] [id number]) Discharge Planning Assessment Assigned Discharge MITCHEL Ashraf Director Of Maternity Services Provider Dr. Craft Insurance Medicare Advance Directives? No Advance Directives No on File History Provided By Medical Record Expected Length of 3 Stay Has Patient been No admitted in last 30 days? Prior Living House Arrangements Household Members family,children Type of Relies on Others transporation used prior to admit Independent with ADL No: modified independent 's Is patient alert and Yes oriented? Needs Assistance Home Chores / Shopping With Comment N/A DME Already Rented / Bath Bench,Elevated Toilet Seat,FWW / Walker,Cane Owned Comment 4WW Patient/Family Home with Home Health Preference Comment Home w/family , discuss HH when patient's family is present. Discharge Plan Home with Home Health Transportation Dtr Arrangement If patient plan is No home with home health: Has signed face to face form been completed? Medicare Choice List No Provided Comment Pending. Left a message with family re: return call to discuss d/c needs tomorrow. Review Status In Process Please Provide Date 09/17/25 Initial DC Assessment Was Performed
--- NOTE | 2025-09-17 15:58 | DIET.PN1 ---
Dietary Progress Note Assessment: Improving PO intakes, 75-100%. DFM reviewed for meal composition. Ordering more food than what was reported that she did at home. Will continue to monitor. Ht: 162.56 cm Wt: 49 kg BMI: 20.8 Last BM: 09/10/25 (09/14/25 23:30) MNA: 11 Karl Score: 17 Diet: 09/15/25 Lunch Dysphagia Diet Diet Modifications: Heart Healthy Food Texture: Level 6-Soft & Bite-sized Liquid Consistency: Level 0 - Thin Nutrition Percent Meal Consumed 100% 09/17/25 14:16 Percent Meal Consumed 100% 09/17/25 10:16 Percent Meal Consumed 75% 09/16/25 18:58 Labs: RBC 2.87 X10^6/uL (4.0-5.2) L 09/17/25 09:25 Hgb 9.0 g/dL (12.0-16.0) L 09/17/25 09:25 Hct 26.3 % (36-46) L 09/17/25 09:25 Creatinine 2.28 mg/dL (0.52-1.04) H 09/17/25 09:25 Lactate 0.6 mmol/L (0.7-2.1) L 09/14/25 18:08 NT-Pro-B Natriuret Pep 62815 pg/mL (<450) H 09/14/25 18:08 Electronically Signed by: Emeli Borges 09/17/25 15:58 Clinical Dietitian [address] [address]
--- NOTE | 2025-09-17 15:59 | ST.IPDYTX ---
Visit Care Team Role Provider Type Harshal Aleman MD Family Provider Physician Primary Care Provider Specialty: Family Practice Address: [address] [place] [address], [id number] Email: Oscar Bonilla MD Emergency Provider Physician Referring Provider Specialty: Emergency Medicine Address: [address] [place] [address], [address] Phone: Fax: Email: [email or web address] Kurt Rodriguez MD Admit Provider Physician Attending Provider Specialty: Internal Medicine Address: [address] [place] [address], [id number] Email: [email or web address] MILLINERY BLOCKER Dysphagia Treatment MILLINERY BLOCKER Dysphagia Treatment Start: 09/16/25 10:16 Freq: Status: Active Protocol: Document 09/17/25 15:47 SS (Rec: 09/17/25 15:59 SS Desktop) Dysphagia Treatment Session Time Visit Start Time 15:10 Visit Stop Time 15:35 Total Visit Minutes 25 Visit Information Visit Number 3 Insurance Medicare (kx modifier after x19 visits) Information Setting Assessment Location Acute Care Visit Type Note Type Treatment Note Next Note Type Next Note Type Treatment Note Patient Information Identification Type Name,Date of Subjective Pt upright in bed upon MILLINERY BLOCKER arrival. Pt more alert today Observations and seems to be back to baseline. Pt had NC in place for supplemental oxygen (2L 95%). Treatment Liquids Trialed Thin (IDDSI 0) Solids Trialed Purred (IDDSI 4) Administration Type Self-Feeding Pharyngeal Double Swallow,Effortful Swallow,Small Bites and Sips, Strategies Alternate Liquids/Solids Treatment Activities Therapeutic trials of thin liquids and puree solids with dynamic assessment for s/sx of dysphagia. Continued implementing effortful swallows and use of multiple swallows to improve tongue to palate contact, base of tongue retraction, hyolaryngeal elevation and excursion, pharyngeal constriction, and opening of the upper esophageal sphincter for improved swallowing safety and efficiency. The IDDSI Framework Protocol: IDDSI.1 Assessment Patient Response to Good Treatment Rehab Potential Good Assessment of MILLINERY BLOCKER reviewed recommended safe swallow precautions to Improvement reduce the risk of aspiration, including small bites/ sips, slow rate, alternating liquids and solids, upright positioning during PO intake, limiting distractions, and avoiding talking while eating. Pt able to recall these strategies well today. Assisted pt with completing oral care. Reviewed education re: importance of consistent oral care to reduce colonization of oral pathogens and developments of PNA if material is aspirated. During intake of thin liquids and puree, pt was able to use effortful swallows and multiple dry swallows independently following initial reminder. No overt s/sx of laryngeal penetration/aspiration across intake today. Recommended pt continue to utilize effortful swallows and multiple swallows to clear pharyngeal residue with all intake as these were effective strategies during MBSS. Pt agreeable. EMST-75 has now been shipped and family plans to bring it in as soon as it arrives. MILLINERY BLOCKER to follow up for 1-2 additional sessions to assess diet tolerance, use of recommended strategies, and initiation of EMST-75 targeting cough strength and airway protection. Recommendations Recommendations Continue Current Diet Liquids Order Thin (IDDSI 0) Diet Order Soft & Bite-sized (IDDSI 6) Medication Whole in Carrier Recommendations Additional Dietary No Straws Needs Aspiration Precautions Recommended Upright at 90 Degrees,Frequent Rest Periods,Small Bites Precautions /Sips,Effortful Swallow,Double Swallow,Liquids from Cup Treatment Plan Placement Home with Home Health,Outpatient Therapy Recommendation after Discharge Appropriate for Yes Continued Therapy Therapy See above. Recommendations Dysphagia Goals STG1. Patient will use compensatory meal strategies with 90% accuracy to increase safety with PO intake per pt report. STG2. Patient will complete EMST-75 training with correct technique at a prescribed resistance level, completing 5 sets of 5 repetitions with min verbal/ visual cues, to improve airway protection and cough strength. LTG1. Patient will safely tolerate least restrictive diet consistency to allow for safe consumption of daily meals without s/sx of aspiration. Referrals/Other Recommended Dietary Consult Referrals
[2025-09-17] MEDS: ACETAMINOPHEN 325 MG TABLET 650 MG PO (21:03)
[2025-09-17] MEDS: MIRTAZAPINE 15 MG TABLET PO (21:04)
[2025-09-17] MEDS: CALCIUM CARBONATE 500 MG TAB 1000 MG PO (21:52)
[2025-09-18] VITALS (9 sets, daily range): BP systolic 110–157; BP diastolic 51–73; PULSE 56–68; RESP 16–20; TEMP 36.3–36.9; O2SAT 94–100
[2025-09-18] MEDS: methylPREDNISolone succ 125 MG/2 ML VIAL 40 MG IV ×3 (01:10→13:12)
[2025-09-18] MEDS: FUROSEMIDE 40 MG/4 ML VIAL IV ×3 (03:47→21:07)
[2025-09-18] MEDS: SODIUM CHLORIDE 0.9% FLUSH 10 ML IV ×3 (03:48→21:08)
[2025-09-18 05:37] LABS: Add Manual Diff / Slide Review NO; Hematocrit 23.2 % (36-46); Hemoglobin 7.9 g/dL (12.0-16.0); Lymphocytes Absolute Auto 300 /uL (1100-4500); Mean Corpuscular HGB Conc 34.0 % (30-36); Mean Corpuscular Hemoglobin 31.0 PG (26-34); Mean Corpuscular Volume 91.1 fL (80-100); Platelet Count 378 X10^3/uL (150-400)
[2025-09-18 05:49] LABS: Blood Urea Nitrogen 69 mg/dL (7-17); Calcium 8.5 mg/dL (8.4-10.2); Carbon Dioxide 35 mmol/L (22-32); Chloride 85 mmol/L (98-107); Estimated Glomerular Filt Rate 20 mL/min (>60); Glucose 148 mg/dL (70-99); HEMOLYSIS < 15 (0-50); Potassium 4.7 mmol/L (3.4-5.1); Sodium 123 mmol/L (137-145)
[2025-09-18] MEDS: ALBUTEROL/IPRATROPIUM 3 ML AMPUL INH ×3 (07:31→19:50)
[2025-09-18] MEDS: HEPARIN 5,000 UNIT/ML VIAL 5000 UNIT SUBCUT ×2 (09:14→21:07)
--- NOTE | 2025-09-18 11:20 | PC.NURSE ---
Day note: Patient awake and alert, sitting up in bed. Continue on O2 via NC, on cont pulse ox 95%. Excellent PO intake, dysphagia precautions maintained. Daughter Meri updated via phone this am. Patient GRAYLING. Able to communicate needs and calls for staff assitance. Report given to Jason Edwards RN @ [phone]
--- NOTE | 2025-09-18 12:13 | CM.DPC ---
DCP Cont. Reviewed EMR and team rounds for pt's medical status and updates. Per Hospitalist, pt will likely need 1-more day prior to being medically stable for home d/c. Spoke to her dtr, who would like [facility] prior to d/c. Sent in F/F and clincals for [facility] to review.
--- NOTE | 2025-09-18 12:35 | ST.IPDYTX ---
Visit Care Team Role Provider Type Harshal Aleman MD Family Provider Physician Primary Care Provider Specialty: Family Practice Address: [address] [place] [address], [address] Email: Oscar Bonilla MD Emergency Provider Physician Referring Provider Specialty: Emergency Medicine Address: [address] [place] [address], [address] Phone: Fax: Email: [email or web address] Kurt Rodriguez MD Admit Provider Physician Attending Provider Specialty: Internal Medicine Address: [address] [place] [address], [address] Email: [email or web address] SHIPPING SUPERVISOR Dysphagia Treatment SHIPPING SUPERVISOR Dysphagia Treatment Start: 09/16/25 10:16 Freq: Status: Active Protocol: Document 09/18/25 12:30 [facility] (Rec: 09/18/25 12:35 [facility] Desktop) Dysphagia Treatment Session Time Visit Start Time 11:10 Visit Stop Time 11:25 Total Visit Minutes 15 Visit Information Visit Number 4 Insurance Medicare (kx modifier after x19 visits) Information Setting Assessment Location Acute Care Visit Type Note Type Treatment Note Next Note Type Next Note Type Treatment Note Patient Information Identification Type Name,Date of Subjective Pt upright in bed upon SHIPPING SUPERVISOR arrival. Pt had NC in place Observations for supplemental oxygen (2L 95%). Treatment Liquids Trialed Thin (IDDSI 0) Solids Trialed Soft & Bite-sized (IDDSI 6),Regular (IDDSI 7) Administration Type Self-Feeding Pharyngeal Double Swallow,Effortful Swallow,Small Bites and Sips, Strategies Alternate Liquids/Solids Treatment Activities Therapeutic trials of thin liquids and soft/regular solids with dynamic assessment for s/sx of dysphagia. Continued implementing effortful swallows and use of multiple swallows to improve tongue to palate contact, base of tongue retraction, hyolaryngeal elevation and excursion, pharyngeal constriction, and opening of the upper esophageal sphincter for improved swallowing safety and efficiency. The IDDSI Framework Protocol: IDDSI.1 Assessment Patient Response to Good Treatment Rehab Potential Good Assessment of SHIPPING SUPERVISOR reviewed recommended safe swallow precautions to Improvement reduce the risk of aspiration, including small bites/ sips, slow rate, alternating liquids and solids, upright positioning during PO intake, limiting distractions, and avoiding talking while eating. Pt able to recall these strategies well today. Reviewed education re: importance of consistent oral care to reduce colonization of oral pathogens and developments of PNA if material is aspirated. During intake of thin liquids and soft solids, pt was able to use effortful swallows and multiple dry swallows independently following initial reminder. No overt s/sx of laryngeal penetration/aspiration across intake today. For regular solid, consisting of a peanut butter and jelly sandwich, Pt took one small bite resulting in prolonged mastication (~5 minutes) requiring liquid wash. Recommended pt continue to utilize effortful swallows and multiple swallows to clear pharyngeal residue with all intake as these were effective strategies during MBSS. Pt agreeable. EMST-75 has now been shipped and family plans to bring it in as soon as it arrives. SHIPPING SUPERVISOR to follow up for 1-2 additional sessions to assess diet tolerance, use of recommended strategies, and initiation of EMST-75 targeting cough strength and airway protection. Recommendations Recommendations Continue Current Diet Liquids Order Thin (IDDSI 0) Diet Order Soft & Bite-sized (IDDSI 6) Medication Whole in Carrier Recommendations Additional Dietary No Straws Needs Aspiration Precautions Recommended Upright at 90 Degrees,Frequent Rest Periods,Small Bites Precautions /Sips,Effortful Swallow,Double Swallow,Liquids from Cup Treatment Plan Placement Home with Home Health,Outpatient Therapy Recommendation after Discharge Appropriate for Yes Continued Therapy Therapy See above. Recommendations Dysphagia Goals STG1. Patient will use compensatory meal strategies with 90% accuracy to increase safety with PO intake per pt report. STG2. Patient will complete EMST-75 training with correct technique at a prescribed resistance level, completing 5 sets of 5 repetitions with min verbal/ visual cues, to improve airway protection and cough strength. LTG1. Patient will safely tolerate least restrictive diet consistency to allow for safe consumption of daily meals without s/sx of aspiration. Referrals/Other Recommended Dietary Consult Referrals
--- NOTE | 2025-09-18 14:09 | PM.PN.1 ---
Subjective Subjective Date Patient Seen: 09/18/25 Interval history: This is an 89-year-old female with a medical history of MDS, chronic anemia COPD not oxygen dependent, CHF, hypertension who presents with shortness of breath. Per the patient report, over the last 2 to 3 days, the patient has been having increased shortness of breath and a productive cough with some greenish sputum. The patient also has increasing wheezing and lower extreme edema. The patient however denies any fever, chills, nausea, vomiting, diarrhea, chest pain, productive cough or syncope. In the emergency room, the patient was hemodynamically stable but was requiring 1 to 2 L oxygen per nasal cannula. Labs shows a WBC of 12.6 hemoglobin 6.8 sodium 122 creatinine 2.35 BNP of 10,300 troponin 0.01. Influenza and COVID RSV are negative. The patient was given IV Lasix along with 1 unit of packed red blood cells. IV dexamethasone milligram as well as DuoNebs were given. Rocephin and azithromycin given. 09/15: She is quite distracted today by her family visit. She says she is feeling better and has no other questions. The hemoglobin has risen from 6.8 up to 8.8 after the blood transfusion. The sodium level is improving at 124. The creatinine is also improving at 2.22. The magnesium level remains high at 2.5. She already follows up with Nephrology for her CKD. She lives with her family here in [facility]. 09/16: A little confused per her daughter. Received medication overnight to help sleep. 09/17: Appears to be improving overall, more interactive and not confused. Less coughing. 09/18: Comfortable on oxygen, no issues with pain or severe cough today. Actively working with physical therapy. Apparently was able to walk 35 ft yesterday but does not look quite that stable today. Sodium remains low at 123 with a creatinine of 2.24. NAD, alert and oriented. Fluent speech. Frail, comfortable. Interactive. Lungs are clear, normal rate and effort. Heart is regular, no murmur gallop or rub. Abdomen is soft, non distended. Extremities are free of edema. Neuro: Standing with physical therapy but looks very weak. IMAGING: CXR: Interval worsening of bilateral hilar fullness and left greater than right patchy airspace opacities with suggestion of small left greater than right pleural effusions, which is concerning for an infectious or inflammatory. Chest CT: Multifocal bronchopneumonia. Differential includes aspiration pneumonia, but is less likely given the non dependent distribution. Superimposed moderate pulmonary edema and small pleural effusions. A/P: 1. Acute on chronic heart failure exacerbation. Improving. -Continue IV Lasix with strict I's and O and daily weight. -Monitor renal function. 2. Multifocal pneumonia. Improving. -Continue IV ceftriaxone. Completed Azithromycin course. 3. Possible COPD exacerbation. Improving. -Continue Solu-Medrol and DuoNebs. Patient received IV Decadron in the ER. -Decrease Solumedrol to 40 mg q12h on 09/18. 4. Acute respiratory failure with hypoxemia. Active. -Treat as above and wean oxygen as able. Currently patient is on 1 to 2 L of oxygen. 5. Hyponatremia. Stable at 123. -Likely secondary to hypervolemia. -IV Lasix and monitor sodium level. 6. Acute on chronic anemia. Active. -Hemoglobin 8.6 at baseline. On admission at 6.9. Likely due to underlying MDS. -Patient got 1 unit packed red blood cell in the ER. In addition patient does have chronic renal insufficiency. -Will monitor for any bleeding and recheck hemoglobin after transfusion. 7. Hypertension. Monitor blood pressure and resume home medication accordingly. Stable. 8. Acute encephalopathy likely related to medications, resolved. 9. CKD PLAN: -monitor labs -gentle diuresis -decrease Solumedrol to q12h, continue ceftriaxone. -avoid sedating medications -monitor sodium -PT for discharge SUAD: 09/19 to SNF or home? DVT prophylaxis SCDs. CODE STATUS full code. Exam Vital Signs (past 8 hours): - 09/18/25 07:31 09/18/25 08:00 09/18/25 08:00 Temperature 98.5 F Pulse Rate 67 68 Respiratory Rate 18 17 Blood Pressure 157/73 H Pulse Oximetry 99 94 Oxygen Delivery Method Nasal Cannula Nasal Cannula Oxygen Flow Rate 2 09/18/25 09:16 09/18/25 13:15 Temperature Pulse Rate 68 67 Respiratory Rate 20 Blood Pressure 157/73 H Pulse Oximetry 98 Oxygen Delivery Method Nasal Cannula Oxygen Flow Rate 3 Fraction of Inspired Oxygen 28 SaO2/FiO2 Ratio 335 Oxygen Delivery Method Nasal Cannula Oxygen Flow Rate 3 Objective Labs 09/18/25 05:01 09/18/25 05:01 Labs: Laboratory Results - last 24 hr 09/18/25 05:01 WBC 11.7 H RBC 2.55 L Hgb 7.9 L Hct 23.2 L MCV 91.1 MCH 31.0 MCHC 34.0 RDW 14.5 Plt Count 378 Neut % (Auto) 96.5 H Lymph % (Auto) 2.3 L [place] % (Auto) 1.2 L Eos % (Auto) 0.0 L Baso % (Auto) 0.0 Neut # (Auto) 25733 H Lymph # (Auto) 300 L [place] # (Auto) 100 Eos # (Auto) 0 Baso # (Auto) 0 Sodium 123 L Potassium 4.7 Chloride 85 L Carbon Dioxide 35 H BUN 69 H Creatinine 2.24 H Estimated GFR 20 L BUN/Creatinine Ratio 30.8 H Glucose 148 H Calcium 8.5 PFSH Medical History Chronic cough (~1985) Anemia Recurrent sinusitis History of recurrent ear infection Hearing loss (~2017) Cataracts, bilateral (~2018) CKD stage G4/A3, 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 Hypertension (~2018) MGUS (monoclonal gammopathy of unknown significance) COPD (chronic obstructive pulmonary disease) CKD (chronic kidney disease) stage 3, GFR 30-59 ml/min Surgical History Anesthesia History of colonoscopy (~2006) History of section History of nasal septoplasty (~2015) History of hysterectomy (~1981) History of exploratory laparotomy (~1984) Family History Father COPD (chronic obstructive pulmonary disease) Mother Cancer Sister Diabetes mellitus Grandfather Stroke Grandmother History of heart disease Grandfather History of heart disease Grandmother History of heart disease Social History household members: family and children Smoking Status: Never smoker alcohol intake: never Assessment & Plan Time-Based Coding :: [TOTAL MINUTES] spent with patient and on the chart (including review of chart, obtaining history, exam, reviewing outside data, placing orders, documenting exam and treatment plan, and counseling patient) on [DATE].
--- NOTE | 2025-09-18 14:47 | PT.IPTN ---
Current Diagnoses Heart failure, unspecified (09/14/25) Physical Therapy Treatment Note M2 PT-IP Current Condition Start: 09/17/25 13:27 Freq: NEEDED Status: Active Protocol: Document 09/17/25 13:27 [facility] (Rec: 09/17/25 14:19 [facility] [id number]) Physical Therapy Current Condition Current Condition Evaluation Date 09/17/25 Treatment Diagnosis CHF exacerbation, weakness M3 PT-IP Subjective Start: 09/17/25 13:27 Freq: NEEDED Status: Active Protocol: Document 09/18/25 15:07 NW (Rec: 09/18/25 15:16 NW [id number]) Subjective Physical Therapy Visit Type Type Treatment Note Visit Start Time 14:14 Visit Stop Time 14:47 Physical Therapy Visit Comments Patient Comments Pt is found visiting with granddaughter supine. Pt notes being very fatigued today compared to previous day. Patient Goals Go home M4 PT-IP Mobility and Gait Start: 09/17/25 13:27 Freq: NEEDED Status: Active Protocol: Document 09/18/25 15:07 NW (Rec: 09/18/25 15:16 NW [id number]) PT-Bed Mobility Assessment Rolling Level of Assist Contact Guard Assistance Supine to Sit Supine to Sit Contact Guard Assistance Sit to Supine Sit to Supine Minimal Assistance Scooting Scooting to Edge of Maximum Assistance Bed PT-Transfer Assessment Sit to and From Stand Sit to and from Contact Guard Assistance Stand Equipment Transfer Assistive Gait Belt,Front Wheeled Walker Device Comments Mobility Comments Secondary to fatigue pt is able to lateral side step to R at edge of bed. STS performed x 3 throughout session from edge of bed. Gait Assessment Comments Gait Comments Pt self selects to not ambulate today secondary to high fatigue. MD present to see fatigue. Stair Climbing Assessment Comments Stair Climbing Unable at this time. Comments PT-Balance Assessment Sitting Balance and Reactions Static Sitting Normal Balance Ability Dynamic Sitting Good Balance Ability Standing Balance and Reactions Static Standing Fair Balance Ability Dynamic Standing Poor Balance Ability Device Used FWW M5 PT-IP Objective Assessments Start: 09/17/25 13:27 Freq: NEEDED Status: Active Protocol: Document 09/17/25 13:27 [facility] (Rec: 09/17/25 14:19 [facility] [id number]) Orientation Orientation/Cognition Level of Alertness Alert Language Function Hard of Hearing Ability Memory Description No Deficits Noted Gross Range of Motion Lower Extremity ROM Assessment Within Functional Limits Strength Lower Extremity Strength Assessment Bilaterally Impaired Hip groslly 4/5 Knee 4/5 Ankle 4+/5 M6 PT-IP Treatment Start: 09/17/25 13:27 Freq: NEEDED Status: Active Protocol: Document 09/18/25 15:07 NW (Rec: 09/18/25 15:16 NW [id number]) Physical Therapy Treatment Exercises Exercises Heel Slides,Straight Leg Raises,Supine Hip Abduction Education Education Provided Safety Other Treatments Other Treatment Education given to pt regarding with increase arousal Performed to spend time up in chair out of bed. supine bed exercises: 2 x 10 M7 PT-IP Assessment and Plan Start: 09/17/25 13:27 Freq: NEEDED Status: Active Protocol: Document 09/18/25 15:07 NW (Rec: 09/18/25 15:16 NW [id number]) PT Summary Assessment and Plan Potential Rehabilitation Good Potential Status of Condition Evolving at Evaluation Summary Impairments Strength,Balance,Bed Mobility,Transfers,Gait,Activity Tolerance Assessment Summary Pt presents w/COPD and CHF exacerbation and PNA with dec activity tolerance and weakness. Pt has increased fatigue today compared to prior day and is not agreeable for ambulation. Pt has family present almost 30/04 to assist as needed and grand daughter is present to see level of assist required. Pt has lower BP of 121 /54 today and decreased hgb to possibly account for the increased fatigue. Pt does have 5 steps to enter home and should trial with PT prior to discharge. Still recommending home health secondary to good family support and how pt presented on evaluation. Goals Bed Mobility Goal Independent Transfer Goal Independent Gait Goal Independent Gait Distance 150ft w/LRAD Other Goals up/down 5 stairs w/rail SBA Days to Meet Goals 10 Frequency of Treatment Frequency Of Once a Day Treatment Treatment Plan Physical Therapy Bed Mobility Training,Transfer Training,Gait Training, Treatment Plan Therapeutic Exercise,Balance Retraining,Discharge Planning,Neuromuscular Re-ed,Coordination Retraining, Manual Therapy Recommendations To Nursing Amount of Assist 1 Person Assist Needed Discharge Recommendations PT Discharge Home with Assistance,Home Health Recommendations Transportation Needs Private Vehicle at Discharge - PT assist 1
[2025-09-18] MEDS: MELATONIN 3 MG TABLET 6 MG PO (21:07)
[2025-09-18] MEDS: MIRTAZAPINE 15 MG TABLET PO (21:08)
[2025-09-19] VITALS (8 sets, daily range): BP systolic 113–136; BP diastolic 47–74; PULSE 59–99; RESP 15–18; TEMP 36.2–36.6; O2SAT 96–99
[2025-09-19] MEDS: methylPREDNISolone succ 40 MG/ML VIAL IV ×2 (00:51→12:15)
[2025-09-19] MEDS: FUROSEMIDE 40 MG/4 ML VIAL IV ×3 (03:48→21:00)
[2025-09-19 05:59] LABS: Add Manual Diff / Slide Review NO; Hematocrit 24.3 % (36-46); Hemoglobin 8.2 g/dL (12.0-16.0); Lymphocytes Absolute Auto 300 /uL (1100-4500); Mean Corpuscular HGB Conc 33.7 % (30-36); Mean Corpuscular Hemoglobin 30.9 PG (26-34); Mean Corpuscular Volume 91.8 fL (80-100); Platelet Count 374 X10^3/uL (150-400)
[2025-09-19 06:15] LABS: Blood Urea Nitrogen 75 mg/dL (7-17); Calcium 8.3 mg/dL (8.4-10.2); Carbon Dioxide 36 mmol/L (22-32); Chloride 85 mmol/L (98-107); Estimated Glomerular Filt Rate 21 mL/min (>60); Glucose 111 mg/dL (70-99); HEMOLYSIS < 15 (0-50); Potassium 4.7 mmol/L (3.4-5.1); Sodium 124 mmol/L (137-145)
[2025-09-19] MEDS: ALBUTEROL/IPRATROPIUM 3 ML AMPUL INH ×2 (08:36→19:54)
[2025-09-19] MEDS: HEPARIN 5,000 UNIT/ML VIAL 5000 UNIT SUBCUT ×2 (09:20→21:00)
[2025-09-19] MEDS: SODIUM CHLORIDE 0.9% FLUSH 10 ML IV ×2 (09:24→21:16)
--- NOTE | 2025-09-19 10:50 | PT.IPTN ---
Current Diagnoses Heart failure, unspecified (09/14/25) Physical Therapy Treatment Note M2 PT-IP Current Condition Start: 09/17/25 13:27 Freq: NEEDED Status: Active Protocol: Document 09/19/25 10:31 SP (Rec: 09/19/25 11:21 SP Laptop) Physical Therapy Current Condition Current Condition Evaluation Date 09/17/25 Treatment Diagnosis CHF exacerbation, weakness M3 PT-IP Subjective Start: 09/17/25 13:27 Freq: NEEDED Status: Active Protocol: Document 09/19/25 10:31 SP (Rec: 09/19/25 11:21 SP Laptop) Subjective Physical Therapy Visit Type Type Treatment Note Visit Start Time 10:31 Visit Stop Time 10:50 Notes Vitals BP 121/ 58 HR 61 SaO2 97% on 3L, maintained high 90s on 3L during mobility. Number of MAINTENANCE TEAM LEADER Visits 1 Physical Therapy Visit Comments Patient Comments Pt agreeable to working with MAINTENANCE TEAM LEADER. Patient Goals Wants to go home with family. M4 PT-IP Mobility and Gait Start: 09/17/25 13:27 Freq: NEEDED Status: Active Protocol: Document 09/19/25 10:31 SP (Rec: 09/19/25 11:21 SP Laptop) PT-Bed Mobility Assessment Supine to Sit Supine to Sit Standby Assistance,1 Person Assistance,Head of Bed Elevated Scooting Scooting to Edge of Standby Assistance Bed PT-Transfer Assessment Sit to and From Stand Sit to and from Contact Guard Assistance,1 Person Assistance,Use of Stand Upper Extremities Equipment Transfer Assistive Gait Belt,Front Wheeled Walker Device Orthotic/Prosthetic No Devices or Brace: Transfers Transfer Destination Chair Transfer Technique pt ambulated with FWW Transfer Ability Level of Assist Standby Assistance,Contact Guard Assistance,1 Person Assistance,Use of Upper Extremities Comments Mobility Comments Pt increased endurance today, SBA sup<>sit, scoot to EOB herself, heavily BUE use. STS redirected to push from bed CGA, SSPT bed>chair, cues reach back slow sit. STS SBA pushing from chair further distance gait around room, CGA/close SBA with fWW, MAINTENANCE TEAM LEADER managed O2 and IV pole. Cues for upright posture. Pt required seated rest for breath recovery. Able to complete 3 portable step mgt use BHR of FWW initially then able R HR of FWW and PET CARE ASSISTANT on L while MAINTENANCE TEAM LEADER stabilized FWW x3 reps total., cues for upright posture CGA, increased to Min A 2-3 reps due to PET CARE ASSISTANT and tiring. Pt returned to chair, instructed BLEs ex seated toe raises, marching and LAQ with education for home work periodically when up in chair for strength continuation. Pt had call light and all needs upright in chair before left, chair alarm donned due to fall risk at this time. Gait Assessment Gait Gait Assistance Contact Guard Assist Required: Distance (Feet) 30 Able to Maintain Yes Weight Bearing Status During Gait Assistive Devices Assistive Device Gait Belt,Front Wheeled Walker Orthotic/Prosthetic No Devices or Brace: Gait Deviations General Gait Pattern Decreased Stride Length,Decreased Feet Clearance,Flexed Trunk Factors Limiting Gait Function Factors Limiting Decreased Activity Tolerance,Decreased Strength,Poor Gait Function Safety Awareness Comments Gait Comments See mobility comments. Stair Climbing Assessment Evaluation Level of Assist On Contact Guard Assistance,Minimal Assistance,1 Person Stairs Assistance Devices Stair Climbing Left Railing,Right Railing Assistive Devices Technique/Endurance Stair Climbing Ascend and Descend Direction Stair Climbing Step to Step Technique Number of Steps 1 Climbed Stair Climbing Set # 3 Repetitions (reps) Comments Stair Climbing Pt declined out of room mobility, Instructed BHRs then Comments R HR and PET CARE ASSISTANT on L asc/back step desc portable step in room. Cues for upright posture and TKE, CGA initially then increased Min A for PET CARE ASSISTANT and little trunk stability . She states her family assists her at home. PT-Balance Assessment Sitting Balance and Reactions Static Sitting Normal Balance Ability Dynamic Sitting Good Balance Ability Standing Balance and Reactions Static Standing Good Balance Ability Dynamic Standing Fair Balance Ability Device Used FWW M5 PT-IP Objective Assessments Start: 09/17/25 13:27 Freq: NEEDED Status: Active Protocol: Document 09/17/25 13:27 [facility] (Rec: 09/17/25 14:19 [facility] [id number]) Orientation Orientation/Cognition Level of Alertness Alert Language Function Hard of Hearing Ability Memory Description No Deficits Noted Gross Range of Motion Lower Extremity ROM Assessment Within Functional Limits Strength Lower Extremity Strength Assessment Bilaterally Impaired Hip groslly 4/5 Knee 4/5 Ankle 4+/5 M6 PT-IP Treatment Start: 09/17/25 13:27 Freq: NEEDED Status: Active Protocol: Document 09/18/25 15:07 NW (Rec: 09/18/25 15:16 NW [id number]) Physical Therapy Treatment Exercises Exercises Heel Slides,Straight Leg Raises,Supine Hip Abduction Education Education Provided Safety Other Treatments Other Treatment Education given to pt regarding with increase arousal Performed to spend time up in chair out of bed. supine bed exercises: 2 x 10 M7 PT-IP Assessment and Plan Start: 09/17/25 13:27 Freq: NEEDED Status: Active Protocol: Document 09/19/25 10:31 SP (Rec: 09/19/25 11:21 SP Laptop) PT Summary Assessment and Plan Potential Rehabilitation Good Potential Status of Condition Evolving at Evaluation Summary Impairments Strength,Balance,Bed Mobility,Transfers,Gait,Activity Tolerance Assessment Summary Pt presents w/COPD and CHF exacerbation and PNA with dec activity tolerance and weakness. Improved decrease assist SBA during elevated bed mobility, CGA during transfers and gait with FWW, 3 portable step mgt BUE use of FWW then 1 handle and PET CARE ASSISTANT on L while MAINTENANCE TEAM LEADER stabilized FWW to assess strength for 3 step mgt home needs to enter home. MAINTENANCE TEAM LEADER recommending HHPT and 30/04 of family assist when medically cleared to [place]. will continue to assess progress. Goals Bed Mobility Goal Independent Transfer Goal Independent Gait Goal Independent Gait Distance 150ft w/LRAD Other Goals up/down 5 stairs w/rail SBA Days to Meet Goals 10 Frequency of Treatment Frequency Of Once a Day Treatment Treatment Plan Physical Therapy Bed Mobility Training,Transfer Training,Gait Training, Treatment Plan Therapeutic Exercise,Balance Retraining,Discharge Planning,Neuromuscular Re-ed,Coordination Retraining, Manual Therapy Other Could try gait outside room and steps in hallway with Recommendations and portable O2 next tx if tolerated. Next Treatment Focus Precautions Other Precautions O2 sat Weight Bearing Status Weight Bearing Full Weight Bearing Status Recommendations To Nursing Amount of Assist 1 Person Assist Needed Discharge Recommendations PT Discharge Home with 24/7 Assist Available,Home Health Recommendations Transportation Needs Private Vehicle at Discharge - PT assist 1
--- NOTE | 2025-09-19 11:33 | CM.DPC ---
Addendum entered by MITCHEL Aponte 09/19/25 14:03: ADD: Per MD, anticipated discharging pt home today but met with pt and family bedside and they have concerns pt was getting Lorazepam nightly and will d/c this medication as she rarely takes it at home and then work with PT in the AM again. Family wanting guarantee when HH will start, explained they typically have to wait until discharge to schedule but SW sent [facility] msg to request they hold a spot for pt if possible for jose maria. SW discussed with MD if pt stable tomorrow and family still refusing to transport pt home then family could appeal pt's discharge through [facility]. to discuss this with family today. SW to follow closely in AM for plan of discharge and possible appeal by family pending pt's continued improved progress. BF Original Note: DCP Home with HH Per [facility], pt improved today with mobility and endurance and recommending home with family assist and HH. [facility] referral already made and F2F sent in as well. KITA completed HH orders and awaiting confirmation from MD that pt is stable for discharge home today. MITCHEL Aponte
--- NOTE | 2025-09-19 14:28 | PM.PN.1 ---
Subjective Subjective Date Patient Seen: 09/19/25 Interval history: This is an 89-year-old female with a medical history of MDS, chronic anemia COPD not oxygen dependent, CHF, hypertension who presents with shortness of breath. Per the patient report, over the last 2 to 3 days, the patient has been having increased shortness of breath and a productive cough with some greenish sputum. The patient also has increasing wheezing and lower extreme edema. The patient however denies any fever, chills, nausea, vomiting, diarrhea, chest pain, productive cough or syncope. In the emergency room, the patient was hemodynamically stable but was requiring 1 to 2 L oxygen per nasal cannula. Labs shows a WBC of 12.6 hemoglobin 6.8 sodium 122 creatinine 2.35 BNP of 10,300 troponin 0.01. Influenza and COVID RSV are negative. The patient was given IV Lasix along with 1 unit of packed red blood cells. IV dexamethasone milligram as well as DuoNebs were given. Rocephin and azithromycin given. 09/15: She is quite distracted today by her family visit. She says she is feeling better and has no other questions. The hemoglobin has risen from 6.8 up to 8.8 after the blood transfusion. The sodium level is improving at 124. The creatinine is also improving at 2.22. The magnesium level remains high at 2.5. She already follows up with Nephrology for her CKD. She lives with her family here in [facility]. 09/16: A little confused per her daughter. Received medication overnight to help sleep. 09/17: Appears to be improving overall, more interactive and not confused. Less coughing. 09/18: Comfortable on oxygen, no issues with pain or severe cough today. Actively working with physical therapy. Apparently was able to walk 35 ft yesterday but does not look quite that stable today. Sodium remains low at 123 with a creatinine of 2.24. 09/19: Was able to walk 30 ft in the room with physical therapy today. Has not tried steps yet. Has 3 steps to enter her house. Discussed discharge with her daughter and son-in-law today. The patient appears to be medically stable but has been getting nightly lorazepam on the basis of our understanding that that was her home routine. Apparently she does not take that regularly and that may be contributing to some of her slow recovery. That will be stopped today. Tentative discharge tomorrow. Discussed issues with home health PT/OT and again recommended [facility] facility which the patient and her family declined. Discussed Medicare process of appealing discharge if family disagrees with medical stability. That will be pertinent tomorrow. Hemoglobin 8.2 compared to 7.9 yesterday. Sodium level 124. Creatinine 2.15. NAD, alert and oriented. Fluent speech. [place]. Frail, comfortable. Interactive. Lungs are clear, normal rate and effort. Heart is regular, no murmur gallop or rub. Abdomen is soft, non distended. Extremities are free of edema. Neuro: Moves all extremities weakly. IMAGING: CXR: Interval worsening of bilateral hilar fullness and left greater than right patchy airspace opacities with suggestion of small left greater than right pleural effusions, which is concerning for an infectious or inflammatory. Chest CT: Multifocal bronchopneumonia. Differential includes aspiration pneumonia, but is less likely given the non dependent distribution. Superimposed moderate pulmonary edema and small pleural effusions. A/P: 1. Acute on chronic heart failure exacerbation. Improving. -Continue IV Lasix with strict I's and O and daily weight. -Monitor renal function. 2. Multifocal pneumonia. Improving. -Continue IV ceftriaxone. Completed Azithromycin course. 3. Possible COPD exacerbation. Improving. -Continue Solu-Medrol and DuoNebs. Patient received IV Decadron in the ER. -Decreased Solumedrol to 40 mg q12h on 09/18. 4. Acute respiratory failure with hypoxemia. Active. -Treat as above and wean oxygen as able. Currently patient is on 1 to 2 L of oxygen. 5. Hyponatremia. Stable at 124. -Likely secondary to hypervolemia. -IV Lasix and monitor sodium level. 6. Acute on chronic anemia. Active. -Hemoglobin 8.6 at baseline. On admission at 6.9. Likely due to underlying MDS. -Patient got 1 unit packed red blood cell in the ER. In addition patient does have chronic renal insufficiency. -Will monitor for any bleeding and recheck hemoglobin after transfusion. 7. Hypertension. Monitor blood pressure and resume home medication accordingly. Stable. 8. Acute encephalopathy likely related to medications, resolved. 9. CKD 10. Generalized Weakness of Age and Chronic Illness -appears to be appropriate for discharge to [facility] facility which the patient and the family declined. -continues to need physical therapy, ideally daily in a skilled setting but prefers home health. Unfortunately there frequently delays in getting the 1st visit. PLAN: -monitor labs -gentle diuresis -decreased Solumedrol to q12h, continue ceftriaxone. -avoid sedating medications -monitor sodium -PT for discharge -stop nightly lorazepam SUAD: 09/19 to home? Family indicates they are likely to appeal any discharge in the next few days through the Medicare appeal process. DVT prophylaxis SCDs. CODE STATUS full code. Exam Vital Signs (past 8 hours): - 09/19/25 08:37 09/19/25 08:45 09/19/25 09:19 Temperature 97.1 F L Pulse Rate 63 99 H Respiratory Rate 16 18 Blood Pressure 136/74 136/74 Pulse Oximetry 97 97 Oxygen Delivery Method Nasal Cannula Oxygen Flow Rate 3 Fraction of Inspired Oxygen 24 09/19/25 10:00 Temperature Pulse Rate Respiratory Rate Blood Pressure Pulse Oximetry Oxygen Delivery Method Nasal Cannula Oxygen Flow Rate Fraction of Inspired Oxygen Fraction of Inspired Oxygen 24 SaO2/FiO2 Ratio 391 Oxygen Delivery Method Nasal Cannula Oxygen Flow Rate 3 Objective Labs 09/19/25 05:16 09/19/25 05:16 Labs: Laboratory Results - last 24 hr 09/19/25 05:16 WBC 14.0 H RBC 2.65 L Hgb 8.2 L Hct 24.3 L MCV 91.8 MCH 30.9 MCHC 33.7 RDW 14.6 Plt Count 374 Neut % (Auto) 94.0 H Lymph % (Auto) 2.3 L [place] % (Auto) 3.6 Eos % (Auto) 0.0 L Baso % (Auto) 0.1 Neut # (Auto) 19541 H Lymph # (Auto) 300 L [place] # (Auto) 500 Eos # (Auto) 0 Baso # (Auto) 0 Sodium 124 L Potassium 4.7 Chloride 85 L Carbon Dioxide 36 H BUN 75 H Creatinine 2.15 H Estimated GFR 21 L BUN/Creatinine Ratio 34.9 H Glucose 111 H Calcium 8.3 L PFSH Medical History Chronic cough (~1985) Anemia Recurrent sinusitis History of recurrent ear infection Hearing loss (~2017) Cataracts, bilateral (~2018) CKD stage G4/A3, 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 Hypertension (~2018) MGUS (monoclonal gammopathy of unknown significance) COPD (chronic obstructive pulmonary disease) CKD (chronic kidney disease) stage 3, GFR 30-59 ml/min Surgical History Anesthesia History of colonoscopy (~2006) History of section History of nasal septoplasty (~2015) History of hysterectomy (~1981) History of exploratory laparotomy (~1984) Family History Father COPD (chronic obstructive pulmonary disease) Mother Cancer Sister Diabetes mellitus Grandfather Stroke Grandmother History of heart disease Grandfather History of heart disease Grandmother History of heart disease Social History household members: family and children Smoking Status: Never smoker alcohol intake: never Assessment & Plan Time-Based Coding :: [TOTAL MINUTES] spent with patient and on the chart (including review of chart, obtaining history, exam, reviewing outside data, placing orders, documenting exam and treatment plan, and counseling patient) on [DATE].
[2025-09-19] MEDS: MIRTAZAPINE 15 MG TABLET PO (21:09)
[2025-09-19] MEDS: MELATONIN 3 MG TABLET 6 MG PO (21:14)
[2025-09-19] MEDS: ACETAMINOPHEN 325 MG TABLET 650 MG PO (21:41)
[2025-09-20] MEDS: methylPREDNISolone succ 40 MG/ML VIAL IV (02:08)
[2025-09-20] MEDS: FUROSEMIDE 40 MG/4 ML VIAL IV ×2 (04:44→12:41)
[2025-09-20 08:00] VITALS: BP 117/57; PULSE 60; RESP 16; TEMP 36.3; O2SAT 97
[2025-09-20] MEDS: HEPARIN 5,000 UNIT/ML VIAL 5000 UNIT SUBCUT (08:30)
[2025-09-20] MEDS: SODIUM CHLORIDE 0.9% FLUSH 10 ML IV (08:31)
[2025-09-20 08:45] VITALS: PULSE 61; RESP 20; O2SAT 97
[2025-09-20] MEDS: ALBUTEROL/IPRATROPIUM 3 ML AMPUL INH (08:45)
--- NOTE | 2025-09-20 11:40 | P.DS_ITS ---
History of Present Illness History of Present Illness Date Patient Seen: 09/20/25 Time Patient Seen: 11:40 Chief complaint: Cough x 3 days Narrative: 89-year-old female medical history of MDS, chronic anemia COPD not oxygen dependent, CHF, hypertension, presents with complaint of shortness of breath. Per the patient report, over the last 2 to 3 days, the patient has been having increased shortness of breath and a productive cough with some greenish sputum. The patient also has increasing wheezing and lower extreme edema. The patient however denies any fever, chills, nausea, vomiting, diarrhea, chest p productive cough ain or syncope. In the emergency room, the patient was hemodynamically stable but was requiring 1 to 2 L oxygen per nasal cannula. Labs shows a WBC of 12.6 hemoglobin 6.8 sodium 122 creatinine 2.35 BNP of 10,300 troponin 0.01. Influenza and COVID RSV are negative. The patient was given IV Lasix along with 1 unit of packed red blood cells. IV dexamethasone milligram as well as DuoNebs were given. Rocephin and azithromycin given. 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 Consult to Speech Therapy Evaluate & Treat Comment: Physician Instructions: Evaluate and treat 09/15/25 15:02 Consult to Dietitian, Adult Routine Comment: Reason For Exam: Weight loss d/t chronic dysphagia 09/16/25 07:52 Consult to Pharmacy Routine Comment: Per assessment 09/17/25 09:01 Consult to Physical Therapy Evaluate & Treat Comment: Physician Instructions: Evaluate and Treat 09/17/25 10:22 Consult to Pharmacy Routine Comment: per assessment 09/18/25 12:44 Consult to Home Health Routine Comment: RN, POLICE CADET, OT, PT, Bath Aide Reason For Exam: Home Health Services Discharge provider: Ric Hinojosa MD Summary Hospital Course Hospital Course: 09/15: She is quite distracted today by her family visit. She says she is feeling better and has no other questions. The hemoglobin has risen from 6.8 up to 8.8 after the blood transfusion. The sodium level is improving at 124. The creatinine is also improving at 2.22. The magnesium level remains high at 2.5. She already follows up with Nephrology for her CKD. She lives with her family here in town. 09/16: A little confused per her daughter. Received medication overnight to help sleep. 09/17: Appears to be improving overall, more interactive and not confused. Less coughing. 09/18: Comfortable on oxygen, no issues with pain or severe cough today. Actively working with physical therapy. Apparently was able to walk 35 ft yesterday but does not look quite that stable today. Sodium remains low at 123 with a creatinine of 2.24. 09/19: Was able to walk 30 ft in the room with physical therapy today. Has not tried steps yet. Has 3 steps to enter her house. Discussed discharge with her daughter and son-in-law today. The patient appears to be medically stable but has been getting nightly lorazepam on the basis of our understanding that that was her home routine. Apparently she does not take that regularly and that may be contributing to some of her slow recovery. That will be stopped today. Tentative discharge tomorrow. Discussed issues with home health PT/OT and again [facility] which the patient and her family declined. Discussed Medicare process of appealing discharge if family disagrees with medical stability. That will be pertinent tomorrow. Hemoglobin 8.2 compared to 7.9 yesterday. Sodium level 124. Creatinine 2.15. 09/20: PT work with her today. Physical therapy reports that She was able to maneuver in the room with her walker and with assistance to climb enough stairs to get into her house at home. She was definitely more alert today, told me she was planning to take a shower, something she had not even been able to process or think about as far as I could tell before today. The Solu-Medrol a can be stopped. The hemoglobin was stable yesterday at 8.2 so was not repeated today. NAD, alert and oriented. Fluent speech. [place]. Frail, comfortable. Interactive. Lungs are clear, normal rate and effort. Heart is regular, no murmur gallop or rub. Abdomen is soft, non distended. Extremities are free of edema. Neuro: Moves all extremities weakly. IMAGING: CXR: Interval worsening of bilateral hilar fullness and left greater than right patchy airspace opacities with suggestion of small left greater than right pleural effusions, which is concerning for an infectious or inflammatory. Chest CT: Multifocal bronchopneumonia. Differential includes aspiration pneumonia, but is less likely given the non dependent distribution. Superimposed moderate pulmonary edema and small pleural effusions. 1. Acute on chronic heart failure exacerbation. Resolved -resume home oral Lasix dose. 2. Multifocal pneumonia. Resolved -completed 6 days of IV ceftriaxone and 3 days of IV azithromycin. 3. Possible COPD exacerbation. Resolved -responded to IV Solu-Medrol and DuoNebs. Patient received IV Decadron in the ER. -Decreased Solumedrol to 40 mg q12h on 09/18. Unlikely to need continued prednisone at home. 4. Acute respiratory failure with hypoxemia. Stable -Treat as above and wean oxygen as able. Currently patient is on 1 to 2 L of oxygen. 5. Hyponatremia. Stable at 124. -Likely secondary to hypervolemia. -appears to have returned to baseline in the mid 120s. 6. Acute on chronic anemia. Active. -Hemoglobin 8.6 at baseline. On admission at 6.9. Likely due to underlying MDS. At discharge 8.2. -received 1 unit packed red blood cell in the ER. In addition patient does have chronic renal insufficiency. -needs follow up CBC in 1 week. 7. Hypertension. Monitor blood pressure and resume home medication accordingly. Stable. 8. Acute encephalopathy likely related to medications, resolved. 9. CKD 10. Generalized Weakness of Age and Chronic Illness -appears to be appropriate for discharge to [facility] which the patient and the family declined. -continues to need physical therapy, ideally daily in a skilled setting but prefers home health. -we contacted [facility] and asked them to reserve an early date for initiation of home health PT. -on the day of discharge the patient was able to maneuver in her room with her walker, was able to climb enough stairs to enter her house, at her baseline, requiring one-person assist. She is stable for discharge today. Family indicates they are likely to appeal the discharge plan for today through the Medicare appeal process. Status at Discharge Cognitive/behavioral status at discharge: at baseline, confused Functional status at discharge: uses cane/walker Overall status at discharge: patient is progressing back to baseline Time Spent with Patient Time spent: Greater than 30 minutes Exam Vital Signs (past 8 hours): - 09/20/25 08:00 09/20/25 08:45 Temperature 97.4 F L Pulse Rate 60 61 Respiratory Rate 16 20 Blood Pressure 117/57 L Pulse Oximetry 97 97 Oxygen Delivery Method Nasal Cannula Oxygen Flow Rate 3 Fraction of Inspired Oxygen 32 Fraction of Inspired Oxygen 32 SaO2/FiO2 Ratio 290 Oxygen Delivery Method Nasal Cannula Oxygen Flow Rate 3 Objective Labs 09/19/25 05:16 09/19/25 05:16 [facility] Medical History Chronic cough (~1985) Anemia Recurrent sinusitis History of recurrent ear infection Hearing loss (~2017) Cataracts, bilateral (~2018) CKD stage G4/A3, 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 Hypertension (~2018) MGUS (monoclonal gammopathy of unknown significance) COPD (chronic obstructive pulmonary disease) CKD (chronic kidney disease) stage 3, GFR 30-59 ml/min Surgical History Anesthesia History of colonoscopy (~2006) History of section History of nasal septoplasty (~2015) History of hysterectomy (~1981) History of exploratory laparotomy (~1984) Family History Father COPD (chronic obstructive pulmonary disease) Mother Cancer Sister Diabetes mellitus Grandfather Stroke Grandmother History of heart disease Grandfather History of heart disease Grandmother History of heart disease Social History household members: family and children Smoking Status: Never smoker alcohol intake: never Discharge Plan Discharge Plan Patient Disposition: Home Health Service Transfer to: [facility] Discharge Comment: Follow up with Dr. Aleman in 1 week Discharge orders & Medications Prescriptions: Continued mirtazapine [Remeron] 15 mg tablet 15 mg PO BEDTIME PreserVision AREDS 2 Plus MV 200 mcg-15 mcg- 5 mg-1 mg Capsule 2 cap PO DAILY amlodipine [Norvasc] 5 mg tablet 5 mg PO 2XD candesartan 16 mg tablet 16 mg PO DAILY furosemide 40 mg tablet 40 mg PO DAILY Qty: 30 0RF ferrous sulfate [FeroSul] 325 mg (65 mg iron) tablet 325 mg PO QAM acetazolamide 125 mg tablet 125 mg PO DAILY ([facility]) Oxygen See Rx Instructions .Route .MEDSUPPLY Qty: 1 0RF Rx Instructions: SUPPLEMENTAL OXYGEN 2L at rest, 6L with exertion Portable oxygen concentrator for mobilization outside home or cannister Send to [facility] DIAGNOSIS: CHRONIC RESPIRATORY FAILURE WITH HYPOXEMIA DURATION OF NEED: 99 MONTHS carvedilol 25 mg tablet 25 mg PO BID Rx Instructions: must administer with a meal/food hydralazine 25 mg tablet 50 mg PO BEDTIME Supplemental oxygen 2 - 4 l inhalation DAILY Qty: 1 0RF Rx Instructions: Portable oxygen tank for continuous flow 2-4 liters/minute. Oxygen tank fill unit. Discontinued lorazepam [Ativan] 0.5 mg tablet 0.5 mg PO BEDTIME PRN (Reason: Sleep) Follow up/Referrals: Harshal Aleman MD [Primary Care Provider, Family Practice] Diet/Activity/Treatments Diet: Regular Visit Report/Discharge Packet Stand Alone Forms: Patient Portal/API, Stroke Signs & Symptoms Discharge Data Primary Care Provider: Harshal Aleman
--- NOTE | 2025-09-20 11:41 | PT.IPTN ---
Current Diagnoses Heart failure, unspecified (09/14/25) Physical Therapy Treatment Note M2 PT-IP Current Condition Start: 09/17/25 13:27 Freq: NEEDED Status: Active Protocol: Document 09/19/25 10:31 SP (Rec: 09/19/25 11:21 SP Laptop) Physical Therapy Current Condition Current Condition Evaluation Date 09/17/25 Treatment Diagnosis CHF exacerbation, weakness M3 PT-IP Subjective Start: 09/17/25 13:27 Freq: NEEDED Status: Active Protocol: Document 09/20/25 11:33 KJ (Rec: 09/20/25 11:40 KJ [id number]) Subjective Physical Therapy Visit Type Type Treatment Note Visit Start Time 10:47 Visit Stop Time 11:28 Physical Therapy Visit Comments Patient Comments Pt states she is ready to go home. She says her family helps her up the stairs at home. Therapy Pain Assessment Pain Present Pain Present Denied Pain M4 PT-IP Mobility and Gait Start: 09/17/25 13:27 Freq: NEEDED Status: Active Protocol: Document 09/20/25 11:33 KJ (Rec: 09/20/25 11:40 KJ [id number]) PT-Bed Mobility Assessment Rolling Type of Rolling Roll to Left Level of Assist Standby Assistance Supine to Sit Supine to Sit Standby Assistance Scooting Scooting to Edge of Standby Assistance Bed PT-Transfer Assessment Sit to and From Stand Sit to and from Standby Assistance Stand Equipment Transfer Assistive Gait Belt,Front Wheeled Walker Device Transfers Transfer Destination Chair Transfer Technique Stand Step Pivot Transfer Ability Level of Assist Contact Guard Assistance Comments Mobility Comments Gait slow and steady. Cuing provided to reach for chair before sitting in it. Gait Assessment Gait Gait Assistance Standby Assistance Required: Distance (Feet) 10 Assistive Devices Assistive Device Gait Belt,4 Wheeled Walker Gait Deviations General Gait Pattern Decreased Stride Length Factors Limiting Gait Function Factors Limiting Decreased Activity Tolerance Gait Function Comments Gait Comments Pt says she is happy to get out of bed after being in it all night. Ambulates well for short distances with O2 at 3l. Sats drop after activity but recover in 2-3 minutes. Stair Climbing Assessment Evaluation Level of Assist On Minimal Assistance Stairs Devices Stair Climbing Left Railing,Right Railing Assistive Devices Technique/Endurance Stair Climbing Ascend and Descend Direction Stair Climbing Step to Step Technique Number of Steps 2 Climbed Stair Climbing Set # 2 Repetitions (reps) Comments Stair Climbing At first attempt pt required min assist to ascend step. Comments At second attempt pt required CGA to ascend. Pt was hesitant to step down the step but reassured w/CGA. PT-Balance Assessment Sitting Balance and Reactions Static Sitting Good Balance Ability Dynamic Sitting Good Balance Ability Standing Balance and Reactions Static Standing Good Balance Ability Dynamic Standing Good Balance Ability M5 PT-IP Objective Assessments Start: 09/17/25 13:27 Freq: NEEDED Status: Active Protocol: Document 09/20/25 11:33 KJ (Rec: 09/20/25 11:40 KJ [id number]) Orientation Orientation/Cognition Level of Alertness Alert M6 PT-IP Treatment Start: 09/17/25 13:27 Freq: NEEDED Status: Active Protocol: Document 09/20/25 11:33 KJ (Rec: 09/20/25 11:40 KJ [id number]) Physical Therapy Treatment Exercises Exercises Ankle Pumps,Short Arc Quads Education Education Provided Safety Other Treatments Other Treatment Monitored O2 sats during activity and provided rest Performed period to recover prior to additional activity sessions . M7 PT-IP Assessment and Plan Start: 09/17/25 13:27 Freq: NEEDED Status: Active Protocol: Document 09/20/25 11:33 KJ (Rec: 09/20/25 11:40 KJ [id number]) PT Summary Assessment and Plan Potential Rehabilitation Excellent Potential Status of Condition Evolving at Evaluation Summary Impairments Activity Tolerance Progress Towards Progressing Toward Goals Goals Assessment Summary Pt appears to be at baseline for mobility. At home, her family helps her on the stairs. She has multiple family members at home to help her. Treatment Plan Physical Therapy Gait Training,Therapeutic Exercise Treatment Plan Discharge Recommendations PT Discharge Home with Assistance Recommendations Transportation Needs Private Vehicle at Discharge
--- NOTE | 2025-09-20 11:51 | CM.DPC ---
Addendum entered by Elana Kirk RN 09/20/25 14:32: CM spoke with patient's DRTMeri, at bedside and discussed discharging home with HH. Meri is aware that the hospital cannot guarantee next day service. Addendum entered by Elana Kirk RN 09/20/25 13:04: DC Summary and Face Sheet sent to [facility]. Addendum entered by Elana Kirk RN 09/20/25 12:17: Patient's DRTMeri, returned call. Per Meri, she will be in later case picker patient. Meri informed of the Medicare Appeal process. At this time Meri did not state that she would Appeal the DC. [employer] provided, at bedside. Addendum entered by Elana Kirk RN 09/20/25 12:01: IMM at bedside. Original Note: CM left VM with PT's Meri CARNEY. P. [phone]. CM informed Meri of active DC Order and Appeal info available if requested.
--- NOTE | 2025-09-20 14:15 | PC.NURSE ---
While d/c packet was being gathered, pt's dtr told staff that she had questions about home health. RN notified Nina from care management, who went into pt's room. RN assembled d/c packet and went to pt's bedside where the pt and daughter were waiting. RN asked if their questions had been answered, to which pt's dtr said, I guess. I was trying to get information about who called [facility] and who they spoke to there, but she said she couldn't give me that information. Pt's dtr then asked which location of [facility] would be helping them. RN said she did not know for sure because she did not make the phone call and was not involved with that part of the d/c process. RN discussed d/c packet, including the medication list. Pt's dtr said she did not think the dose was correct for pt's lasix. Dtr raised her voice to pt and asked what dose she was taking. RN explained that the pt was on a different dose while she was inpatient. RN showed pt's dtr the MD instructions to follow up with pt's PCP within one week. Pt's dtr said Well, he's been out of commission for awhile because he had surgery. RN asked if they intended to wait until the doctor was back in the office or if there was another provider they could see in the mean time. RN did not get a clear answer from pt's dtr. RN asked if there were any misunderstandings or any confusion about the discharge plans. Pt's dtr raised her voice and said, Not really, you guys are kicking us out, you're not really telling us what we're supposed to do. RN tried to explain the discharge plans, but pt's dtr continued to express her frustrations and shook her head. RN asked pt's dtr if she wanted to sign the d/c paperwork, and dtr gestured to pt and said, She's not an invalid, she can sign herself. We told you guys, this is not her normal, but you won't listen to us. Pt signed d/c paperwork. RN handed the rest of d/c packet to pt's dtr, which also included [facility] information and information about appealing the d/c. Upon exiting, pt's dtr refused to carry any of pt's belongings. Pt exited via w/c with PCT and dtr to private vehicle.
== END 2025-09-20 14:13 | disposition home health service (06) | DRG 291 ==
LOC: ED 21:08 → AC 21:23
PROVIDERS: Family Medicine; Hospitalist; Student in an Organized Health Care Education/Training Program; Admitting Provider Internal Medicine; Emergency Provider Emergency Medicine; Family Provider Family Medicine; PCP Family Medicine; Referring Provider Emergency Medicine; Visit Provider Internal Medicine
DX: I13.0 Hypertensive heart and chronic kidney disease with heart failure and stage 1 through stage 4 chronic kidney disease, or unspecified chronic kidney disease (principal); G92.8 Other toxic encephalopathy; J18.9 Pneumonia, unspecified organism; J96.01 Acute respiratory failure with hypoxia; E87.1 Hypo-osmolality and hyponatremia; J44.1 Chronic obstructive pulmonary disease with (acute) exacerbation; J44.0 Chronic obstructive pulmonary disease with (acute) lower respiratory infection; I50.9 Heart failure, unspecified; D46.9 Myelodysplastic syndrome, unspecified; N18.9 Chronic kidney disease, unspecified; T50.905A Adverse effect of unspecified drugs, medicaments and biological substances, initial encounter; R53.1 Weakness
CPT/HCPCS: 36415; 36430; 71045; 71250; 80048; 80053; 81001; 82550; 82805; 83605; 83690; 83735; 83880; 84484; 85025; 85610; 85730; 86850; 86870; 86900; 86901; 86902; 87040; 87637; 92526; 92610; 94640; 94760; 94762; 96365; 96367; 96368; 96375; 97110; 97162; 97530; 99285; P9016; J0696; J1100; J1644; J1938; J2919; J7050; J7060